=== PATIENT | male | born 1960 | race African-American/Black ===

== ENCOUNTER 2016-06-03 19:24 | Inpatient (IN) | payer MEDICARE, OTHER ==
[2016-06-03 19:53] VITALS: BMI 32.6
--- NOTE | 2016-06-03 20:20 | HP ---
CIWA Score - CIWA Score Nausea/Vomitin Muscle Tremors: 4-Moderate,w/Arms Extend Anxiety: 4-Mod. Anxious/Guarded Agitation: 4-Moderately Restless Paroxysmal Sweats: 1-Minimal Palms Moist Orientation: 0-Oriented Tacttile Disturbances: 0-None Auditory Disturbances: 0-None Visual Disturbances: 0-None Headache: 0-None Present CIWA-Ar Total Score: 16 Admission ROS BHS - HPI Chief Complaint: C/O WITHDRAWAL SX'S. SEEKING DETOX TXMENT Allergies/Adverse Reactions: Allergies Allergy/AdvReac Type Severity Reaction Status Date / Time morphine Allergy Intermediate Hives Verified 06/03/16 20:15 tomato [Tomato] Allergy Intermediate RASH/ITCHIN Verified 06/03/16 20:15 G milk Allergy Mild Hives Verified 06/03/16 20:15 History of Present Illness: 55 Y.O. MALE WITH OPIOID DEPENDENCE ADMITTED TO DETOX FOR ALCOHOLISM. CLIENT IS KNOWN TO [facility]. REPORTS LONGEST CLEAN TIME 2.5 YEARS. Exam Limitations: No Limitations - Ebola screening Have you traveled outside of the country in the last 21 days: No Have you had contact with anyone from an Ebola affected area: No Have you been sick,other than usual withdrawal symptoms: No Do you have a fever: No - Review of Systems Constitutional: Chills, Changes in sleep EENT: reports: Other (GLASSES) Respiratory: reports: No Symptoms reported Cardiac: reports: No Symptoms Reported GI: reports: Nausea, Vomiting : reports: No Symptoms Reported Musculoskeletal: reports: Back Pain, Joint Pain Integumentary: reports: No Symptoms Reported Neuro: reports: Other (HEAD SHAKES R/T MEDS PER PT.) Endocrine: reports: Other (H/O DM) Hematology: reports: No Symptoms Reported Psychiatric: reports: No Sypmtoms Reported Other Systems: Reviewed and Negative Patient History - Patient Medical History Hx Anemia: No Hx Asthma: Yes Hx Chronic Obstructive Pulmonary Disease (COPD): No Hx Cancer: No Hx Cardiac Disorders: No Hx Congestive Heart Failure: No Hx Hypertension: Yes Hx Hypercholesterolemia: Yes Hx Pacemaker: No HX Cerebrovascular Accident: No Hx Seizures: No Hx Dementia: No Hx Diabetes: Yes Hx Gastrointestinal Disorders: No Hx Liver Disease: No Hx Genitourinary Disorders: No Hx Sexually Transmitted Disorders: No Hx Renal Disease (ESRD): No Hx Thyroid Disease: Yes Hx Human Immunodeficiency Virus (HIV): No Hx Hepatitis C: No Hx Depression: No Hx Suicide Attempt: No Hx Bipolar Disorder: No Hx Schizophrenia: Yes Other Medical History: BIPOLAR - Patient Surgical History Past Surgical History: No Hx Neurologic Surgery: No Hx Cataract Extraction: No Hx Cardiac Surgery: No Hx Lung Surgery: No Hx Breast Surgery: No Hx Breast Biopsy: No Hx Abdominal Surgery: No Hx Appendectomy: No Hx Cholecystectomy: No Hx Genitourinary Surgery: No Hx Section: No Hx Orthopedic Surgery: No Anesthesia Reaction: No - PPD History Previous Implant?: Yes Documented Results: Negative w/proof Implanted On Prior [facility] Admission?: Yes Date: 02/13/16 Results: 0 mm PPD to be Administered?: No - Smoking Cessation Smoking history: Current every day smoker Have you smoked in the past 12 months: Yes Aproximately how many cigarettes per day: 10 Cigars Per Day: 0 Hx Chewing Tobacco Use: No Initiated information on smoking cessation: Yes 'Breaking Loose' booklet given: 06/03/16 - Substance & Tx. History Hx Alcohol Use: Yes Hx Substance Use: Yes Substance Use Type: Cocaine (UTOX NEG), Marijuana (UTOX NEG) Hx Substance Use Treatment: Yes ([facility]) - Substances Abused CHERRIE Route: Oral Frequency: Daily Amount used: 0.5 PINT Age of first use: 13 Date of Last Use: 06/03/16 Family Disease History - Family Disease History Family Disease History: Heart Disease: Father (CAD,), Mother (HTN) Admission Physical Exam [facility] - Vital Signs Vital Signs: Vital Signs - 24 hr 06/03/16 19:48 Temperature 96.9 F L Pulse Rate 94 H Respiratory 20 Rate Blood Pressure 122/85 - Physical General Appearance: Yes: Tremorous, Anxious HEENTM: Yes: EOMI, Normocephalic, Normal Voice, ASHLEY, Pharynx Normal, Other ( POOR DENTITION) Respiratory: Yes: Chest Non-Tender, Lungs Clear, Normal Breath Sounds, No Respiratory Distress, No Accessory Muscle Use Neck: Yes: No masses,lesions,Nodules, Supple, Trachea in good position Breast: Yes: Breast Exam Deferred Cardiology: Yes: Regular Rhythm, S1, S2, Tachycardia Abdominal: Yes: Normal Bowel Sounds, Non Tender, Soft Genitourinary: Yes: Within Normal Limits Back: Yes: Normal Inspection Musculoskeletal: Yes: full range of Motion, Gait Steady Extremities: Yes: Normal Capillary Refill, Normal Range of Motion, Non-Tender, Tremors 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 NML intact, Fully Oriented, Alert, Motor Strength 5/5 Integumentary: Yes: Normal Color, Dry, Warm Lymphatic: Yes: Within Normal Limits - Diagnostic (1) Alcohol dependence with uncomplicated withdrawal Current Visit: Yes Status: Chronic (2) Asthma Current Visit: Yes Status: Chronic Qualifiers: Asthma severity: mild persistent Asthma complication type: with status asthmaticus Qualified Code(s): J45.32 - Mild persistent asthma with status asthmaticus (3) Diabetes mellitus type II, non insulin dependent Current Visit: Yes Status: Chronic (4) Hypercholesteremia Current Visit: Yes Status: Chronic (5) Hypertension Current Visit: Yes Status: Chronic Qualifiers: Hypertension type: essential hypertension Qualified Code(s): I10 - Essential (primary) hypertension (6) Nicotine dependence Current Visit: Yes Status: Chronic Cleared for Admission [facility] - Detox or Rehab [facility] Level of Care: Medically Managed Detox Regimen/Protocol: Librium [facility] Breath Alcohol Content Breath Alcohol Content: 0.059 Urine Drug Screen - Results Drug Screen Negative: Yes
[2016-06-03] MEDS ORDERED: NICOTINE POLACRILEX 2 MG GUM BC PRN (20:29)
[2016-06-03] MEDS ORDERED: P-EPHED 60MG/TRIPROLIDI 2.5MG TABLET PO PRN (20:29)
[2016-06-03] MEDS ORDERED: MAG HYDROX/AL HYDROX/SIMETH 30 ML UNIT-DOSE CUP PO PRN (20:29)
[2016-06-03] MEDS ORDERED: hydrOXYzine PAMOATE 50 MG CAPSULE (FP) PO PRN (20:29)
[2016-06-03] MEDS ORDERED: chlordiazePOXIDE HCL 25 MG CAPSULE PO PRN (20:29)
[2016-06-03] MEDS ORDERED: IBUPROFEN 400 MG TABLET (FP) PO PRN (20:29)
[2016-06-03] MEDS ORDERED: ACETAMINOPHEN 325 MG TABLET (FP) PO PRN (20:29)
[2016-06-03] MEDS ORDERED: diphenhydrAMINE HCL 50 MG CAPSULE PO PRN (20:29)
[2016-06-03] MEDS ORDERED: MAGNESIUM CITRATE 300 ML BOTTLE PO PRN (20:29)
[2016-06-03] MEDS ORDERED: MENTHOL/PHENOL 1 EACH UD MM PRN (20:29)
[2016-06-03] MEDS ORDERED: guaiFENesin/D-METHORPHAN HB 10 ML UNIT-DOSE CUPS PO PRN (20:29)
[2016-06-03] MEDS ORDERED: LOPERAMIDE HCL 2 MG CAPSULE PO PRN (20:29)
[2016-06-03] MEDS ORDERED: ALBUTEROL SO4 6.7 GM HFA INHALER IH PRN (20:31)
[2016-06-03] MEDS: NICOTINE 14 MG/24 HOURS TOPICAL PATCH TD SCH (21:42)
[2016-06-03] MEDS: ATORVASTATIN CA 10 MG TABLET (FP) PO SCH (21:42)
[2016-06-03] MEDS: THIAMINE HCL 100 MG TABLET (FP) PO SCH (21:42)
[2016-06-03] MEDS: BUDESONIDE/FORMETEROL FUMARATE 160/4.5 mcg INHALER IH SCH (21:43)
[2016-06-03] MEDS: chlordiazePOXIDE HCL 25 MG CAPSULE PO SCH (22:41)
[2016-06-03] MEDS: CYCLOBENZAPRINE HCL 10 MG TABLET (FP) PO PRN (22:42)
[2016-06-03 23:06] LABS: URINE APPEARANCE CLEAR; URINE BILIRUBIN NEGATIVE (NEGATIVE); URINE BLOOD NEGATIVE (NEGATIVE); URINE COLOR YELLOW; URINE GLUCOSE (UA) NEGATIVE (NEGATIVE); URINE KETONE NEGATIVE (NEGATIVE); URINE LEUK ESTERASE NEGATIVE (NEGATIVE); URINE NITRITE NEGATIVE (NEGATIVE); URINE PROTEIN NEGATIVE (NEGATIVE); URINE UROBILINOGEN NEGATIVE E.U./dl (0.2-1.0)
[2016-06-04] MEDS: chlordiazePOXIDE HCL 25 MG CAPSULE PO SCH ×4 (05:21→22:07)
[2016-06-04] MEDS: metFORMIN HCL 500 MG TABLET (FP) PO SCH ×2 (07:15→17:23)
--- NOTE | 2016-06-04 08:56 | PN ---
S CIWA - CIWA Score Nausea/Vomitin Muscle Tremors: 3 Anxiety: 3 Agitation: 2 Paroxysmal Sweats: 1-Minimal Palms Moist Orientation: 0-Oriented Tacttile Disturbances: 1-Very Mild Itch/Numbness Auditory Disturbances: 1-Very Mild Visual Disturbances: 1-Very Mild Sensitivity Headache: 2-Mild CIWA-Ar Total Score: 17 BHS Progress Note (SOAP) Subjective: ALERT,IRRITABLE,ANXIOUS,INTERRUPTED SLEEP,TREMOR, Objective: 06/04/16 08:54 Vital Signs Temperature 97.5 F L 06/04/16 06:00 Pulse Rate 71 06/04/16 06:00 Respiratory Rate 18 06/04/16 06:00 Blood Pressure 107/65 06/04/16 06:00 O2 Sat by Pulse Oximetry (%) EKG NSR NO CHEST PAIN,NO SOB,NO DIZZINESS Laboratory Last Values POC Glucometer 90 UNITS (()) 06/04/16 04:46 Urine Color Yellow 06/03/16 21:36 Urine Appearance Clear 06/03/16 21:36 Urine pH 6.0 (5.0-8.0) 06/03/16 21:36 Ur Specific [place] 1.018 (1.001-1.035) 06/03/16 21:36 Urine Protein Negative (NEGATIVE) 06/03/16 21:36 Urine Glucose (UA) Negative (NEGATIVE) 06/03/16 21:36 Urine Ketones Negative (NEGATIVE) 06/03/16 21:36 Urine Blood Negative (NEGATIVE) 06/03/16 21:36 Urine Nitrite Negative (NEGATIVE) 06/03/16 21:36 Urine Bilirubin Negative (NEGATIVE) 06/03/16 21:36 Urine Urobilinogen Negative E.U./dl (0.2-1.0) 06/03/16 21:36 Ur Leukocyte Esterase Negative (NEGATIVE) 06/03/16 21:36 LABS PENDING Assessment: 06/04/16 08:55 WITHDRAWAL SYMPTOM Plan: CONTINUE DETOX,BGM MONITORING
[2016-06-04] MEDS: amLODIPine BESYLATE 5 MG TABLET (FP) PO SCH (10:15)
[2016-06-04] MEDS: NICOTINE 14 MG/24 HOURS TOPICAL PATCH TD SCH (10:15)
[2016-06-04] MEDS: CYCLOBENZAPRINE HCL 10 MG TABLET (FP) PO PRN (10:15)
[2016-06-04] MEDS: PRENATAL VITAMINS W/ FOLIC ACID TABLET (FP) PO SCH (10:15)
[2016-06-04] MEDS: BUDESONIDE/FORMETEROL FUMARATE 160/4.5 mcg INHALER IH SCH ×2 (10:16→22:07)
[2016-06-04 10:30] LABS: MCH 28.3 pg (25.7-33.7); MEAN CELL VOLUME 85.5 fl (80-96); MEAN PLT VOLUME 6.8 fl (7.5-11.1); PLATELET COUNT 259 K/MM3 (134-434); RDW 13.3 % (11.9-15.9); WHITE BLOOD COUNT 5.5 K/mm3 (4.0-10.0)
[2016-06-04 10:39] LABS: ALBUMIN 3.7 g/dl (3.4-5.0); ALK PHOS 78 U/L (45-117); ANION GAP 9 (8-16); BILIRUBIN,TOTAL 0.5 mg/dL (0.2-1.0); CALCIUM 8.1 mg/dL (8.5-10.1); CO2 29 mmol/L (21-32); CREATININE 0.7 mg/dL (0.7-1.3); GLUCOSE,RANDOM 86 mg/dL (74-106); SGOT/AST 18 U/L (15-37); SGPT/ALT 21 U/L (12-78); TOT PROT 6.4 g/dl (6.4-8.2)
--- NOTE | 2016-06-04 14:43 | CONSULT ---
[facility] Psychiatric Consult - Data Date of interview: 06/04/16 Admission source: [facility] Identifying data: Another admission to [facility] for this 55 y/o AA male seeking detox treatment on for alcohol,cocaine,benzodiazepine and marijuana dependence.Patient is single without children,domiciled,unemployed and supported on [facility] benefits. Substance Abuse History: - Smoking Cessation. Smoking history: Current every day smoker. Have you smoked in the past 12 months: Yes. Aproximately how many cigarettes per day: 10. Cigars Per Day: 0. Hx Chewing Tobacco Use: No. Initiated information on smoking cessation: Yes. 'Breaking Loose' booklet given : 06/03/16. - Substance & Tx. History. Hx Alcohol Use: Yes. Hx Substance Use : Yes. Substance Use Type: Cocaine (UTOX NEG), Marijuana (UTOX NEG). Hx Substance Use Treatment: Yes ([facility]). - Substances Abused. CHERRIE. Route: Oral. Frequency: Daily. Amount used: 0.5 PINT. Age of first use: 13. Date of Last Use: 06/03/16. Confirmed by patient. Medical History: Bronchial asthma,hypercholesterolemia,hypertension,diabetes mellitus-type II,COPD and a questionable history of hypothyroidism. Psychiatric History: History of two psychiatric hospitalizations at [facility] [place] [facility].Diagnosed with " schizobipolar disorder ".No OPD care.Patient states that he gets scripts from emergency room visits.Prescribed risperdal 1 mg/day + cogentin 1 mg/day + trazodone 50 mg/hs and vistaril 50 mg/hs.Last took these medications prior to this [facility] visit.Doses verified through pharmacy claims (noted filled scripts for these drugs @ the [facility] on 05/25/16).Mr Martinez denies history of suicide attempts. Physical/Sexual Abuse/Trauma History: Patient denies. Additional Comment: Drug Screen Negative: Yes.Noted. Mental Status Exam - Mental Status Exam Alert and Oriented to: Time, Place, Person Cognitive Function: Good Patient Appearance: Well Groomed Mood: Hopeful, Euthymic Affect: Normal Range Patient Behavior: Fatigued, Appropriate, Cooperative Speech Pattern: Clear, Appropriate Voice Loudness: Normal Thought Process: Goal Oriented Thought Disorder: Not Present Hallucinations: Denies Suicidal Ideation: Denies Homicidal Ideation: Denies Insight/Judgement: Fair Sleep: Fair Appetite: Good Muscle strength/Tone: Normal Gait/Station: Normal Psychiatric Findings - Problem List ([place] 1, 2,3) (1) Alcohol dependence with uncomplicated withdrawal Current Visit: Yes Status: Chronic (2) Nicotine dependence Current Visit: Yes Status: Acute (3) Schizoaffective disorder, bipolar type Current Visit: Yes Status: Chronic (4) Asthma Current Visit: Yes Status: Chronic Qualifiers: Asthma severity: mild persistent Asthma complication type: with status asthmaticus Qualified Code(s): J45.32 - Mild persistent asthma with status asthmaticus (5) Diabetes mellitus type II, non insulin dependent Current Visit: Yes Status: Chronic (6) Hypercholesteremia Current Visit: Yes Status: Chronic (7) Hypertension Current Visit: Yes Status: Chronic Qualifiers: Hypertension type: essential hypertension Qualified Code(s): I10 - Essential (primary) hypertension (8) Arthritis Current Visit: Yes Status: Chronic (9) COPD (chronic obstructive pulmonary disease) Current Visit: Yes Status: Chronic Qualifiers: COPD type: emphysema Emphysema type: unspecified Qualified Code( s): J43.9 - Emphysema, unspecified (10) Obesity Current Visit: Yes Status: Chronic - Initial Treatment Plan Initial Treatment Plan: Psychoeducation.Detoxification.Medications resumed (as per Psychiatric History list).Side effects/benefits discussed with patient.Made aware of the particular risk of priapism.Agreement (verbal) secured.Observation.No need for scripts at discharge.
[2016-06-04] MEDS: MAGNESIUM HYDROX 2400MG/30ML ORAL SUSPENSION 30 ML CUP PO PRN (17:25)
[2016-06-04] MEDS: THIAMINE HCL 100 MG TABLET (FP) PO SCH (22:08)
[2016-06-04] MEDS: traZODone HCL 50 MG TABLET (FP) PO SCH (22:08)
[2016-06-04] MEDS: BENZTROPINE MESYLATE 1 MG TABLET (FP) PO SCH (22:08)
[2016-06-04] MEDS: ATORVASTATIN CA 10 MG TABLET (FP) PO SCH (22:08)
[2016-06-04] MEDS: risperiDONE 1 MG TABLET (FP) PO SCH (22:09)
[2016-06-05] MEDS: chlordiazePOXIDE HCL 25 MG CAPSULE PO SCH ×3 (05:27→17:50)
[2016-06-05] MEDS: metFORMIN HCL 500 MG TABLET (FP) PO SCH ×2 (07:57→17:30)
--- NOTE | 2016-06-05 09:42 | PN ---
S CIWA - CIWA Score Nausea/Vomitin Muscle Tremors: 3 Anxiety: 2 Agitation: 2 Paroxysmal Sweats: 1-Minimal Palms Moist Orientation: 0-Oriented Tacttile Disturbances: 1-Very Mild Itch/Numbness Auditory Disturbances: 1-Very Mild Visual Disturbances: 1-Very Mild Sensitivity Headache: 2-Mild CIWA-Ar Total Score: 16 BHS Progress Note (SOAP) Subjective: ALERT,IRRITABLE,ANXIOUS,INTERRUPTED SLEEP,TREMOR,PAIN IN BOTH KNEES Objective: 06/05/16 09:41 Vital Signs Temperature 97.7 F 06/05/16 06:24 Pulse Rate 77 06/05/16 06:24 Respiratory Rate 18 06/05/16 06:24 Blood Pressure 127/74 06/05/16 06:24 O2 Sat by Pulse Oximetry (%) Laboratory Last Values WBC 5.5 K/mm3 (4.0-10.0) 06/04/16 07:30 RBC 4.52 M/mm3 (4.00-5.60) 06/04/16 07:30 Hgb 12.8 GM/dL (11.7-16.9) 06/04/16 07:30 Hct 38.6 % (35.4-49) 06/04/16 07:30 MCV 85.5 fl (80-96) 06/04/16 07:30 MCHC 33.0 g/dl (32.0-35.9) 06/04/16 07:30 RDW 13.3 % (11.9-15.9) 06/04/16 07:30 Plt Count 259 K/MM3 (134-434) 06/04/16 07:30 MPV 6.8 fl (7.5-11.1) L 06/04/16 07:30 Sodium 140 mmol/L (136-145) 06/04/16 07:30 Potassium 4.1 mmol/L (3.5-5.1) 06/04/16 07:30 Chloride 102 mmol/L (98-107) 06/04/16 07:30 Carbon Dioxide 29 mmol/L (21-32) 06/04/16 07:30 Anion Gap 9 (8-16) 06/04/16 07:30 BUN 18 mg/dL (7-18) D 06/04/16 07:30 Creatinine 0.7 mg/dL (0.7-1.3) 06/04/16 07:30 Creat Clearance w eGFR > 60 (>60) 06/04/16 07:30 POC Glucometer 109 UNITS (()) 06/04/16 16:39 Random Glucose 86 mg/dL (74-106) 06/04/16 07:30 Calcium 8.1 mg/dL (8.5-10.1) L 06/04/16 07:30 Total Bilirubin 0.5 mg/dL (0.2-1.0) D 06/04/16 07:30 AST 18 U/L (15-37) D 06/04/16 07:30 ALT 21 U/L (12-78) D 06/04/16 07:30 Alkaline Phosphatase 78 U/L (45-117) D 06/04/16 07:30 Total Protein 6.4 g/dl (6.4-8.2) 06/04/16 07:30 Albumin 3.7 g/dl (3.4-5.0) 06/04/16 07:30 Urine Color Yellow 06/03/16 21:36 Urine Appearance Clear 06/03/16 21:36 Urine pH 6.0 (5.0-8.0) 06/03/16 21:36 Ur Specific [place] 1.018 (1.001-1.035) 06/03/16 21:36 Urine Protein Negative (NEGATIVE) 06/03/16 21:36 Urine Glucose (UA) Negative (NEGATIVE) 06/03/16 21:36 Urine Ketones Negative (NEGATIVE) 06/03/16 21:36 Urine Blood Negative (NEGATIVE) 06/03/16 21:36 Urine Nitrite Negative (NEGATIVE) 06/03/16 21:36 Urine Bilirubin Negative (NEGATIVE) 06/03/16 21:36 Urine Urobilinogen Negative E.U./dl (0.2-1.0) 06/03/16 21:36 Ur Leukocyte Esterase Negative (NEGATIVE) 06/03/16 21:36 RPR Titer Reactive 1:2 (NONREACTIVE) H 06/04/16 07:30 T.pallidum Ab (MHA) Previously reactive (NONREACTIVE) 06/04/16 07:30 06/05/16 09:42 06/05/16 09:52 PREVIOUSLY TREATED FOR SYPHILIS Assessment: 06/05/16 09:53 WITHDRAWAL SYMPTOM Plan: CONTINUE DETOX
[2016-06-05] MEDS: CYCLOBENZAPRINE HCL 10 MG TABLET (FP) PO PRN (10:33)
[2016-06-05] MEDS: amLODIPine BESYLATE 5 MG TABLET (FP) PO SCH (10:33)
[2016-06-05] MEDS: PRENATAL VITAMINS W/ FOLIC ACID TABLET (FP) PO SCH (10:33)
[2016-06-05] MEDS: NICOTINE 14 MG/24 HOURS TOPICAL PATCH TD SCH (10:34)
[2016-06-05] MEDS: BUDESONIDE/FORMETEROL FUMARATE 160/4.5 mcg INHALER IH SCH ×2 (10:34→22:23)
[2016-06-05] MEDS: MAGNESIUM HYDROX 2400MG/30ML ORAL SUSPENSION 30 ML CUP PO PRN (15:16)
[2016-06-05] MEDS: IBUPROFEN 600 MG TABLET (FP) PO PRN (17:40)
[2016-06-05] MEDS: risperiDONE 1 MG TABLET (FP) PO SCH (22:23)
[2016-06-05] MEDS: chlordiazePOXIDE 5 MG CAPSULE PO SCH (22:23)
[2016-06-05] MEDS: THIAMINE HCL 100 MG TABLET (FP) PO SCH (22:23)
[2016-06-05] MEDS: ATORVASTATIN CA 10 MG TABLET (FP) PO SCH (22:23)
[2016-06-05] MEDS: BENZTROPINE MESYLATE 1 MG TABLET (FP) PO SCH (22:23)
[2016-06-05] MEDS: traZODone HCL 50 MG TABLET (FP) PO SCH (22:23)
[2016-06-06] MEDS: chlordiazePOXIDE 5 MG CAPSULE PO SCH ×3 (05:27→17:37)
[2016-06-06] MEDS: metFORMIN HCL 500 MG TABLET (FP) PO SCH ×2 (07:56→17:25)
[2016-06-06] MEDS: amLODIPine BESYLATE 5 MG TABLET (FP) PO SCH (10:15)
[2016-06-06] MEDS: PRENATAL VITAMINS W/ FOLIC ACID TABLET (FP) PO SCH (10:15)
[2016-06-06] MEDS: IBUPROFEN 600 MG TABLET (FP) PO PRN ×2 (10:16→21:23)
[2016-06-06] MEDS: BUDESONIDE/FORMETEROL FUMARATE 160/4.5 mcg INHALER IH SCH ×2 (10:16→22:04)
[2016-06-06] MEDS: CYCLOBENZAPRINE HCL 10 MG TABLET (FP) PO PRN (10:16)
[2016-06-06] MEDS: NICOTINE 14 MG/24 HOURS TOPICAL PATCH TD SCH (10:16)
--- NOTE | 2016-06-06 10:37 | PN ---
S Progress Note (SOAP) Subjective: ALERT,IRRITABLE,ANXIOUS,INTERRUPTED SLEEP Objective: 06/06/16 10:36 Vital Signs Temperature 98.1 F 06/06/16 09:50 Pulse Rate 78 06/06/16 09:50 Respiratory Rate 18 06/06/16 09:50 Blood Pressure 141/78 06/06/16 09:50 O2 Sat by Pulse Oximetry (%) Assessment: 06/06/16 10:36 WITHDRAWAL SYMPTOM Plan: CONTINUE DETOX,DISCHARGE IN AM
[2016-06-06] MEDS: risperiDONE 1 MG TABLET (FP) PO SCH (22:03)
[2016-06-06] MEDS: traZODone HCL 50 MG TABLET (FP) PO SCH (22:03)
[2016-06-06] MEDS: chlordiazePOXIDE HCL 10 MG CAPSULE PO SCH (22:03)
[2016-06-06] MEDS: BENZTROPINE MESYLATE 1 MG TABLET (FP) PO SCH (22:03)
[2016-06-06] MEDS: ATORVASTATIN CA 10 MG TABLET (FP) PO SCH (22:03)
[2016-06-06] MEDS: THIAMINE HCL 100 MG TABLET (FP) PO SCH (22:04)
[2016-06-07] MEDS: chlordiazePOXIDE HCL 10 MG CAPSULE PO SCH ×2 (05:23→10:21)
[2016-06-07] MEDS: metFORMIN HCL 500 MG TABLET (FP) PO SCH (07:29)
--- NOTE | 2016-06-07 08:52 | DS ---
[facility] Detox Discharge Summary Admission Date: 06/03/16 - Physical Exam Results Vital Signs: Vital Signs Temperature 97.3 F L 06/07/16 06:00 Pulse Rate 99 H 06/07/16 06:00 Respiratory Rate 20 06/07/16 06:00 Blood Pressure 131/68 06/07/16 06:00 O2 Sat by Pulse Oximetry (%) - Medication Discharge Medications: Ambulatory Orders Budesonide/Formeterol Fumarate [SYMBICORT 160/4.5mcg -] 1 inh PO BID 01/26/13 Albuterol Sulfate Inhaler - [Ventolin HFA Inhaler -] 2 inh IH Q4H PRN #1 inh Atorvastatin Ca [Lipitor] 10 mg PO HS #30 tablet 02/02/13 Amlodipine Besylate [Norvasc -] 5 mg PO DAILY 02/11/16 Benztropine Mesylate [Cogentin -] 2 mg PO HS 02/11/16 Metformin HCl [Glucophage -] 500 mg PO BID 02/11/16 Risperidone [Risperdal] 1 mg PO HS 02/11/16 Trazodone HCl [Desyrel -] 50 mg PO HS 02/11/16
--- NOTE | 2016-06-07 08:55 | DS ---
[facility] Detox Discharge Summary Admission Date: 06/03/16 Discharge Date: 06/07/16 - History Present History: Alcohol Dependence, Cannabis Dependence, Cocaine Dependence - Physical Exam Results Vital Signs: Vital Signs Temperature 97.3 F L 06/07/16 06:00 Pulse Rate 99 H 06/07/16 06:00 Respiratory Rate 20 06/07/16 06:00 Blood Pressure 131/68 06/07/16 06:00 O2 Sat by Pulse Oximetry (%) - Treatment Hospital Course: Detox Protocol Followed, Detoxed Safely, Responded well, Discharged Condition Good - Medication Discharge Medications: Ambulatory Orders Budesonide/Formeterol Fumarate [SYMBICORT 160/4.5mcg -] 1 inh PO BID 01/26/13 Albuterol Sulfate Inhaler - [Ventolin HFA Inhaler -] 2 inh IH Q4H PRN #1 inh Atorvastatin Ca [Lipitor] 10 mg PO HS #30 tablet 02/02/13 Amlodipine Besylate [Norvasc -] 5 mg PO DAILY 02/11/16 Benztropine Mesylate [Cogentin -] 2 mg PO HS 02/11/16 Metformin HCl [Glucophage -] 500 mg PO BID 02/11/16 Risperidone [Risperdal] 1 mg PO HS 02/11/16 Trazodone HCl [Desyrel -] 50 mg PO HS 02/11/16 - Diagnosis (1) Cocaine dependence Current Visit: Yes Status: Chronic (2) Cannabis dependence Current Visit: Yes Status: Chronic (3) Nicotine dependence Current Visit: Yes Status: Chronic (4) Alcohol dependence with uncomplicated withdrawal Current Visit: Yes Status: Chronic (5) Asthma Current Visit: Yes Status: Chronic Qualifiers: Asthma severity: mild persistent Asthma complication type: with status asthmaticus Qualified Code(s): J45.32 - Mild persistent asthma with status asthmaticus (6) Diabetes mellitus type II, non insulin dependent Current Visit: Yes Status: Chronic (7) Hypertension Current Visit: Yes Status: Chronic Qualifiers: Hypertension type: essential hypertension Qualified Code(s): I10 - Essential (primary) hypertension (8) Obesity Current Visit: Yes Status: Chronic (9) Schizoaffective disorder, bipolar type Current Visit: Yes Status: Chronic - AMA Did Patient Leave Against Medical Advice: No
[2016-06-07 10:08] VITALS: BP 131/71; PULSE 92; TEMP 97.1
[2016-06-07] MEDS: PRENATAL VITAMINS W/ FOLIC ACID TABLET (FP) PO SCH (10:21)
[2016-06-07] MEDS: NICOTINE 14 MG/24 HOURS TOPICAL PATCH TD SCH (10:21)
[2016-06-07] MEDS: amLODIPine BESYLATE 5 MG TABLET (FP) PO SCH (10:21)
[2016-06-07] MEDS: BUDESONIDE/FORMETEROL FUMARATE 160/4.5 mcg INHALER IH SCH (10:21)
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
[2016-06-07] MEDS ORDERED: BENZTROPINE MESYLATE 2 MG TABLET PO SCH (22:00)
[2016-06-07] MEDS ORDERED: traZODone HCL 50 MG TABLET (FP) PO SCH (22:00)
[2016-06-07] MEDS ORDERED: risperiDONE 1 MG TABLET (FP) PO SCH (22:00)
--- NOTE | 2016-06-08 16:59 | EKG ---
Test Reason : Blood Pressure : / mmHG Vent. Rate : 089 BPM Atrial Rate : 089 BPM P-R Int : 166 ms QRS Dur : 088 ms QT Int : 350 ms P-R-T Axes : 077 010 027 degrees QTc Int : 425 ms NORMAL SINUS RHYTHM POSSIBLE INFERIOR INFARCT , AGE UNDETERMINED ABNORMAL ECG NO PREVIOUS ECGS AVAILABLE Confirmed by MURALI CASTILLO MD ([id number]) on 06/08/2016 4:59:30 PM Referred By: Confirmed By:MURALI CASTILLO MD
== END 2016-06-07 11:50 | disposition other institution (70) | DRG 897 ==
LOC: YASAS 19:24 → Y6N 21:15
PROVIDERS: ADMIT Internal Medicine Addiction Medicine; ATTEND Internal Medicine Addiction Medicine
PROC: HZ2ZZZZ Detoxification Services for Substance Abuse Treatment (ICD-10-PCS; principal; 2016-06-07)
DX: F10.230 Alcohol dependence with withdrawal, uncomplicated (principal); F14.20 Cocaine dependence, uncomplicated; J45.32 Mild persistent asthma with status asthmaticus; F12.20 Cannabis dependence, uncomplicated; F17.210 Nicotine dependence, cigarettes, uncomplicated; F25.0 Schizoaffective disorder, bipolar type; I10 Essential (primary) hypertension; E11.9 Type 2 diabetes mellitus without complications; Z79.84 Long term (current) use of oral hypoglycemic drugs; M12.9 Arthropathy, unspecified; E66.09 Other obesity due to excess calories; Z68.32 Body mass index [BMI] 32.0-32.9, adult
CPT/HCPCS: 36415; 80053; 81003; 85027; 86593; 86780; 93005; 93010; J2794

== ENCOUNTER 2016-06-07 13:51 | Inpatient (IN) | payer MEDICARE, OTHER ==
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
--- NOTE | 2016-06-07 16:18 | HP ---
DIANA PERES Rehab Assess/Revision - Admission History Admitted to Rehab from: [facility] [address] [place] Date of Admission to Rehab: 06/07/16 - Findings Detox History & Physical reviewed: Yes Concur with findings: Yes Comments/Additional Findings: transferred from detox to rehab admission as per protocol
[2016-06-07] MEDS ORDERED: diphenhydrAMINE HCL 50 MG CAPSULE PO PRN (16:19)
[2016-06-07] MEDS ORDERED: P-EPHED 60MG/TRIPROLIDI 2.5MG TABLET PO PRN (16:19)
[2016-06-07] MEDS ORDERED: MENTHOL/PHENOL 1 EACH UD MM PRN (16:19)
[2016-06-07] MEDS ORDERED: MAG HYDROX/AL HYDROX/SIMETH 30 ML UNIT-DOSE CUP PO PRN (16:19)
[2016-06-07] MEDS ORDERED: LOPERAMIDE HCL 2 MG CAPSULE PO PRN (16:19)
[2016-06-07] MEDS ORDERED: guaiFENesin/D-METHORPHAN HB 10 ML UNIT-DOSE CUPS PO PRN (16:19)
[2016-06-07] MEDS ORDERED: NICOTINE 14 MG/24 HOURS TOPICAL PATCH TD PRN (16:19)
[2016-06-07] MEDS ORDERED: MAGNESIUM CITRATE 300 ML BOTTLE PO PRN (16:19)
[2016-06-07] MEDS: metFORMIN HCL 500 MG TABLET (FP) PO SCH (17:04)
[2016-06-07] MEDS: risperiDONE 1 MG TABLET (FP) PO SCH (21:22)
[2016-06-07] MEDS: BENZTROPINE MESYLATE 1 MG TABLET (FP) PO SCH (21:22)
[2016-06-07] MEDS: traZODone HCL 50 MG TABLET (FP) PO SCH (21:22)
[2016-06-07] MEDS: hydrOXYzine PAMOATE 50 MG CAPSULE (FP) PO PRN (21:22)
[2016-06-07] MEDS: ATORVASTATIN CA 10 MG TABLET (FP) PO SCH (21:22)
[2016-06-07] MEDS: THIAMINE HCL 100 MG TABLET (FP) PO SCH (21:23)
[2016-06-08] MEDS: metFORMIN HCL 500 MG TABLET (FP) PO SCH ×2 (07:13→17:27)
[2016-06-08] MEDS: hydrOXYzine PAMOATE 50 MG CAPSULE (FP) PO PRN (08:33)
[2016-06-08] MEDS: amLODIPine BESYLATE 5 MG TABLET (FP) PO SCH (10:42)
[2016-06-08] MEDS: PRENATAL VITAMINS W/ FOLIC ACID TABLET (FP) PO SCH (10:42)
[2016-06-08] MEDS: NICOTINE POLACRILEX 2 MG GUM BUC PRN (10:43)
[2016-06-08 13:17] LABS: HIV 1 & 2 AB NEGATIVE; HIV 1 AGp24 NEGATIVE
[2016-06-08] MEDS: traZODone HCL 50 MG TABLET (FP) PO SCH (21:14)
[2016-06-08] MEDS: THIAMINE HCL 100 MG TABLET (FP) PO SCH (21:14)
[2016-06-08] MEDS: risperiDONE 1 MG TABLET (FP) PO SCH (21:14)
[2016-06-08] MEDS: BENZTROPINE MESYLATE 1 MG TABLET (FP) PO SCH (21:15)
[2016-06-08] MEDS: ATORVASTATIN CA 10 MG TABLET (FP) PO SCH (21:15)
[2016-06-09] MEDS: metFORMIN HCL 500 MG TABLET (FP) PO SCH ×2 (07:13→16:47)
[2016-06-09] MEDS: amLODIPine BESYLATE 5 MG TABLET (FP) PO SCH (10:22)
[2016-06-09] MEDS: hydrOXYzine PAMOATE 50 MG CAPSULE (FP) PO PRN ×2 (10:22→21:12)
[2016-06-09] MEDS: PRENATAL VITAMINS W/ FOLIC ACID TABLET (FP) PO SCH (10:22)
[2016-06-09] MEDS ORDERED: PT OWN MED DRAWER 7, Y5N ONE (10:26)
[2016-06-09] MEDS ORDERED: NICOTINE POLACRILEX 4 MG GUM BUC ONE (17:44)
[2016-06-09] MEDS: NICOTINE POLACRILEX 2 MG GUM BUC PRN (17:45)
[2016-06-09] MEDS: traZODone HCL 50 MG TABLET (FP) PO SCH (21:11)
[2016-06-09] MEDS: THIAMINE HCL 100 MG TABLET (FP) PO SCH (21:11)
[2016-06-09] MEDS: ATORVASTATIN CA 10 MG TABLET (FP) PO SCH (21:12)
[2016-06-09] MEDS: BENZTROPINE MESYLATE 1 MG TABLET (FP) PO SCH (21:12)
[2016-06-09] MEDS: risperiDONE 1 MG TABLET (FP) PO SCH (21:12)
[2016-06-09] MEDS: IBUPROFEN 400 MG TABLET (FP) PO PRN (21:13)
[2016-06-10] MEDS: ACETAMINOPHEN 325 MG TABLET (FP) PO PRN (06:11)
[2016-06-10] MEDS: metFORMIN HCL 500 MG TABLET (FP) PO SCH ×2 (07:07→17:11)
[2016-06-10] MEDS: amLODIPine BESYLATE 5 MG TABLET (FP) PO SCH (10:24)
[2016-06-10] MEDS: NICOTINE POLACRILEX 2 MG GUM BUC PRN (10:24)
[2016-06-10] MEDS: hydrOXYzine PAMOATE 50 MG CAPSULE (FP) PO PRN ×2 (10:24→21:11)
[2016-06-10] MEDS: PRENATAL VITAMINS W/ FOLIC ACID TABLET (FP) PO SCH (10:24)
[2016-06-10] MEDS: ALBUTEROL SO4 6.7 GM HFA INHALER IH PRN ×2 (17:12→21:13)
[2016-06-10] MEDS: traZODone HCL 50 MG TABLET (FP) PO SCH (21:11)
[2016-06-10] MEDS: THIAMINE HCL 100 MG TABLET (FP) PO SCH (21:11)
[2016-06-10] MEDS: IBUPROFEN 400 MG TABLET (FP) PO PRN (21:12)
[2016-06-10] MEDS: BENZTROPINE MESYLATE 1 MG TABLET (FP) PO SCH (21:12)
[2016-06-10] MEDS: risperiDONE 1 MG TABLET (FP) PO SCH (21:12)
[2016-06-10] MEDS: ATORVASTATIN CA 10 MG TABLET (FP) PO SCH (21:13)
[2016-06-10] MEDS ORDERED: PT OWN MED DRAWER 7, Y5N ONE (21:14)
[2016-06-11] MEDS: ALBUTEROL SO4 6.7 GM HFA INHALER IH PRN ×3 (06:30→21:22)
[2016-06-11] MEDS ORDERED: PT OWN MED DRAWER 7, Y5N ONE ×2 (06:30→10:38)
[2016-06-11] MEDS: metFORMIN HCL 500 MG TABLET (FP) PO SCH ×2 (06:32→16:53)
[2016-06-11] MEDS: hydrOXYzine PAMOATE 50 MG CAPSULE (FP) PO PRN ×2 (10:37→21:21)
[2016-06-11] MEDS: amLODIPine BESYLATE 5 MG TABLET (FP) PO SCH (10:37)
[2016-06-11] MEDS: PRENATAL VITAMINS W/ FOLIC ACID TABLET (FP) PO SCH (10:37)
[2016-06-11] MEDS: NICOTINE POLACRILEX 2 MG GUM BUC PRN ×3 (10:39→16:54)
[2016-06-11] MEDS: ACETAMINOPHEN 325 MG TABLET (FP) PO PRN (12:36)
[2016-06-11] MEDS: THIAMINE HCL 100 MG TABLET (FP) PO SCH (21:21)
[2016-06-11] MEDS: ATORVASTATIN CA 10 MG TABLET (FP) PO SCH (21:21)
[2016-06-11] MEDS: BENZTROPINE MESYLATE 1 MG TABLET (FP) PO SCH (21:21)
[2016-06-11] MEDS: traZODone HCL 50 MG TABLET (FP) PO SCH (21:21)
[2016-06-11] MEDS: risperiDONE 1 MG TABLET (FP) PO SCH (21:21)
[2016-06-12] MEDS: metFORMIN HCL 500 MG TABLET (FP) PO SCH ×2 (06:20→17:03)
[2016-06-12] MEDS: IBUPROFEN 400 MG TABLET (FP) PO PRN (10:46)
[2016-06-12] MEDS: ALBUTEROL SO4 6.7 GM HFA INHALER IH PRN ×3 (10:46→21:08)
[2016-06-12] MEDS: hydrOXYzine PAMOATE 50 MG CAPSULE (FP) PO PRN ×2 (10:46→21:06)
[2016-06-12] MEDS ORDERED: PT OWN MED DRAWER 7, Y5N ONE ×3 (10:46→21:08)
[2016-06-12] MEDS: amLODIPine BESYLATE 5 MG TABLET (FP) PO SCH (10:47)
[2016-06-12] MEDS: PRENATAL VITAMINS W/ FOLIC ACID TABLET (FP) PO SCH (10:47)
[2016-06-12] MEDS: NICOTINE POLACRILEX 2 MG GUM BUC PRN (12:34)
[2016-06-12] MEDS: traZODone HCL 50 MG TABLET (FP) PO SCH (21:06)
[2016-06-12] MEDS: THIAMINE HCL 100 MG TABLET (FP) PO SCH (21:06)
[2016-06-12] MEDS: BENZTROPINE MESYLATE 1 MG TABLET (FP) PO SCH (21:07)
[2016-06-12] MEDS: ATORVASTATIN CA 10 MG TABLET (FP) PO SCH (21:07)
[2016-06-12] MEDS: risperiDONE 1 MG TABLET (FP) PO SCH (21:07)
[2016-06-13] MEDS: metFORMIN HCL 500 MG TABLET (FP) PO SCH ×2 (06:18→16:51)
[2016-06-13] MEDS: amLODIPine BESYLATE 5 MG TABLET (FP) PO SCH (10:02)
[2016-06-13] MEDS: hydrOXYzine PAMOATE 50 MG CAPSULE (FP) PO PRN ×2 (10:02→21:23)
[2016-06-13] MEDS: PRENATAL VITAMINS W/ FOLIC ACID TABLET (FP) PO SCH (10:03)
[2016-06-13] MEDS: NICOTINE POLACRILEX 2 MG GUM BUC PRN ×2 (10:03→15:30)
[2016-06-13] MEDS ORDERED: PT OWN MED DRAWER 7, Y5N ONE (16:53)
[2016-06-13] MEDS: ALBUTEROL SO4 6.7 GM HFA INHALER IH PRN (16:53)
[2016-06-13] MEDS: MAGNESIUM HYDROX 2400MG/30ML ORAL SUSPENSION 30 ML CUP PO PRN (17:32)
[2016-06-13] MEDS: THIAMINE HCL 100 MG TABLET (FP) PO SCH (21:23)
[2016-06-13] MEDS: traZODone HCL 50 MG TABLET (FP) PO SCH (21:23)
[2016-06-13] MEDS: risperiDONE 1 MG TABLET (FP) PO SCH (21:23)
[2016-06-13] MEDS: BENZTROPINE MESYLATE 1 MG TABLET (FP) PO SCH (21:24)
[2016-06-13] MEDS: ATORVASTATIN CA 10 MG TABLET (FP) PO SCH (21:24)
[2016-06-14] MEDS: metFORMIN HCL 500 MG TABLET (FP) PO SCH ×2 (07:31→16:35)
[2016-06-14] MEDS: amLODIPine BESYLATE 5 MG TABLET (FP) PO SCH (10:29)
[2016-06-14] MEDS: PRENATAL VITAMINS W/ FOLIC ACID TABLET (FP) PO SCH (10:29)
[2016-06-14] MEDS: ALBUTEROL SO4 6.7 GM HFA INHALER IH PRN (10:30)
[2016-06-14] MEDS: NICOTINE POLACRILEX 2 MG GUM BUC PRN ×2 (10:30→18:15)
[2016-06-14] MEDS: hydrOXYzine PAMOATE 50 MG CAPSULE (FP) PO PRN ×2 (10:32→21:17)
[2016-06-14] MEDS: IBUPROFEN 400 MG TABLET (FP) PO PRN (12:38)
[2016-06-14] MEDS: ATORVASTATIN CA 10 MG TABLET (FP) PO SCH (21:16)
[2016-06-14] MEDS: THIAMINE HCL 100 MG TABLET (FP) PO SCH (21:16)
[2016-06-14] MEDS: risperiDONE 1 MG TABLET (FP) PO SCH (21:16)
[2016-06-14] MEDS: BENZTROPINE MESYLATE 1 MG TABLET (FP) PO SCH (21:16)
[2016-06-14] MEDS: traZODone HCL 50 MG TABLET (FP) PO SCH (21:16)
[2016-06-15] MEDS: metFORMIN HCL 500 MG TABLET (FP) PO SCH ×2 (07:12→16:47)
[2016-06-15] MEDS: NICOTINE POLACRILEX 2 MG GUM BUC PRN ×3 (07:46→16:47)
[2016-06-15] MEDS: hydrOXYzine PAMOATE 50 MG CAPSULE (FP) PO PRN ×2 (10:44→21:15)
[2016-06-15] MEDS: amLODIPine BESYLATE 5 MG TABLET (FP) PO SCH (10:44)
[2016-06-15] MEDS: ALBUTEROL SO4 6.7 GM HFA INHALER IH PRN (10:45)
[2016-06-15] MEDS: PRENATAL VITAMINS W/ FOLIC ACID TABLET (FP) PO SCH (10:46)
[2016-06-15] MEDS: MAGNESIUM HYDROX 2400MG/30ML ORAL SUSPENSION 30 ML CUP PO PRN (12:28)
[2016-06-15] MEDS: risperiDONE 1 MG TABLET (FP) PO SCH (21:15)
[2016-06-15] MEDS: BENZTROPINE MESYLATE 1 MG TABLET (FP) PO SCH (21:15)
[2016-06-15] MEDS: traZODone HCL 50 MG TABLET (FP) PO SCH (21:15)
[2016-06-15] MEDS: THIAMINE HCL 100 MG TABLET (FP) PO SCH (21:15)
[2016-06-15] MEDS: ATORVASTATIN CA 10 MG TABLET (FP) PO SCH (21:16)
[2016-06-16] MEDS: metFORMIN HCL 500 MG TABLET (FP) PO SCH ×2 (07:19→16:53)
[2016-06-16] MEDS: ALBUTEROL SO4 6.7 GM HFA INHALER IH PRN (10:21)
[2016-06-16] MEDS: amLODIPine BESYLATE 5 MG TABLET (FP) PO SCH (10:22)
[2016-06-16] MEDS: PRENATAL VITAMINS W/ FOLIC ACID TABLET (FP) PO SCH (10:22)
[2016-06-16] MEDS ORDERED: PT OWN MED DRAWER 7, Y5N ONE (10:22)
[2016-06-16] MEDS: hydrOXYzine PAMOATE 50 MG CAPSULE (FP) PO PRN ×3 (10:22→21:36)
[2016-06-16] MEDS: NICOTINE POLACRILEX 2 MG GUM BUC PRN (10:23)
[2016-06-16] MEDS: CYCLOBENZAPRINE HCL 10 MG TABLET (FP) PO PRN (21:35)
[2016-06-16] MEDS: BENZTROPINE MESYLATE 1 MG TABLET (FP) PO SCH (21:35)
[2016-06-16] MEDS: traZODone HCL 50 MG TABLET (FP) PO SCH (21:35)
[2016-06-16] MEDS: THIAMINE HCL 100 MG TABLET (FP) PO SCH (21:35)
[2016-06-16] MEDS: ATORVASTATIN CA 10 MG TABLET (FP) PO SCH (21:36)
[2016-06-16] MEDS: risperiDONE 1 MG TABLET (FP) PO SCH (21:36)
[2016-06-17] MEDS: metFORMIN HCL 500 MG TABLET (FP) PO SCH ×2 (06:42→16:51)
[2016-06-17] MEDS: amLODIPine BESYLATE 5 MG TABLET (FP) PO SCH (10:30)
[2016-06-17] MEDS: PRENATAL VITAMINS W/ FOLIC ACID TABLET (FP) PO SCH (10:31)
[2016-06-17] MEDS: hydrOXYzine PAMOATE 50 MG CAPSULE (FP) PO PRN ×2 (10:32→21:14)
[2016-06-17] MEDS: ALBUTEROL SO4 6.7 GM HFA INHALER IH PRN (10:32)
[2016-06-17] MEDS: NICOTINE POLACRILEX 2 MG GUM BUC PRN ×3 (10:33→19:30)
[2016-06-17] MEDS ORDERED: PT OWN MED DRAWER 7, Y5N ONE (10:33)
--- NOTE | 2016-06-17 17:04 | PN ---
[facility] Progress Note Note: RECEIVED NURSE INFORMED, PATIENT STATES THAT TAKING ASPIRIN AT HOME X "YEARS" DENIES ADVERSE REACTIONS ASPIRIN 81 MG PO DAILY CONTINUE REHAB
[2016-06-17] MEDS: CYCLOBENZAPRINE HCL 10 MG TABLET (FP) PO PRN (21:14)
[2016-06-17] MEDS: risperiDONE 1 MG TABLET (FP) PO SCH (21:14)
[2016-06-17] MEDS: THIAMINE HCL 100 MG TABLET (FP) PO SCH (21:14)
[2016-06-17] MEDS: traZODone HCL 50 MG TABLET (FP) PO SCH (21:14)
[2016-06-17] MEDS: ATORVASTATIN CA 10 MG TABLET (FP) PO SCH (21:15)
[2016-06-17] MEDS: BENZTROPINE MESYLATE 1 MG TABLET (FP) PO SCH (21:15)
[2016-06-18] MEDS: metFORMIN HCL 500 MG TABLET (FP) PO SCH ×2 (06:35→16:43)
[2016-06-18] MEDS ORDERED: PT OWN MED DRAWER 7, Y5N ONE ×2 (09:02→10:48)
[2016-06-18] MEDS: ASPIRIN 81 MG CHEWABLE TABLETS PO SCH (10:33)
[2016-06-18] MEDS: hydrOXYzine PAMOATE 50 MG CAPSULE (FP) PO PRN (10:33)
[2016-06-18] MEDS: NICOTINE POLACRILEX 2 MG GUM BUC PRN ×3 (10:33→17:40)
[2016-06-18] MEDS: amLODIPine BESYLATE 5 MG TABLET (FP) PO SCH (10:33)
[2016-06-18] MEDS: PRENATAL VITAMINS W/ FOLIC ACID TABLET (FP) PO SCH (10:33)
[2016-06-18] MEDS: ALBUTEROL SO4 6.7 GM HFA INHALER IH PRN (10:34)
[2016-06-18] MEDS: THIAMINE HCL 100 MG TABLET (FP) PO SCH (22:51)
[2016-06-18] MEDS: risperiDONE 1 MG TABLET (FP) PO SCH (22:51)
[2016-06-18] MEDS: traZODone HCL 50 MG TABLET (FP) PO SCH (22:51)
[2016-06-18] MEDS: BENZTROPINE MESYLATE 1 MG TABLET (FP) PO SCH (22:51)
[2016-06-18] MEDS: ATORVASTATIN CA 10 MG TABLET (FP) PO SCH (22:51)
[2016-06-19] MEDS: metFORMIN HCL 500 MG TABLET (FP) PO SCH ×2 (07:07→16:53)
[2016-06-19] MEDS: NICOTINE POLACRILEX 2 MG GUM BUC PRN ×3 (07:10→20:00)
[2016-06-19] MEDS: amLODIPine BESYLATE 5 MG TABLET (FP) PO SCH (10:30)
[2016-06-19] MEDS: ASPIRIN 81 MG CHEWABLE TABLETS PO SCH (10:30)
[2016-06-19] MEDS: hydrOXYzine PAMOATE 50 MG CAPSULE (FP) PO PRN ×2 (10:30→21:31)
[2016-06-19] MEDS: PRENATAL VITAMINS W/ FOLIC ACID TABLET (FP) PO SCH (10:30)
[2016-06-19] MEDS: ALBUTEROL SO4 6.7 GM HFA INHALER IH PRN ×2 (10:32→17:56)
[2016-06-19] MEDS ORDERED: PT OWN MED DRAWER 7, Y5N ONE (17:55)
[2016-06-19] MEDS: THIAMINE HCL 100 MG TABLET (FP) PO SCH (21:31)
[2016-06-19] MEDS: risperiDONE 1 MG TABLET (FP) PO SCH (21:31)
[2016-06-19] MEDS: ATORVASTATIN CA 10 MG TABLET (FP) PO SCH (21:31)
[2016-06-19] MEDS: BENZTROPINE MESYLATE 1 MG TABLET (FP) PO SCH (21:31)
[2016-06-19] MEDS: traZODone HCL 50 MG TABLET (FP) PO SCH (21:31)
[2016-06-19] MEDS: CYCLOBENZAPRINE HCL 10 MG TABLET (FP) PO PRN (21:32)
[2016-06-20] MEDS: metFORMIN HCL 500 MG TABLET (FP) PO SCH ×2 (07:17→16:55)
[2016-06-20] MEDS ORDERED: ASPIRIN 81 MG CHEWABLE TABLETS ONE (09:13)
[2016-06-20] MEDS: ASPIRIN 81 MG CHEWABLE TABLETS PO SCH (10:47)
[2016-06-20] MEDS: amLODIPine BESYLATE 5 MG TABLET (FP) PO SCH (10:47)
[2016-06-20] MEDS: PRENATAL VITAMINS W/ FOLIC ACID TABLET (FP) PO SCH (10:47)
[2016-06-20] MEDS: hydrOXYzine PAMOATE 50 MG CAPSULE (FP) PO PRN ×2 (10:49→21:46)
[2016-06-20] MEDS: risperiDONE 1 MG TABLET (FP) PO SCH (21:46)
[2016-06-20] MEDS: traZODone HCL 50 MG TABLET (FP) PO SCH (21:46)
[2016-06-20] MEDS: ATORVASTATIN CA 10 MG TABLET (FP) PO SCH (21:46)
[2016-06-20] MEDS: THIAMINE HCL 100 MG TABLET (FP) PO SCH (21:46)
[2016-06-20] MEDS: BENZTROPINE MESYLATE 1 MG TABLET (FP) PO SCH (21:46)
[2016-06-21] MEDS: metFORMIN HCL 500 MG TABLET (FP) PO SCH ×2 (06:38→17:19)
[2016-06-21] MEDS: PRENATAL VITAMINS W/ FOLIC ACID TABLET (FP) PO SCH (10:08)
[2016-06-21] MEDS: amLODIPine BESYLATE 5 MG TABLET (FP) PO SCH (10:09)
[2016-06-21] MEDS: ASPIRIN 81 MG CHEWABLE TABLETS PO SCH (10:09)
[2016-06-21] MEDS: hydrOXYzine PAMOATE 50 MG CAPSULE (FP) PO PRN ×2 (10:09→21:14)
[2016-06-21] MEDS: NICOTINE POLACRILEX 2 MG GUM BUC PRN (10:10)
[2016-06-21] MEDS: THIAMINE HCL 100 MG TABLET (FP) PO SCH (21:14)
[2016-06-21] MEDS: CYCLOBENZAPRINE HCL 10 MG TABLET (FP) PO PRN (21:14)
[2016-06-21] MEDS: traZODone HCL 50 MG TABLET (FP) PO SCH (21:14)
[2016-06-21] MEDS: risperiDONE 1 MG TABLET (FP) PO SCH (21:14)
[2016-06-21] MEDS: BENZTROPINE MESYLATE 1 MG TABLET (FP) PO SCH (21:15)
[2016-06-21] MEDS: ATORVASTATIN CA 10 MG TABLET (FP) PO SCH (21:15)
[2016-06-22] MEDS: metFORMIN HCL 500 MG TABLET (FP) PO SCH ×2 (07:30→16:53)
[2016-06-22] MEDS: PRENATAL VITAMINS W/ FOLIC ACID TABLET (FP) PO SCH (10:14)
[2016-06-22] MEDS: amLODIPine BESYLATE 5 MG TABLET (FP) PO SCH (10:14)
[2016-06-22] MEDS: hydrOXYzine PAMOATE 50 MG CAPSULE (FP) PO PRN ×2 (10:14→21:05)
[2016-06-22] MEDS: ASPIRIN 81 MG CHEWABLE TABLETS PO SCH (10:14)
[2016-06-22] MEDS: ALBUTEROL SO4 6.7 GM HFA INHALER IH PRN (10:16)
[2016-06-22] MEDS: NICOTINE POLACRILEX 2 MG GUM BUC PRN ×3 (10:16→16:53)
[2016-06-22] MEDS ORDERED: PT OWN MED DRAWER 7, Y5N ONE (14:42)
[2016-06-22] MEDS: risperiDONE 1 MG TABLET (FP) PO SCH (21:05)
[2016-06-22] MEDS: traZODone HCL 50 MG TABLET (FP) PO SCH (21:05)
[2016-06-22] MEDS: THIAMINE HCL 100 MG TABLET (FP) PO SCH (21:05)
[2016-06-22] MEDS: CYCLOBENZAPRINE HCL 10 MG TABLET (FP) PO PRN (21:05)
[2016-06-22] MEDS: ATORVASTATIN CA 10 MG TABLET (FP) PO SCH (21:06)
[2016-06-22] MEDS: BENZTROPINE MESYLATE 1 MG TABLET (FP) PO SCH (21:06)
[2016-06-23] MEDS: metFORMIN HCL 500 MG TABLET (FP) PO SCH ×2 (07:05→17:05)
[2016-06-23] MEDS: amLODIPine BESYLATE 5 MG TABLET (FP) PO SCH (10:26)
[2016-06-23] MEDS: ASPIRIN 81 MG CHEWABLE TABLETS PO SCH (10:26)
[2016-06-23] MEDS: PRENATAL VITAMINS W/ FOLIC ACID TABLET (FP) PO SCH (10:26)
[2016-06-23] MEDS: hydrOXYzine PAMOATE 50 MG CAPSULE (FP) PO PRN ×2 (10:27→21:26)
--- NOTE | 2016-06-23 10:51 | PN ---
Psychiatric Progress Note Vital Signs: Vital Signs Period Temp Pulse Resp BP Sys/Loredo Pulse Ox Last 24 Hr 98.1 F 74 18-18 116/71 Date of Session: 06/23/16 Chief Complaint:: I want help to stop drinking HPI: Patient addressing Alcohol Dependence comorbid with Nicotine Dependence and Schizoaffective Disorder ROS: Asthma/COPD, Arthritis, HTN, Hyperlipidemia, Obesity Current Medications: Active Medications Generic Name Dose Route Start Last Admin Trade Name Freq PRN Reason Stop Dose Admin Acetaminophen 650 mg 06/07/16 16:19 06/11/16 12:36 Tylenol - PO 650 mg Q4H PRN Administration FEVER OR PAIN Al Hydroxide/Mg Hydroxide 30 ml 06/07/16 16:19 Mylanta Oral Suspension - PO Q6H PRN DYSPEPSIA Albuterol Sulfate 2 puff 06/07/16 16:21 06/22/16 10:16 Ventolin Hfa Inhaler - IH 2 puff Q4H PRN Administration ASTHMA Amlodipine Besylate 5 mg 06/08/16 10:00 06/23/16 10:26 Norvasc - PO 5 mg DAILY RAI Administration Aspirin 81 mg 06/18/16 10:00 06/23/16 10:26 Asa - PO 81 mg DAILY RAI Administration Atorvastatin Calcium 10 mg 06/07/16 22:00 06/22/16 21:06 Lipitor - PO 10 mg HS RAI Administration Benztropine Mesylate 1 mg 06/07/16 22:00 06/22/16 21:06 Cogentin - PO 1 mg HS RAI Administration Cyclobenzaprine HCl 10 mg 06/16/16 14:03 06/22/16 21:05 Flexeril - PO 10 mg TID PRN Administration MUSCLE SPASMS Diphenhydramine HCl 50 mg 06/07/16 16:19 Benadryl - PO HSMR1 PRN FOR ITCHING Eucalyptus/Menthol/Phenol/Sorbitol 1 each 06/07/16 16:19 Cepastat Lozenge - MM Q4H PRN SORE THROAT Guaifenesin 10 ml 06/07/16 16:19 Robitussin Dm - PO Q6H PRN COUGH Hydroxyzine Pamoate 50 mg 06/07/16 16:19 06/23/16 10:27 Vistaril - PO 50 mg Q4H PRN Administration AGITATION Loperamide HCl 4 mg 06/07/16 16:19 Imodium - PO Q6H PRN DIARRHEA Magnesium Hydroxide 30 ml 06/07/16 16:19 06/15/16 12:28 Milk Of Magnesia - PO 30 ml DAILY PRN Administration CONSTIPATION Metformin HCl 500 mg 06/07/16 16:45 06/23/16 07:05 Glucophage - PO 500 mg BIDAC RAI Administration Nicotine 14 mg 06/07/16 16:19 Nicoderm Patch - TD DAILY PRN WITHDRAWAL(CONT SUBST) Nicotine Polacrilex 2 mg 06/07/16 16:19 06/22/16 16:53 Nicorette Gum - BUC 2 mg Q2H PRN Administration NICOTINE REPLACEMENT RX Multivit/Folic Acid/Iron 1 tab 06/08/16 10:00 06/23/16 10:26 Vitamins (Sjr) - PO Not Given DAILY RAI Pseudoephedrine/Triprolidine 1 combo 06/07/16 16:19 Actifed - PO TID PRN NASAL CONGESTION Risperidone 1 mg 06/07/16 22:00 06/22/16 21:05 Risperdal - PO 1 mg HS RAI Administration Thiamine HCl 100 mg 06/07/16 22:00 06/22/16 21:05 Vitamin B1 - PO 100 mg HS RAI Administration Trazodone HCl 50 mg 06/07/16 22:00 06/22/16 21:05 Desyrel - PO 50 mg HS RAI Administration Medication(s) Change(s): Start Campral 666 mg po TID Current Side Effect: No Lab tests ordered: Yes (BUN 18; Creat 0.7) Lab tests reviewed: Yes Provider note:: Patient in his quest for help to stop drinking was presented with the option of 2 medications that help with craving for Alcohol: Acamprosate (Campral) & Naltrexone. Benefits vs Risks of both medications were presented and discussed with patient and he has decided to take Campral after analysis of Risk/Benefit Total face to face time:: 25 Mental Status Exam - Mental Status Exam Alert and Oriented to: Time, Place, Person Cognitive Function: Fair Patient Appearance: Well Groomed Mood: Hopeful, Euthymic Affect: Appropriate Patient Behavior: Cooperative Speech Pattern: Clear Voice Loudness: Normal Thought Process: Intact Thought Disorder: Not Present Hallucinations: Denies Suicidal Ideation: Denies Homicidal Ideation: Denies Insight/Judgement: Fair Sleep: Fair Appetite: Good Muscle strength/Tone: Normal Gait/Station: Normal Psychiatric Treatment Plan - Problem List (1) Alcohol dependence with uncomplicated withdrawal Current Visit: No (2) Nicotine dependence Current Visit: No (3) Schizoaffective disorder, bipolar type Current Visit: No (4) Arthritis Current Visit: No (5) Asthma Current Visit: No Qualifiers: Asthma severity: mild persistent Asthma complication type: with status asthmaticus Qualified Code(s): J45.32 - Mild persistent asthma with status asthmaticus (6) COPD (chronic obstructive pulmonary disease) Current Visit: No Qualifiers: COPD type: emphysema Emphysema type: unspecified Qualified Code( s): J43.9 - Emphysema, unspecified (7) Diabetes mellitus type II, non insulin dependent Current Visit: No (8) Hypercholesteremia Current Visit: No (9) Hypertension Current Visit: No Qualifiers: Hypertension type: essential hypertension Qualified Code(s): I10 - Essential (primary) hypertension (10) Obesity Current Visit: No Initial treatment plan: 1) Start Campral 666 mg po TID. 2) Monitor progress
[2016-06-23] MEDS: ACAMPROSATE CALCIUM 333 MG TABLET.DR PO SCH ×2 (13:17→21:27)
[2016-06-23] MEDS ORDERED: PT OWN MED DRAWER 7, Y5N ONE ×2 (15:38→15:53)
[2016-06-23] MEDS: THIAMINE HCL 100 MG TABLET (FP) PO SCH (21:26)
[2016-06-23] MEDS: ATORVASTATIN CA 10 MG TABLET (FP) PO SCH (21:27)
[2016-06-23] MEDS: traZODone HCL 50 MG TABLET (FP) PO SCH (21:27)
[2016-06-23] MEDS: risperiDONE 1 MG TABLET (FP) PO SCH (21:27)
[2016-06-23] MEDS: BENZTROPINE MESYLATE 1 MG TABLET (FP) PO SCH (21:27)
[2016-06-24] MEDS: ACAMPROSATE CALCIUM 333 MG TABLET.DR PO SCH ×3 (06:27→21:27)
[2016-06-24] MEDS: metFORMIN HCL 500 MG TABLET (FP) PO SCH ×2 (07:08→16:51)
[2016-06-24] MEDS: amLODIPine BESYLATE 5 MG TABLET (FP) PO SCH (10:18)
[2016-06-24] MEDS: ASPIRIN 81 MG CHEWABLE TABLETS PO SCH (10:18)
[2016-06-24] MEDS: PRENATAL VITAMINS W/ FOLIC ACID TABLET (FP) PO SCH (10:18)
[2016-06-24] MEDS: hydrOXYzine PAMOATE 50 MG CAPSULE (FP) PO PRN ×2 (10:18→21:27)
[2016-06-24] MEDS: ALBUTEROL SO4 6.7 GM HFA INHALER IH PRN (10:19)
[2016-06-24] MEDS: NICOTINE POLACRILEX 2 MG GUM BUC PRN (10:19)
[2016-06-24] MEDS ORDERED: PT OWN MED DRAWER 7, Y5N ONE ×2 (15:21→20:28)
[2016-06-24] MEDS: CYCLOBENZAPRINE HCL 10 MG TABLET (FP) PO PRN (21:27)
[2016-06-24] MEDS: THIAMINE HCL 100 MG TABLET (FP) PO SCH (21:27)
[2016-06-24] MEDS: risperiDONE 1 MG TABLET (FP) PO SCH (21:27)
[2016-06-24] MEDS: traZODone HCL 50 MG TABLET (FP) PO SCH (21:27)
[2016-06-24] MEDS: BENZTROPINE MESYLATE 1 MG TABLET (FP) PO SCH (21:27)
[2016-06-24] MEDS: ATORVASTATIN CA 10 MG TABLET (FP) PO SCH (21:29)
[2016-06-25] MEDS: ACAMPROSATE CALCIUM 333 MG TABLET.DR PO SCH ×3 (06:20→21:13)
[2016-06-25] MEDS: metFORMIN HCL 500 MG TABLET (FP) PO SCH ×2 (07:40→17:30)
[2016-06-25] MEDS: NICOTINE POLACRILEX 2 MG GUM BUC PRN ×2 (07:48→10:26)
[2016-06-25] MEDS: ASPIRIN 81 MG CHEWABLE TABLETS PO SCH (10:25)
[2016-06-25] MEDS: PRENATAL VITAMINS W/ FOLIC ACID TABLET (FP) PO SCH (10:25)
[2016-06-25] MEDS: amLODIPine BESYLATE 5 MG TABLET (FP) PO SCH (10:25)
[2016-06-25] MEDS: hydrOXYzine PAMOATE 50 MG CAPSULE (FP) PO PRN ×2 (10:25→21:14)
[2016-06-25] MEDS: ALBUTEROL SO4 6.7 GM HFA INHALER IH PRN ×2 (10:26→21:15)
[2016-06-25] MEDS: risperiDONE 1 MG TABLET (FP) PO SCH (21:13)
[2016-06-25] MEDS: THIAMINE HCL 100 MG TABLET (FP) PO SCH (21:13)
[2016-06-25] MEDS: BENZTROPINE MESYLATE 1 MG TABLET (FP) PO SCH (21:13)
[2016-06-25] MEDS: traZODone HCL 50 MG TABLET (FP) PO SCH (21:13)
[2016-06-25] MEDS: ATORVASTATIN CA 10 MG TABLET (FP) PO SCH (21:13)
[2016-06-25] MEDS: CYCLOBENZAPRINE HCL 10 MG TABLET (FP) PO PRN (21:14)
[2016-06-25] MEDS ORDERED: PT OWN MED DRAWER 7, Y5N ONE (21:15)
[2016-06-26] MEDS: ACAMPROSATE CALCIUM 333 MG TABLET.DR PO SCH ×3 (06:42→21:24)
[2016-06-26] MEDS: metFORMIN HCL 500 MG TABLET (FP) PO SCH ×2 (06:42→16:50)
[2016-06-26] MEDS ORDERED: PT OWN MED DRAWER 7, Y5N ONE (09:18)
[2016-06-26] MEDS: ASPIRIN 81 MG CHEWABLE TABLETS PO SCH (10:33)
[2016-06-26] MEDS: PRENATAL VITAMINS W/ FOLIC ACID TABLET (FP) PO SCH (10:33)
[2016-06-26] MEDS: NICOTINE POLACRILEX 2 MG GUM BUC PRN (10:33)
[2016-06-26] MEDS: amLODIPine BESYLATE 5 MG TABLET (FP) PO SCH (10:33)
[2016-06-26] MEDS: hydrOXYzine PAMOATE 50 MG CAPSULE (FP) PO PRN ×2 (10:34→21:24)
[2016-06-26] MEDS: THIAMINE HCL 100 MG TABLET (FP) PO SCH (21:23)
[2016-06-26] MEDS: ATORVASTATIN CA 10 MG TABLET (FP) PO SCH (21:24)
[2016-06-26] MEDS: BENZTROPINE MESYLATE 1 MG TABLET (FP) PO SCH (21:24)
[2016-06-26] MEDS: risperiDONE 1 MG TABLET (FP) PO SCH (21:24)
[2016-06-26] MEDS: CYCLOBENZAPRINE HCL 10 MG TABLET (FP) PO PRN (21:24)
[2016-06-26] MEDS: traZODone HCL 50 MG TABLET (FP) PO SCH (21:25)
[2016-06-27] MEDS: metFORMIN HCL 500 MG TABLET (FP) PO SCH ×2 (06:17→16:43)
[2016-06-27] MEDS: ACAMPROSATE CALCIUM 333 MG TABLET.DR PO SCH ×3 (06:17→21:13)
[2016-06-27] MEDS: hydrOXYzine PAMOATE 50 MG CAPSULE (FP) PO PRN ×2 (10:30→21:16)
[2016-06-27] MEDS: amLODIPine BESYLATE 5 MG TABLET (FP) PO SCH (10:30)
[2016-06-27] MEDS: ASPIRIN 81 MG CHEWABLE TABLETS PO SCH (10:30)
[2016-06-27] MEDS: PRENATAL VITAMINS W/ FOLIC ACID TABLET (FP) PO SCH (10:31)
[2016-06-27] MEDS: ALBUTEROL SO4 6.7 GM HFA INHALER IH PRN ×2 (11:38→21:15)
[2016-06-27] MEDS ORDERED: PT OWN MED DRAWER 7, Y5N ONE ×2 (11:39→21:16)
[2016-06-27] MEDS: THIAMINE HCL 100 MG TABLET (FP) PO SCH (21:13)
[2016-06-27] MEDS: CYCLOBENZAPRINE HCL 10 MG TABLET (FP) PO PRN (21:14)
[2016-06-27] MEDS: risperiDONE 1 MG TABLET (FP) PO SCH (21:14)
[2016-06-27] MEDS: traZODone HCL 50 MG TABLET (FP) PO SCH (21:14)
[2016-06-27] MEDS: ATORVASTATIN CA 10 MG TABLET (FP) PO SCH (21:15)
[2016-06-27] MEDS: BENZTROPINE MESYLATE 1 MG TABLET (FP) PO SCH (21:15)
[2016-06-28] MEDS: ACAMPROSATE CALCIUM 333 MG TABLET.DR PO SCH (06:11)
[2016-06-28] MEDS: metFORMIN HCL 500 MG TABLET (FP) PO SCH (06:12)
--- NOTE | 2016-06-28 06:41 | PN ---
Psychiatric Progress Note Vital Signs: Vital Signs Period Temp Pulse Resp BP Sys/Loredo Pulse Ox Last 24 Hr 98.2 F 77-84 18-18 137-144/69-72 Date of Session: 06/28/16 Chief Complaint:: Psychiatrist Discharge Note HPI: Patient addressing Alcohol Dependence comorbid with Nicotine Dependence and Schizoaffective Disorder ROS: HTN, Hyperlipidemia, type 2 DM, Arthritis, Asthma/COPD, Obesity were medically managed Current Medications: Active Medications Generic Name Dose Route Start Last Admin Trade Name Freq PRN Reason Stop Dose Admin Acamprosate 666 mg 06/23/16 14:00 06/28/16 06:11 Campral - PO 666 mg TID RAI Administration Acetaminophen 650 mg 06/07/16 16:19 06/11/16 12:36 Tylenol - PO 650 mg Q4H PRN Administration FEVER OR PAIN Al Hydroxide/Mg Hydroxide 30 ml 06/07/16 16:19 Mylanta Oral Suspension - PO Q6H PRN DYSPEPSIA Albuterol Sulfate 2 puff 06/07/16 16:21 06/27/16 21:15 Ventolin Hfa Inhaler - IH 2 puff Q4H PRN Administration ASTHMA Amlodipine Besylate 5 mg 06/08/16 10:00 06/27/16 10:30 Norvasc - PO 5 mg DAILY RAI Administration Aspirin 81 mg 06/18/16 10:00 06/27/16 10:30 Asa - PO 81 mg DAILY RAI Administration Atorvastatin Calcium 10 mg 06/07/16 22:00 06/27/16 21:15 Lipitor - PO 10 mg HS RAI Administration Benztropine Mesylate 1 mg 06/07/16 22:00 06/27/16 21:15 Cogentin - PO 1 mg HS RAI Administration Cyclobenzaprine HCl 10 mg 06/16/16 14:03 06/27/16 21:14 Flexeril - PO 10 mg TID PRN Administration MUSCLE SPASMS Diphenhydramine HCl 50 mg 06/07/16 16:19 Benadryl - PO HSMR1 PRN FOR ITCHING Eucalyptus/Menthol/Phenol/Sorbitol 1 each 06/07/16 16:19 Cepastat Lozenge - MM Q4H PRN SORE THROAT Guaifenesin 10 ml 06/07/16 16:19 Robitussin Dm - PO Q6H PRN COUGH Hydroxyzine Pamoate 50 mg 06/07/16 16:19 06/27/16 21:16 Vistaril - PO 50 mg Q4H PRN Administration AGITATION Loperamide HCl 4 mg 06/07/16 16:19 Imodium - PO Q6H PRN DIARRHEA Magnesium Hydroxide 30 ml 06/07/16 16:19 06/15/16 12:28 Milk Of Magnesia - PO 30 ml DAILY PRN Administration CONSTIPATION Metformin HCl 500 mg 06/07/16 16:45 06/28/16 06:12 Glucophage - PO 500 mg BIDAC RAI Administration Nicotine 14 mg 06/07/16 16:19 Nicoderm Patch - TD DAILY PRN WITHDRAWAL(CONT SUBST) Nicotine Polacrilex 2 mg 06/07/16 16:19 06/26/16 10:33 Nicorette Gum - BUC 2 mg Q2H PRN Administration NICOTINE REPLACEMENT RX Multivit/Folic Acid/Iron 1 tab 06/08/16 10:00 06/27/16 10:31 Vitamins (Sjr) - PO Not Given DAILY RAI Pseudoephedrine/Triprolidine 1 combo 06/07/16 16:19 Actifed - PO TID PRN NASAL CONGESTION Risperidone 1 mg 06/07/16 22:00 06/27/16 21:14 Risperdal - PO 1 mg HS RAI Administration Thiamine HCl 100 mg 06/07/16 22:00 06/27/16 21:13 Vitamin B1 - PO 100 mg HS RAI Administration Trazodone HCl 50 mg 06/07/16 22:00 06/27/16 21:14 Desyrel - PO 50 mg HS RAI Administration Current Side Effect: No Lab tests ordered: Yes Lab tests reviewed: Yes Provider note:: Patient has completed this program today. 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 He responded well to Risperdal 1 mg po HS, Cogentin 1 mg po HS, Trazadone 50 mg po HS and Campral 666 mg po TID. Scripts for 30 days supply of these medications are electronically transmitted to [facility] at [address] [place] [address]. He is stable for discharge today Total face to face time:: 35 Mental Status Exam - Mental Status Exam Alert and Oriented to: Time, Place, Person Cognitive Function: Fair Patient Appearance: Well Groomed Mood: Hopeful, Euthymic Affect: Appropriate Patient Behavior: Cooperative Speech Pattern: Clear Voice Loudness: Normal Thought Process: Intact Thought Disorder: Not Present Hallucinations: Denies Suicidal Ideation: Denies Homicidal Ideation: Denies Insight/Judgement: Fair Sleep: Fair Appetite: Good Muscle strength/Tone: Normal Gait/Station: Normal Psychiatric Treatment Plan - Problem List (1) Alcohol dependence with uncomplicated withdrawal Current Visit: No (2) Nicotine dependence Current Visit: No (3) Schizoaffective disorder, bipolar type Current Visit: No (4) Arthritis Current Visit: No (5) Asthma Current Visit: No Qualifiers: Asthma severity: mild persistent Asthma complication type: with status asthmaticus Qualified Code(s): J45.32 - Mild persistent asthma with status asthmaticus (6) COPD (chronic obstructive pulmonary disease) Current Visit: No Qualifiers: COPD type: emphysema Emphysema type: unspecified Qualified Code( s): J43.9 - Emphysema, unspecified (7) Diabetes mellitus type II, non insulin dependent Current Visit: No (8) Hypercholesteremia Current Visit: No (9) Hypertension Current Visit: No Qualifiers: Hypertension type: essential hypertension Qualified Code(s): I10 - Essential (primary) hypertension (10) Obesity Current Visit: No Initial treatment plan: Patient is discharged today and referred to [facility] for snf residential treatment
[2016-06-28 07:33] VITALS: BP 147/77; PULSE 85; TEMP 97.3
[2016-06-28] MEDS: amLODIPine BESYLATE 5 MG TABLET (FP) PO SCH (09:37)
[2016-06-28] MEDS: ASPIRIN 81 MG CHEWABLE TABLETS PO SCH (09:37)
[2016-06-28] MEDS: hydrOXYzine PAMOATE 50 MG CAPSULE (FP) PO PRN (09:37)
[2016-06-28] MEDS: PRENATAL VITAMINS W/ FOLIC ACID TABLET (FP) PO SCH (09:37)
[2016-06-28] MEDS ORDERED: PT OWN MED DRAWER 7, Y5N ONE (09:38)
== END 2016-06-28 09:55 | disposition home or self-care (01) | DRG 897 ==
LOC: YASAS 13:51 → Y3W 13:52
PROVIDERS: ADMIT Psychiatry & Neurology Psychiatry; ATTEND Psychiatry & Neurology Psychiatry
PROC: HZ2ZZZZ Detoxification Services for Substance Abuse Treatment (ICD-10-PCS; principal; 2016-06-28)
DX: F10.230 Alcohol dependence with withdrawal, uncomplicated (principal); J45.32 Mild persistent asthma with status asthmaticus; F17.210 Nicotine dependence, cigarettes, uncomplicated; F25.0 Schizoaffective disorder, bipolar type; J43.9 Emphysema, unspecified; E11.9 Type 2 diabetes mellitus without complications; Z79.84 Long term (current) use of oral hypoglycemic drugs; E78.00 Pure hypercholesterolemia, unspecified; I10 Essential (primary) hypertension; E66.09 Other obesity due to excess calories; Z68.33 Body mass index [BMI] 33.0-33.9, adult; M12.9 Arthropathy, unspecified
CPT/HCPCS: 36415; 87389; J2794

== ENCOUNTER 2016-10-19 16:35 | Inpatient (IN) | payer MEDICARE, OTHER ==
[2016-10-19 17:44] VITALS: BMI 35.4
--- NOTE | 2016-10-19 18:59 | HP ---
Admission [facility] Chief Complaint: i need help for rehab from alcohol,crack Allergies/Adverse Reactions: Allergies Allergy/AdvReac Type Severity Reaction Status Date / Time morphine Allergy Intermediate Hives Verified 10/19/16 18:02 tomato [Tomato] Allergy Intermediate RASH/ITCHIN Verified 10/19/16 18:02 G milk Allergy Mild Hives Verified 10/19/16 18:02 History of Present Illness: this 56 years old male with alcohol,cocaine dependence,seeking rehab,last treatment [facility] from 10/12/16 to 10/17/16 asthma,copd,dm,obesity,arthritis of right knee,ambulation with cane depression ptsd longest period of sobriety Exam Limitations: No Limitations - Ebola screening Have you traveled outside of the country in the last 21 days: No Have you had contact with anyone from an Ebola affected area: No Have you been sick,other than usual withdrawal symptoms: No Do you have a fever: No - Review of Systems Constitutional: No Symptoms Reported EENT: reports: No Symptoms Reported Respiratory: reports: No Symptoms reported, Other (asthma,copd) Cardiac: reports: No Symptoms Reported GI: reports: No Symptoms Reported : reports: No Symptoms Reported Musculoskeletal: reports: No Symptoms Reported Integumentary: reports: No Symptoms Reported Neuro: reports: No Symptoms reported Endocrine: reports: No Symptoms Reported Hematology: reports: No Symptoms Reported Psychiatric: reports: Judgement Intact, Mood/Affect Appropiate, Orientated x3, Depressed (ptsd) Patient History - Patient Medical History Hx Anemia: No Hx Asthma: Yes (on albuterol inhaler,symbicort) Hx Chronic Obstructive Pulmonary Disease (COPD): Yes Hx Cancer: No Hx Cardiac Disorders: No Hx Congestive Heart Failure: No Hx Hypertension: Yes (on med) Hx Hypercholesterolemia: Yes (on med) Hx Pacemaker: No HX Cerebrovascular Accident: No Hx Seizures: No Hx Dementia: No Hx Diabetes: Yes (on metformin) Hx Gastrointestinal Disorders: No Hx Liver Disease: No Hx Genitourinary Disorders: No Hx Sexually Transmitted Disorders: Yes (completed tx for syphilis last 2013) Hx Renal Disease (ESRD): No Hx Thyroid Disease: Yes (no med) Hx Human Immunodeficiency Virus (HIV): No (last 2016 negative) Hx Hepatitis C: No Hx Depression: Yes (ptsd) Hx Suicide Attempt: Yes (drinking bleach age 20) Hx Bipolar Disorder: No Hx Schizophrenia: No Other Medical History: no sucidal,no homicidal - Patient Surgical History Past Surgical History: No Hx Neurologic Surgery: No Hx Cataract Extraction: No Hx Cardiac Surgery: No Hx Lung Surgery: No Hx Breast Surgery: No Hx Breast Biopsy: No Hx Abdominal Surgery: No Hx Appendectomy: No Hx Cholecystectomy: No Hx Genitourinary Surgery: No Hx Section: No Hx Orthopedic Surgery: No Anesthesia Reaction: No - PPD History Previous Implant?: Yes Documented Results: Negative w/proof Date: 02/13/16 Results: 0 mm PPD to be Administered?: No - Smoking Cessation Smoking history: Current every day smoker Have you smoked in the past 12 months: Yes Aproximately how many cigarettes per day: 10 Cigars Per Day: 0 Hx Chewing Tobacco Use: No Initiated information on smoking cessation: Yes 'Breaking Loose' booklet given: 10/19/16 - Substance & Tx. History Hx Alcohol Use: Yes Hx Substance Use: Yes Substance Use Type: Alcohol, Cocaine Hx Substance Use Treatment: Yes ([facility] 10/12/16 to 10/17/16) - Substances Abused Alcohol Route: Oral Frequency: Daily Amount used: 1pint of liquor Age of first use: 13 Date of Last Use: 11/12/16 Crack Route: Smoking Frequency: Daily Amount used: 50 to 100$ Age of first use: 19 Date of Last Use: 11/12/16 Family Disease History - Family Disease History Family Disease History: Heart Disease: Father (CAD,), Mother (HTN,asthma ,) Admission Physical Exam S - Vital Signs Vital Signs: Vital Signs - 24 hr 10/19/16 17:37 Temperature 95.9 F L Pulse Rate 90 Respiratory 18 Rate Blood Pressure 137/78 - Physical General Appearance: Yes: Within Normal Limits HEENTM: Yes: Within Normal Limits, Normal ENT Inspection, Pharynx Normal Respiratory: Yes: Lungs Clear, Normal Breath Sounds, No Respiratory Distress Neck: Yes: Within Normal Limits Breast: Yes: Within Normal Limits Cardiology: Yes: Within Normal Limits, Regular Rhythm, Regular Rate, S1, S2 Abdominal: Yes: Within Normal Limits, Normal Bowel Sounds, Non Tender, Flat, Soft Genitourinary: Yes: Within Normal Limits Back: Yes: Within Normal Limits Musculoskeletal: Yes: Within Normal Limits, full range of Motion Extremities: Yes: Within Normal Limits, Normal Capillary Refill, Normal Inspection, Normal Range of Motion, Other (arthritis of right knee) Neurological: Yes: 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 II-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 NML intact, Fully Oriented, Alert, Motor Strength 5/5 Integumentary: Yes: Within Normal Limits Lymphatic: Yes: Within Normal Limits - Diagnostic (1) Alcohol dependence Current Visit: Yes Status: Acute (2) Arthritis Current Visit: No Status: Chronic (3) Asthma Current Visit: No Status: Chronic Qualifiers: Asthma severity: mild persistent Asthma complication type: with status asthmaticus Qualified Code(s): J45.32 - Mild persistent asthma with status asthmaticus (4) COPD (chronic obstructive pulmonary disease) Current Visit: No Status: Chronic Qualifiers: COPD type: emphysema Emphysema type: unspecified Qualified Code( s): J43.9 - Emphysema, unspecified (5) Cocaine dependence Current Visit: No Status: Chronic (6) Diabetes mellitus type II, non insulin dependent Current Visit: No Status: Chronic (7) Hypercholesteremia Current Visit: No Status: Chronic (8) Hypertension Current Visit: No Status: Chronic Qualifiers: Hypertension type: essential hypertension Qualified Code(s): I10 - Essential (primary) hypertension (9) Nicotine dependence Current Visit: No Status: Chronic (10) Obesity Current Visit: No Status: Chronic (11) Schizoaffective disorder, bipolar type Current Visit: No Status: Chronic (12) Insomnia Current Visit: No Status: Suspected Cleared for Admission S - Detox or Rehab Claeared for Rehab Admission: Yes [facility] Breath Alcohol Content Breath Alcohol Content: 0.096 Urine Drug Screen - Results Drug Screen Negative: No Urine Drug Screen Results: SANIYA-Cocaine, BZO-Benzodiazepines
[2016-10-19] MEDS ORDERED: diphenhydrAMINE HCL 50 MG CAPSULE PO PRN (19:19)
[2016-10-19] MEDS ORDERED: LOPERAMIDE HCL 2 MG CAPSULE PO PRN (19:19)
[2016-10-19] MEDS ORDERED: MAGNESIUM HYDROX 2400MG/30ML ORAL SUSPENSION 30 ML CUP PO PRN (19:19)
[2016-10-19] MEDS ORDERED: MAG HYDROX/AL HYDROX/SIMETH 30 ML UNIT-DOSE CUP PO PRN (19:19)
[2016-10-19] MEDS ORDERED: guaiFENesin/D-METHORPHAN HB 10 ML UNIT-DOSE CUPS PO PRN (19:19)
[2016-10-19] MEDS ORDERED: IBUPROFEN 400 MG TABLET (FP) PO PRN (19:19)
[2016-10-19] MEDS ORDERED: MENTHOL/PHENOL 1 EACH UD MM PRN (19:19)
[2016-10-19] MEDS ORDERED: P-EPHED 60MG/TRIPROLIDI 2.5MG TABLET PO PRN (19:19)
[2016-10-19] MEDS ORDERED: MAGNESIUM CITRATE 300 ML BOTTLE PO PRN (19:19)
[2016-10-19] MEDS: ATORVASTATIN CA 10 MG TABLET (FP) PO SCH (21:56)
[2016-10-19] MEDS: THIAMINE HCL 100 MG TABLET (FP) PO SCH (21:57)
[2016-10-19] MEDS: ACETAMINOPHEN 325 MG TABLET (FP) PO PRN (21:58)
[2016-10-19] MEDS: hydrOXYzine PAMOATE 50 MG CAPSULE (FP) PO PRN (21:58)
[2016-10-19] MEDS: BUDESONIDE/FORMETEROL FUMARATE 160/4.5 mcg INHALER IH SCH ×2 (21:59→22:00)
[2016-10-19 23:27] LABS: URINE APPEARANCE CLEAR; URINE BILIRUBIN NEGATIVE (NEGATIVE); URINE BLOOD NEGATIVE (NEGATIVE); URINE COLOR COLORLESS; URINE GLUCOSE (UA) NEGATIVE (NEGATIVE); URINE KETONE NEGATIVE (NEGATIVE); URINE LEUK ESTERASE NEGATIVE (NEGATIVE); URINE NITRITE NEGATIVE (NEGATIVE); URINE PROTEIN NEGATIVE (NEGATIVE); URINE UROBILINOGEN NEGATIVE mg/dL (0.2-1.0)
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
[2016-10-20] MEDS: metFORMIN HCL 500 MG TABLET (FP) PO SCH ×2 (07:43→17:05)
[2016-10-20 10:04] LABS: ALBUMIN 3.2 g/dl (3.4-5.0); ANION GAP 6 (8-16); CO2 26 mmol/L (21-32); GLUCOSE,RANDOM 148 mg/dL (74-106)
[2016-10-20 10:08] LABS: ALK PHOS 68 U/L (45-117); BILIRUBIN,TOTAL 0.5 mg/dL (0.2-1.0); CREATININE 0.7 mg/dL (0.7-1.3); SGOT/AST 19 U/L (15-37); SGPT/ALT 22 U/L (12-78); TOT PROT 6.1 g/dl (6.4-8.2)
[2016-10-20 10:10] LABS: MCH 27.5 pg (25.7-33.7); MCHC 32.5 g/dl (32.0-35.9); MEAN CELL VOLUME 84.8 fl (80-96); MEAN PLT VOLUME 6.5 fl (7.5-11.1); PLATELET COUNT 290 K/MM3 (134-434); RDW 13.9 % (11.9-15.9); WHITE BLOOD COUNT 4.8 K/mm3 (4.0-10.0)
[2016-10-20] MEDS: amLODIPine BESYLATE 5 MG TABLET (FP) PO SCH (10:18)
[2016-10-20] MEDS: ASPIRIN 81 MG CHEWABLE TABLETS PO SCH (10:19)
[2016-10-20] MEDS: BACITRACIN 0.9 GM PACKET TP SCH ×2 (10:19→21:08)
[2016-10-20] MEDS: PRENATAL VITAMINS W/ FOLIC ACID TABLET (FP) PO SCH (10:19)
[2016-10-20] MEDS: BUDESONIDE/FORMETEROL FUMARATE 160/4.5 mcg INHALER IH SCH ×2 (10:23→21:07)
[2016-10-20] MEDS: hydrOXYzine PAMOATE 50 MG CAPSULE (FP) PO PRN ×2 (11:22→21:08)
[2016-10-20 12:27] LABS: HIV 1 & 2 AB NEGATIVE; HIV 1 AGp24 NEGATIVE
--- NOTE | 2016-10-20 12:56 | EKG ---
Test Reason : Blood Pressure : / mmHG Vent. Rate : 090 BPM Atrial Rate : 090 BPM P-R Int : 202 ms QRS Dur : 094 ms QT Int : 366 ms P-R-T Axes : 080 023 001 degrees QTc Int : 447 ms NORMAL SINUS RHYTHM SEPTAL INFARCT , AGE UNDETERMINED ABNORMAL ECG WHEN COMPARED WITH ECG OF 03-JUN-2016 21:12, SEPTAL INFARCT IS NOW PRESENT BORDERLINE CRITERIA FOR INFERIOR INFARCT ARE NO LONGER PRESENT T WAVE INVERSION MORE EVIDENT IN INFERIOR LEADS NONSPECIFIC T WAVE ABNORMALITY NOW EVIDENT IN LATERAL LEADS Confirmed by MARLON PERES, DAMARI ([id number]) on 10/20/2016 12:55:57 PM Referred By: Ramesh Mendoza Confirmed By:DAMARI MASON MD
[2016-10-20] MEDS: ALBUTEROL SO4 6.7 GM HFA INHALER IH PRN (17:30)
[2016-10-20] MEDS: risperiDONE 1 MG TABLET (FP) PO SCH (21:08)
[2016-10-20] MEDS: THIAMINE HCL 100 MG TABLET (FP) PO SCH (21:08)
[2016-10-20] MEDS: ATORVASTATIN CA 10 MG TABLET (FP) PO SCH (21:08)
[2016-10-20] MEDS: BENZTROPINE MESYLATE 1 MG TABLET (FP) PO SCH (21:08)
[2016-10-21] MEDS: metFORMIN HCL 500 MG TABLET (FP) PO SCH ×2 (06:42→16:29)
[2016-10-21] MEDS: BACITRACIN 0.9 GM PACKET TP SCH ×2 (10:13→21:50)
[2016-10-21] MEDS: PRENATAL VITAMINS W/ FOLIC ACID TABLET (FP) PO SCH (10:13)
[2016-10-21] MEDS: amLODIPine BESYLATE 5 MG TABLET (FP) PO SCH (10:13)
[2016-10-21] MEDS: ASPIRIN 81 MG CHEWABLE TABLETS PO SCH (10:13)
[2016-10-21] MEDS: BUDESONIDE/FORMETEROL FUMARATE 160/4.5 mcg INHALER IH SCH ×2 (10:13→21:52)
[2016-10-21] MEDS: hydrOXYzine PAMOATE 50 MG CAPSULE (FP) PO PRN ×2 (10:14→21:51)
[2016-10-21] MEDS: ATORVASTATIN CA 10 MG TABLET (FP) PO SCH (21:49)
[2016-10-21] MEDS: risperiDONE 1 MG TABLET (FP) PO SCH (21:49)
[2016-10-21] MEDS: BENZTROPINE MESYLATE 1 MG TABLET (FP) PO SCH (21:49)
[2016-10-21] MEDS: METHYL SALICYLATE/MENTHOL OINT 30 GM TUBE TP SCH (21:50)
[2016-10-21] MEDS: THIAMINE HCL 100 MG TABLET (FP) PO SCH (21:52)
[2016-10-22] MEDS: metFORMIN HCL 500 MG TABLET (FP) PO SCH ×2 (06:37→16:56)
[2016-10-22] MEDS: hydrOXYzine PAMOATE 50 MG CAPSULE (FP) PO PRN ×2 (09:58→21:07)
[2016-10-22] MEDS: PRENATAL VITAMINS W/ FOLIC ACID TABLET (FP) PO SCH (09:58)
[2016-10-22] MEDS: ASPIRIN 81 MG CHEWABLE TABLETS PO SCH (09:59)
[2016-10-22] MEDS: BACITRACIN 0.9 GM PACKET TP SCH ×2 (09:59→21:05)
[2016-10-22] MEDS: BUDESONIDE/FORMETEROL FUMARATE 160/4.5 mcg INHALER IH SCH ×2 (09:59→21:04)
[2016-10-22] MEDS: amLODIPine BESYLATE 5 MG TABLET (FP) PO SCH (09:59)
[2016-10-22] MEDS: METHYL SALICYLATE/MENTHOL OINT 30 GM TUBE TP SCH ×2 (09:59→21:04)
[2016-10-22] MEDS: NICOTINE POLACRILEX 2 MG GUM BUC PRN ×2 (13:18→16:57)
--- NOTE | 2016-10-22 13:19 | PN ---
S Progress Note Note: rpr reactive 1:2,mha previously reactive,adequately treated in 2013 chronic knee pain ,ambulatory with cane,will obtain the cane for ambulatory aid
[2016-10-22] MEDS: ALBUTEROL SO4 6.7 GM HFA INHALER IH PRN (13:20)
[2016-10-22] MEDS: ATORVASTATIN CA 10 MG TABLET (FP) PO SCH (21:05)
[2016-10-22] MEDS: risperiDONE 1 MG TABLET (FP) PO SCH (21:05)
[2016-10-22] MEDS: BENZTROPINE MESYLATE 1 MG TABLET (FP) PO SCH (21:06)
[2016-10-22] MEDS: THIAMINE HCL 100 MG TABLET (FP) PO SCH (21:06)
[2016-10-23] MEDS: metFORMIN HCL 500 MG TABLET (FP) PO SCH ×2 (06:57→16:57)
[2016-10-23] MEDS: BUDESONIDE/FORMETEROL FUMARATE 160/4.5 mcg INHALER IH SCH ×2 (09:44→21:49)
[2016-10-23] MEDS: amLODIPine BESYLATE 5 MG TABLET (FP) PO SCH (09:44)
[2016-10-23] MEDS: ASPIRIN 81 MG CHEWABLE TABLETS PO SCH (09:44)
[2016-10-23] MEDS: BACITRACIN 0.9 GM PACKET TP SCH ×2 (09:44→21:47)
[2016-10-23] MEDS: hydrOXYzine PAMOATE 50 MG CAPSULE (FP) PO PRN (09:45)
[2016-10-23] MEDS: METHYL SALICYLATE/MENTHOL OINT 30 GM TUBE TP SCH ×2 (10:29→21:48)
[2016-10-23] MEDS: PRENATAL VITAMINS W/ FOLIC ACID TABLET (FP) PO SCH (10:29)
[2016-10-23] MEDS: NICOTINE POLACRILEX 2 MG GUM BUC PRN ×2 (12:43→16:59)
[2016-10-23] MEDS: BENZTROPINE MESYLATE 1 MG TABLET (FP) PO SCH (21:48)
[2016-10-23] MEDS: risperiDONE 1 MG TABLET (FP) PO SCH (21:48)
[2016-10-23] MEDS: ATORVASTATIN CA 10 MG TABLET (FP) PO SCH (21:48)
[2016-10-23] MEDS: THIAMINE HCL 100 MG TABLET (FP) PO SCH (21:49)
[2016-10-24] MEDS: NICOTINE POLACRILEX 2 MG GUM BUC PRN (06:29)
[2016-10-24] MEDS: metFORMIN HCL 500 MG TABLET (FP) PO SCH ×2 (07:23→16:57)
[2016-10-24] MEDS: ASPIRIN 81 MG CHEWABLE TABLETS PO SCH (10:05)
[2016-10-24] MEDS: BUDESONIDE/FORMETEROL FUMARATE 160/4.5 mcg INHALER IH SCH ×2 (10:05→21:24)
[2016-10-24] MEDS: PRENATAL VITAMINS W/ FOLIC ACID TABLET (FP) PO SCH (10:05)
[2016-10-24] MEDS: ALBUTEROL SO4 6.7 GM HFA INHALER IH PRN (10:05)
[2016-10-24] MEDS: amLODIPine BESYLATE 5 MG TABLET (FP) PO SCH (10:05)
[2016-10-24] MEDS: BACITRACIN 0.9 GM PACKET TP SCH ×2 (10:05→21:25)
[2016-10-24] MEDS: hydrOXYzine PAMOATE 50 MG CAPSULE (FP) PO PRN ×2 (10:06→21:25)
[2016-10-24] MEDS: METHYL SALICYLATE/MENTHOL OINT 30 GM TUBE TP SCH ×2 (10:06→21:48)
[2016-10-24] MEDS: risperiDONE 1 MG TABLET (FP) PO SCH (21:25)
[2016-10-24] MEDS: ATORVASTATIN CA 10 MG TABLET (FP) PO SCH (21:25)
[2016-10-24] MEDS: THIAMINE HCL 100 MG TABLET (FP) PO SCH (21:25)
[2016-10-24] MEDS: BENZTROPINE MESYLATE 1 MG TABLET (FP) PO SCH (21:25)
[2016-10-25] MEDS: metFORMIN HCL 500 MG TABLET (FP) PO SCH ×2 (06:19→16:53)
[2016-10-25] MEDS: ALBUTEROL SO4 6.7 GM HFA INHALER IH PRN ×2 (10:01→16:54)
[2016-10-25] MEDS: BUDESONIDE/FORMETEROL FUMARATE 160/4.5 mcg INHALER IH SCH ×2 (10:01→21:18)
[2016-10-25] MEDS: hydrOXYzine PAMOATE 50 MG CAPSULE (FP) PO PRN ×2 (10:02→21:19)
[2016-10-25] MEDS: BACITRACIN 0.9 GM PACKET TP SCH ×2 (10:02→21:18)
[2016-10-25] MEDS: ASPIRIN 81 MG CHEWABLE TABLETS PO SCH (10:02)
[2016-10-25] MEDS: amLODIPine BESYLATE 5 MG TABLET (FP) PO SCH (10:02)
[2016-10-25] MEDS: METHYL SALICYLATE/MENTHOL OINT 30 GM TUBE TP SCH ×2 (10:02→21:18)
[2016-10-25] MEDS: PRENATAL VITAMINS W/ FOLIC ACID TABLET (FP) PO SCH (10:03)
[2016-10-25] MEDS: risperiDONE 1 MG TABLET (FP) PO SCH (21:19)
[2016-10-25] MEDS: ATORVASTATIN CA 10 MG TABLET (FP) PO SCH (21:20)
[2016-10-25] MEDS: BENZTROPINE MESYLATE 1 MG TABLET (FP) PO SCH (21:20)
[2016-10-25] MEDS: THIAMINE HCL 100 MG TABLET (FP) PO SCH (21:20)
[2016-10-26] MEDS: metFORMIN HCL 500 MG TABLET (FP) PO SCH ×2 (07:01→17:08)
[2016-10-26] MEDS: hydrOXYzine PAMOATE 50 MG CAPSULE (FP) PO PRN ×2 (10:13→21:44)
[2016-10-26] MEDS: PRENATAL VITAMINS W/ FOLIC ACID TABLET (FP) PO SCH (10:14)
[2016-10-26] MEDS: BACITRACIN 0.9 GM PACKET TP SCH ×2 (10:14→21:44)
[2016-10-26] MEDS: NICOTINE POLACRILEX 2 MG GUM BUC PRN ×2 (10:14→14:17)
[2016-10-26] MEDS: amLODIPine BESYLATE 5 MG TABLET (FP) PO SCH (10:14)
[2016-10-26] MEDS: ASPIRIN 81 MG CHEWABLE TABLETS PO SCH (10:14)
[2016-10-26] MEDS: METHYL SALICYLATE/MENTHOL OINT 30 GM TUBE TP SCH ×2 (10:14→21:45)
[2016-10-26] MEDS: BUDESONIDE/FORMETEROL FUMARATE 160/4.5 mcg INHALER IH SCH ×2 (10:16→22:01)
[2016-10-26] MEDS: ALBUTEROL SO4 6.7 GM HFA INHALER IH PRN (18:05)
[2016-10-26] MEDS: ATORVASTATIN CA 10 MG TABLET (FP) PO SCH (21:43)
[2016-10-26] MEDS: risperiDONE 1 MG TABLET (FP) PO SCH (21:43)
[2016-10-26] MEDS: THIAMINE HCL 100 MG TABLET (FP) PO SCH (21:43)
[2016-10-26] MEDS: BENZTROPINE MESYLATE 1 MG TABLET (FP) PO SCH (21:43)
[2016-10-27] MEDS: metFORMIN HCL 500 MG TABLET (FP) PO SCH ×2 (06:22→16:49)
[2016-10-27] MEDS: BACITRACIN 0.9 GM PACKET TP SCH ×2 (10:16→21:46)
[2016-10-27] MEDS: BUDESONIDE/FORMETEROL FUMARATE 160/4.5 mcg INHALER IH SCH ×2 (10:16→21:47)
[2016-10-27] MEDS: PRENATAL VITAMINS W/ FOLIC ACID TABLET (FP) PO SCH (10:16)
[2016-10-27] MEDS: ASPIRIN 81 MG CHEWABLE TABLETS PO SCH (10:16)
[2016-10-27] MEDS: amLODIPine BESYLATE 5 MG TABLET (FP) PO SCH (10:16)
[2016-10-27] MEDS: hydrOXYzine PAMOATE 50 MG CAPSULE (FP) PO PRN (10:17)
[2016-10-27] MEDS: METHYL SALICYLATE/MENTHOL OINT 30 GM TUBE TP SCH ×2 (10:18→21:46)
[2016-10-27] MEDS: NICOTINE POLACRILEX 2 MG GUM BUC PRN (10:18)
[2016-10-27] MEDS: BENZTROPINE MESYLATE 1 MG TABLET (FP) PO SCH (21:46)
[2016-10-27] MEDS: ATORVASTATIN CA 10 MG TABLET (FP) PO SCH (21:47)
[2016-10-27] MEDS: risperiDONE 1 MG TABLET (FP) PO SCH (21:47)
[2016-10-27] MEDS: THIAMINE HCL 100 MG TABLET (FP) PO SCH (21:47)
[2016-10-28] MEDS: NICOTINE POLACRILEX 2 MG GUM BUC PRN (06:22)
[2016-10-28] MEDS: metFORMIN HCL 500 MG TABLET (FP) PO SCH ×2 (07:13→16:46)
[2016-10-28] MEDS: amLODIPine BESYLATE 5 MG TABLET (FP) PO SCH (10:25)
[2016-10-28] MEDS: PRENATAL VITAMINS W/ FOLIC ACID TABLET (FP) PO SCH (10:25)
[2016-10-28] MEDS: ASPIRIN 81 MG CHEWABLE TABLETS PO SCH (10:26)
[2016-10-28] MEDS: hydrOXYzine PAMOATE 50 MG CAPSULE (FP) PO PRN (10:26)
[2016-10-28] MEDS: BUDESONIDE/FORMETEROL FUMARATE 160/4.5 mcg INHALER IH SCH ×2 (10:27→21:57)
[2016-10-28] MEDS: BACITRACIN 0.9 GM PACKET TP SCH ×2 (10:27→21:57)
[2016-10-28] MEDS: METHYL SALICYLATE/MENTHOL OINT 30 GM TUBE TP SCH ×2 (10:27→21:57)
[2016-10-28] MEDS ORDERED: PT OWN MED DRAWER 7, Y5N ONE (20:24)
[2016-10-28] MEDS: ATORVASTATIN CA 10 MG TABLET (FP) PO SCH (21:57)
[2016-10-28] MEDS: BENZTROPINE MESYLATE 1 MG TABLET (FP) PO SCH (21:57)
[2016-10-28] MEDS: risperiDONE 1 MG TABLET (FP) PO SCH (21:57)
[2016-10-28] MEDS: THIAMINE HCL 100 MG TABLET (FP) PO SCH (22:08)
[2016-10-29] MEDS: NICOTINE POLACRILEX 2 MG GUM BUC PRN ×2 (05:59→10:35)
[2016-10-29] MEDS: metFORMIN HCL 500 MG TABLET (FP) PO SCH ×2 (06:58→16:54)
[2016-10-29] MEDS: PRENATAL VITAMINS W/ FOLIC ACID TABLET (FP) PO SCH (10:15)
[2016-10-29] MEDS: amLODIPine BESYLATE 5 MG TABLET (FP) PO SCH (10:15)
[2016-10-29] MEDS: BACITRACIN 0.9 GM PACKET TP SCH ×2 (10:16→21:34)
[2016-10-29] MEDS: METHYL SALICYLATE/MENTHOL OINT 30 GM TUBE TP SCH ×2 (10:16→21:34)
[2016-10-29] MEDS: ASPIRIN 81 MG CHEWABLE TABLETS PO SCH (10:16)
[2016-10-29] MEDS: hydrOXYzine PAMOATE 50 MG CAPSULE (FP) PO PRN ×2 (10:17→20:14)
[2016-10-29] MEDS: BUDESONIDE/FORMETEROL FUMARATE 160/4.5 mcg INHALER IH SCH ×2 (10:18→21:33)
[2016-10-29] MEDS: ACETAMINOPHEN 325 MG TABLET (FP) PO PRN (16:55)
[2016-10-29] MEDS: BENZTROPINE MESYLATE 1 MG TABLET (FP) PO SCH (20:15)
[2016-10-29] MEDS: risperiDONE 1 MG TABLET (FP) PO SCH (20:15)
[2016-10-29] MEDS: THIAMINE HCL 100 MG TABLET (FP) PO SCH (21:34)
[2016-10-29] MEDS: ATORVASTATIN CA 10 MG TABLET (FP) PO SCH (21:34)
[2016-10-30] MEDS: metFORMIN HCL 500 MG TABLET (FP) PO SCH ×2 (06:19→17:08)
[2016-10-30] MEDS: amLODIPine BESYLATE 5 MG TABLET (FP) PO SCH (09:54)
[2016-10-30] MEDS: BACITRACIN 0.9 GM PACKET TP SCH ×3 (09:54→21:54)
[2016-10-30] MEDS: PRENATAL VITAMINS W/ FOLIC ACID TABLET (FP) PO SCH (09:54)
[2016-10-30] MEDS: BUDESONIDE/FORMETEROL FUMARATE 160/4.5 mcg INHALER IH SCH ×3 (09:54→21:55)
[2016-10-30] MEDS: METHYL SALICYLATE/MENTHOL OINT 30 GM TUBE TP SCH ×2 (09:55→21:54)
[2016-10-30] MEDS: hydrOXYzine PAMOATE 50 MG CAPSULE (FP) PO PRN ×2 (09:56→20:17)
[2016-10-30] MEDS: ASPIRIN 81 MG CHEWABLE TABLETS PO SCH (09:56)
[2016-10-30] MEDS: NICOTINE POLACRILEX 2 MG GUM BUC PRN ×2 (09:57→14:34)
[2016-10-30] MEDS: ATORVASTATIN CA 10 MG TABLET (FP) PO SCH ×2 (20:15→21:55)
[2016-10-30] MEDS: THIAMINE HCL 100 MG TABLET (FP) PO SCH ×2 (20:15→21:55)
[2016-10-30] MEDS: BENZTROPINE MESYLATE 1 MG TABLET (FP) PO SCH (20:15)
[2016-10-30] MEDS: risperiDONE 1 MG TABLET (FP) PO SCH (20:15)
[2016-10-31] MEDS: metFORMIN HCL 500 MG TABLET (FP) PO SCH ×2 (06:22→16:34)
[2016-10-31] MEDS: NICOTINE POLACRILEX 2 MG GUM BUC PRN (06:28)
[2016-10-31] MEDS: PRENATAL VITAMINS W/ FOLIC ACID TABLET (FP) PO SCH (10:11)
[2016-10-31] MEDS: BUDESONIDE/FORMETEROL FUMARATE 160/4.5 mcg INHALER IH SCH ×2 (10:11→23:03)
[2016-10-31] MEDS: ASPIRIN 81 MG CHEWABLE TABLETS PO SCH (10:11)
[2016-10-31] MEDS: amLODIPine BESYLATE 5 MG TABLET (FP) PO SCH (10:11)
[2016-10-31] MEDS: hydrOXYzine PAMOATE 50 MG CAPSULE (FP) PO PRN ×2 (10:11→20:18)
[2016-10-31] MEDS: BACITRACIN 0.9 GM PACKET TP SCH ×2 (10:11→23:03)
[2016-10-31] MEDS: METHYL SALICYLATE/MENTHOL OINT 30 GM TUBE TP SCH ×2 (10:11→23:03)
[2016-10-31] MEDS: BENZTROPINE MESYLATE 1 MG TABLET (FP) PO SCH (20:17)
[2016-10-31] MEDS: risperiDONE 1 MG TABLET (FP) PO SCH (20:17)
[2016-10-31] MEDS: ATORVASTATIN CA 10 MG TABLET (FP) PO SCH (23:03)
[2016-10-31] MEDS: THIAMINE HCL 100 MG TABLET (FP) PO SCH (23:04)
[2016-11-01] MEDS: NICOTINE POLACRILEX 2 MG GUM BUC PRN ×2 (06:16→10:36)
[2016-11-01] MEDS: metFORMIN HCL 500 MG TABLET (FP) PO SCH ×2 (06:52→16:49)
[2016-11-01] MEDS: amLODIPine BESYLATE 5 MG TABLET (FP) PO SCH (10:29)
[2016-11-01] MEDS: PRENATAL VITAMINS W/ FOLIC ACID TABLET (FP) PO SCH (10:29)
[2016-11-01] MEDS: ASPIRIN 81 MG CHEWABLE TABLETS PO SCH (10:29)
[2016-11-01] MEDS: BACITRACIN 0.9 GM PACKET TP SCH ×2 (10:29→21:20)
[2016-11-01] MEDS: BUDESONIDE/FORMETEROL FUMARATE 160/4.5 mcg INHALER IH SCH ×2 (10:30→21:20)
[2016-11-01] MEDS: METHYL SALICYLATE/MENTHOL OINT 30 GM TUBE TP SCH ×2 (10:30→21:20)
[2016-11-01] MEDS: ACETAMINOPHEN 325 MG TABLET (FP) PO PRN ×2 (10:33→16:49)
[2016-11-01] MEDS: hydrOXYzine PAMOATE 50 MG CAPSULE (FP) PO PRN ×2 (10:33→20:08)
[2016-11-01] MEDS: risperiDONE 1 MG TABLET (FP) PO SCH (20:08)
[2016-11-01] MEDS: BENZTROPINE MESYLATE 1 MG TABLET (FP) PO SCH (20:08)
[2016-11-01] MEDS: ATORVASTATIN CA 10 MG TABLET (FP) PO SCH (21:20)
[2016-11-01] MEDS: THIAMINE HCL 100 MG TABLET (FP) PO SCH (21:20)
[2016-11-02] MEDS: NICOTINE POLACRILEX 2 MG GUM BUC PRN ×2 (06:25→10:02)
[2016-11-02] MEDS: metFORMIN HCL 500 MG TABLET (FP) PO SCH ×2 (07:18→16:31)
[2016-11-02] MEDS: BUDESONIDE/FORMETEROL FUMARATE 160/4.5 mcg INHALER IH SCH ×2 (10:01→21:42)
[2016-11-02] MEDS: hydrOXYzine PAMOATE 50 MG CAPSULE (FP) PO PRN (10:01)
[2016-11-02] MEDS: PRENATAL VITAMINS W/ FOLIC ACID TABLET (FP) PO SCH (10:01)
[2016-11-02] MEDS: amLODIPine BESYLATE 5 MG TABLET (FP) PO SCH (10:01)
[2016-11-02] MEDS: ASPIRIN 81 MG CHEWABLE TABLETS PO SCH (10:01)
[2016-11-02] MEDS: BACITRACIN 0.9 GM PACKET TP SCH ×2 (10:01→21:42)
[2016-11-02] MEDS: METHYL SALICYLATE/MENTHOL OINT 30 GM TUBE TP SCH ×2 (10:01→21:42)
[2016-11-02] MEDS: ACETAMINOPHEN 325 MG TABLET (FP) PO PRN ×2 (10:02→16:30)
[2016-11-02] MEDS: risperiDONE 1 MG TABLET (FP) PO SCH (20:06)
[2016-11-02] MEDS: BENZTROPINE MESYLATE 1 MG TABLET (FP) PO SCH (20:06)
[2016-11-02] MEDS: THIAMINE HCL 100 MG TABLET (FP) PO SCH (21:42)
[2016-11-02] MEDS: ATORVASTATIN CA 10 MG TABLET (FP) PO SCH (21:42)
[2016-11-03] MEDS: NICOTINE POLACRILEX 2 MG GUM BUC PRN ×2 (06:05→09:58)
[2016-11-03] MEDS: metFORMIN HCL 500 MG TABLET (FP) PO SCH ×2 (07:12→16:50)
[2016-11-03] MEDS: ASPIRIN 81 MG CHEWABLE TABLETS PO SCH (09:55)
[2016-11-03] MEDS: amLODIPine BESYLATE 5 MG TABLET (FP) PO SCH (09:55)
[2016-11-03] MEDS: PRENATAL VITAMINS W/ FOLIC ACID TABLET (FP) PO SCH (09:55)
[2016-11-03] MEDS: BACITRACIN 0.9 GM PACKET TP SCH ×2 (09:55→21:29)
[2016-11-03] MEDS: METHYL SALICYLATE/MENTHOL OINT 30 GM TUBE TP SCH ×2 (09:56→21:29)
[2016-11-03] MEDS: BUDESONIDE/FORMETEROL FUMARATE 160/4.5 mcg INHALER IH SCH ×2 (09:56→21:28)
[2016-11-03] MEDS: ACETAMINOPHEN 325 MG TABLET (FP) PO PRN ×2 (09:57→17:38)
[2016-11-03] MEDS: hydrOXYzine PAMOATE 50 MG CAPSULE (FP) PO PRN ×2 (09:57→20:03)
[2016-11-03] MEDS: risperiDONE 1 MG TABLET (FP) PO SCH (20:03)
[2016-11-03] MEDS: BENZTROPINE MESYLATE 1 MG TABLET (FP) PO SCH (20:03)
[2016-11-03] MEDS: THIAMINE HCL 100 MG TABLET (FP) PO SCH (21:29)
[2016-11-03] MEDS: ATORVASTATIN CA 10 MG TABLET (FP) PO SCH (21:29)
[2016-11-04] MEDS: NICOTINE POLACRILEX 2 MG GUM BUC PRN ×3 (06:30→13:05)
[2016-11-04] MEDS: metFORMIN HCL 500 MG TABLET (FP) PO SCH ×2 (07:25→16:51)
[2016-11-04] MEDS: BUDESONIDE/FORMETEROL FUMARATE 160/4.5 mcg INHALER IH SCH ×2 (10:09→22:04)
[2016-11-04] MEDS: ASPIRIN 81 MG CHEWABLE TABLETS PO SCH (10:09)
[2016-11-04] MEDS: PRENATAL VITAMINS W/ FOLIC ACID TABLET (FP) PO SCH (10:09)
[2016-11-04] MEDS: BACITRACIN 0.9 GM PACKET TP SCH ×2 (10:09→22:05)
[2016-11-04] MEDS: hydrOXYzine PAMOATE 50 MG CAPSULE (FP) PO PRN ×2 (10:09→20:11)
[2016-11-04] MEDS: ACETAMINOPHEN 325 MG TABLET (FP) PO PRN (10:10)
[2016-11-04] MEDS: amLODIPine BESYLATE 5 MG TABLET (FP) PO SCH (10:10)
[2016-11-04] MEDS: BENZTROPINE MESYLATE 1 MG TABLET (FP) PO SCH (20:09)
[2016-11-04] MEDS: risperiDONE 1 MG TABLET (FP) PO SCH (20:09)
[2016-11-04] MEDS: METHYL SALICYLATE/MENTHOL OINT 30 GM TUBE TP SCH ×2 (20:11→22:05)
[2016-11-04] MEDS: THIAMINE HCL 100 MG TABLET (FP) PO SCH (22:03)
[2016-11-04] MEDS: ATORVASTATIN CA 10 MG TABLET (FP) PO SCH (22:03)
[2016-11-05] MEDS: metFORMIN HCL 500 MG TABLET (FP) PO SCH ×2 (06:16→16:41)
[2016-11-05] MEDS: METHYL SALICYLATE/MENTHOL OINT 30 GM TUBE TP SCH ×2 (10:33→21:40)
[2016-11-05] MEDS: amLODIPine BESYLATE 5 MG TABLET (FP) PO SCH (10:36)
[2016-11-05] MEDS: BUDESONIDE/FORMETEROL FUMARATE 160/4.5 mcg INHALER IH SCH ×2 (10:36→21:40)
[2016-11-05] MEDS: ASPIRIN 81 MG CHEWABLE TABLETS PO SCH (10:36)
[2016-11-05] MEDS: PRENATAL VITAMINS W/ FOLIC ACID TABLET (FP) PO SCH (10:36)
[2016-11-05] MEDS: BACITRACIN 0.9 GM PACKET TP SCH ×2 (10:36→21:40)
[2016-11-05] MEDS: hydrOXYzine PAMOATE 50 MG CAPSULE (FP) PO PRN ×2 (10:37→20:11)
[2016-11-05] MEDS: ALBUTEROL SO4 6.7 GM HFA INHALER IH PRN (16:43)
[2016-11-05] MEDS: risperiDONE 1 MG TABLET (FP) PO SCH (20:10)
[2016-11-05] MEDS: BENZTROPINE MESYLATE 1 MG TABLET (FP) PO SCH (20:10)
[2016-11-05] MEDS: THIAMINE HCL 100 MG TABLET (FP) PO SCH (21:40)
[2016-11-05] MEDS: ATORVASTATIN CA 10 MG TABLET (FP) PO SCH (21:40)
[2016-11-06] MEDS: NICOTINE POLACRILEX 2 MG GUM BUC PRN (06:33)
[2016-11-06] MEDS: metFORMIN HCL 500 MG TABLET (FP) PO SCH ×2 (06:57→16:48)
[2016-11-06] MEDS: BACITRACIN 0.9 GM PACKET TP SCH ×2 (10:36→21:45)
[2016-11-06] MEDS: ASPIRIN 81 MG CHEWABLE TABLETS PO SCH (10:36)
[2016-11-06] MEDS: amLODIPine BESYLATE 5 MG TABLET (FP) PO SCH (10:36)
[2016-11-06] MEDS: PRENATAL VITAMINS W/ FOLIC ACID TABLET (FP) PO SCH (10:36)
[2016-11-06] MEDS: METHYL SALICYLATE/MENTHOL OINT 30 GM TUBE TP SCH ×2 (10:36→21:46)
[2016-11-06] MEDS: hydrOXYzine PAMOATE 50 MG CAPSULE (FP) PO PRN ×2 (10:37→20:10)
[2016-11-06] MEDS: ACETAMINOPHEN 325 MG TABLET (FP) PO PRN ×2 (10:37→20:10)
[2016-11-06] MEDS: BUDESONIDE/FORMETEROL FUMARATE 160/4.5 mcg INHALER IH SCH ×2 (11:05→21:46)
[2016-11-06] MEDS: risperiDONE 1 MG TABLET (FP) PO SCH (20:09)
[2016-11-06] MEDS: BENZTROPINE MESYLATE 1 MG TABLET (FP) PO SCH (20:09)
[2016-11-06] MEDS: ATORVASTATIN CA 10 MG TABLET (FP) PO SCH (21:46)
[2016-11-06] MEDS: THIAMINE HCL 100 MG TABLET (FP) PO SCH (21:46)
[2016-11-07] MEDS: NICOTINE POLACRILEX 2 MG GUM BUC PRN ×2 (06:24→10:03)
[2016-11-07] MEDS: metFORMIN HCL 500 MG TABLET (FP) PO SCH ×2 (07:11→16:43)
[2016-11-07] MEDS ORDERED: PT OWN MED DRAWER 7, Y5N ONE (08:48)
[2016-11-07] MEDS: BUDESONIDE/FORMETEROL FUMARATE 160/4.5 mcg INHALER IH SCH ×2 (10:02→21:34)
[2016-11-07] MEDS: hydrOXYzine PAMOATE 50 MG CAPSULE (FP) PO PRN ×2 (10:02→20:16)
[2016-11-07] MEDS: amLODIPine BESYLATE 5 MG TABLET (FP) PO SCH (10:02)
[2016-11-07] MEDS: PRENATAL VITAMINS W/ FOLIC ACID TABLET (FP) PO SCH (10:02)
[2016-11-07] MEDS: ASPIRIN 81 MG CHEWABLE TABLETS PO SCH (10:02)
[2016-11-07] MEDS: METHYL SALICYLATE/MENTHOL OINT 30 GM TUBE TP SCH ×2 (10:04→21:34)
[2016-11-07] MEDS: BACITRACIN 0.9 GM PACKET TP SCH ×2 (10:04→21:34)
[2016-11-07] MEDS: BENZTROPINE MESYLATE 1 MG TABLET (FP) PO SCH (20:16)
[2016-11-07] MEDS: risperiDONE 1 MG TABLET (FP) PO SCH (20:17)
[2016-11-07] MEDS: ACETAMINOPHEN 325 MG TABLET (FP) PO PRN (20:17)
[2016-11-07] MEDS: ATORVASTATIN CA 10 MG TABLET (FP) PO SCH (21:34)
[2016-11-07] MEDS: THIAMINE HCL 100 MG TABLET (FP) PO SCH (21:35)
[2016-11-08] MEDS: metFORMIN HCL 500 MG TABLET (FP) PO SCH (06:04)
[2016-11-08 07:13] VITALS: BP 146/80; PULSE 72; TEMP 98.6
[2016-11-08] MEDS ORDERED: PT OWN MED DRAWER 7, Y5N ONE (08:55)
--- NOTE | 2016-11-08 09:05 | PN ---
Psychiatric Progress Note Vital Signs: Vital Signs Period Temp Pulse Resp BP Sys/Loredo Pulse Ox Last 24 Hr 98.6 F 72-75 18-20 140-146/77-80 Date of Session: 11/08/16 Chief Complaint:: Discharge visit Current Medications: Active Medications Generic Name Dose Route Start Last Admin Trade Name Freq PRN Reason Stop Dose Admin Acetaminophen 650 mg 10/19/16 19:19 11/07/16 20:17 Tylenol - PO 650 mg Q4H PRN Administration PAIN Al Hydroxide/Mg Hydroxide 30 ml 10/19/16 19:19 Mylanta Oral Suspension - PO Q6H PRN DYSPEPSIA Albuterol Sulfate 2 puff 10/19/16 19:22 11/05/16 16:43 Ventolin Hfa Inhaler - IH 2 puff Q4H PRN Administration ASTHMA Amlodipine Besylate 5 mg 10/20/16 10:00 11/07/16 10:02 Norvasc - PO 5 mg DAILY RAI Administration Aspirin 81 mg 10/20/16 10:00 11/07/16 10:02 Asa - PO 81 mg DAILY ARI Administration Atorvastatin Calcium 10 mg 10/19/16 22:00 11/07/16 21:34 Lipitor - PO 10 mg HS RAI Administration Bacitracin 0.9 gm 10/20/16 10:00 11/07/16 21:34 Bacitracin - TP 0.9 gm BID RAI Administration Benztropine Mesylate 1 mg 10/29/16 20:00 11/07/16 20:16 Cogentin - PO 1 mg HS@2000 RAI Administration Budesonide/Formoterol Fumarate 2 puff 10/19/16 22:00 11/07/16 21:34 Symbicort 160/4.5mcg - IH 2 puff BID RAI Administration Diphenhydramine HCl 50 mg 10/19/16 19:19 Benadryl - PO HSMR1 PRN INSOMNIA Eucalyptus/Menthol/Phenol/Sorbitol 1 each 10/19/16 19:19 Cepastat Lozenge - MM Q4H PRN SORE THROAT Guaifenesin 10 ml 10/19/16 19:19 10/21/16 10:16 Robitussin Dm - PO 10 ml Q6H PRN Administration COUGH Hydroxyzine Pamoate 50 mg 10/19/16 19:19 11/07/16 20:16 Vistaril - PO 50 mg Q4H PRN Administration AGITATION Ibuprofen 400 mg 10/19/16 19:19 Motrin - PO Q6H PRN SEVERE PAIN Loperamide HCl 4 mg 10/19/16 19:19 Imodium - PO Q6H PRN DIARRHEA Magnesium Citrate 300 ml 10/19/16 19:19 Citroma - PO Q48H PRN CONSTIPATION Magnesium Hydroxide 30 ml 10/19/16 19:19 Milk Of Magnesia - PO DAILY PRN CONSTIPATION Metformin HCl 500 mg 10/20/16 07:00 11/08/16 06:04 Glucophage - PO 500 mg BIDAC RAI Administration Methyl Salicylate 1 applic 11/04/16 18:00 11/07/16 21:34 Den-Valderrama - TP 1 applic BID RAI Administration Nicotine Polacrilex 2 mg 10/19/16 19:19 11/07/16 10:03 Nicorette Gum - BUC 2 mg Q2H PRN Administration NICOTINE REPLACEMENT RX Multivit/Folic Acid/Iron 1 tab 10/20/16 10:00 11/07/16 10:02 Vitamins (Sjr) - PO 1 tab DAILY RAI Administration Pseudoephedrine/Triprolidine 1 combo 10/19/16 19:19 Actifed - PO TID PRN NASAL CONGESTION Risperidone 1 mg 10/29/16 20:00 11/07/16 20:17 Risperdal - PO 1 mg HS@2000 RAI Administration Thiamine HCl 100 mg 10/19/16 22:00 11/07/16 21:35 Vitamin B1 - PO 100 mg HS RAI Administration Current Side Effect: No Lab tests ordered: No Lab tests reviewed: Yes Provider note:: [place] [facility] [place] [place] Risperidone 1 mg po hs,Cogentin 1 mg po hs, Campral 333 mg 2 tab po tid. Total face to face time:: 30 Psychiatric Treatment Plan - Problem List (1) Alcohol dependence Current Visit: Yes (2) Arthritis Current Visit: Yes (3) Asthma Current Visit: Yes Qualifiers: Asthma severity: mild persistent Asthma complication type: with status asthmaticus Qualified Code(s): J45.32 - Mild persistent asthma with status asthmaticus (4) COPD (chronic obstructive pulmonary disease) Current Visit: Yes Qualifiers: COPD type: emphysema Emphysema type: unspecified Qualified Code( s): J43.9 - Emphysema, unspecified (5) Cannabis dependence Current Visit: Yes (6) Cocaine dependence Current Visit: Yes (7) Diabetes mellitus type II, non insulin dependent Current Visit: Yes
[2016-11-08] MEDS: ASPIRIN 81 MG CHEWABLE TABLETS PO SCH (09:41)
[2016-11-08] MEDS: hydrOXYzine PAMOATE 50 MG CAPSULE (FP) PO PRN (09:41)
[2016-11-08] MEDS: METHYL SALICYLATE/MENTHOL OINT 30 GM TUBE TP SCH (09:41)
[2016-11-08] MEDS: PRENATAL VITAMINS W/ FOLIC ACID TABLET (FP) PO SCH (09:41)
[2016-11-08] MEDS: BACITRACIN 0.9 GM PACKET TP SCH (09:41)
[2016-11-08] MEDS: BUDESONIDE/FORMETEROL FUMARATE 160/4.5 mcg INHALER IH SCH (09:41)
[2016-11-08] MEDS: ACETAMINOPHEN 325 MG TABLET (FP) PO PRN (09:45)
[2016-11-08] MEDS: amLODIPine BESYLATE 5 MG TABLET (FP) PO SCH (09:47)
== END 2016-11-08 10:05 | disposition home or self-care (01) | DRG 895 ==
LOC: YASAS 16:35 → Y3W 18:12
PROVIDERS: ADMIT Psychiatry & Neurology Psychiatry; ATTEND Psychiatry & Neurology Psychiatry
PROC: HZ42ZZZ Group Counseling for Substance Abuse Treatment, Cognitive-Behavioral (ICD-10-PCS; principal; 2016-10-19)
DX: F10.20 Alcohol dependence, uncomplicated (principal); F14.20 Cocaine dependence, uncomplicated; J45.32 Mild persistent asthma with status asthmaticus; F12.20 Cannabis dependence, uncomplicated; F17.210 Nicotine dependence, cigarettes, uncomplicated; F25.0 Schizoaffective disorder, bipolar type; E11.9 Type 2 diabetes mellitus without complications; J43.9 Emphysema, unspecified; M13.861 Other specified arthritis, right knee; R26.2 Difficulty in walking, not elsewhere classified; Z99.89 Dependence on other enabling machines and devices; E78.5 Hyperlipidemia, unspecified; I10 Essential (primary) hypertension; E66.9 Obesity, unspecified; Z68.35 Body mass index [BMI] 35.0-35.9, adult; Z91.011 Allergy to milk products; Z91.018 Allergy to other foods; G47.00 Insomnia, unspecified; Z79.84 Long term (current) use of oral hypoglycemic drugs; Z87.438 Personal history of other diseases of male genital organs; Z91.5 Personal history of self-harm
CPT/HCPCS: 36415; 80053; 81003; 85027; 86593; 86780; 87389; 93005; 93010; J2794

== ENCOUNTER 2017-01-23 15:45 | Inpatient (IN) | payer OTHER ==
[2017-01-23 18:04] VITALS: BMI 36.9
[2017-01-23] MEDS ORDERED: chlordiazePOXIDE HCL 25 MG CAPSULE PO PRN (18:07)
[2017-01-23] MEDS ORDERED: MAGNESIUM HYDROX 2400MG/30ML ORAL SUSPENSION 30 ML CUP PO PRN (18:07)
[2017-01-23] MEDS ORDERED: MAGNESIUM CITRATE 300 ML BOTTLE PO PRN (18:07)
[2017-01-23] MEDS ORDERED: LOPERAMIDE HCL 2 MG CAPSULE PO PRN (18:07)
[2017-01-23] MEDS ORDERED: MAG HYDROX/AL HYDROX/SIMETH 30 ML UNIT-DOSE CUP PO PRN (18:07)
[2017-01-23] MEDS ORDERED: MENTHOL/PHENOL 1 EACH UD MM PRN (18:07)
[2017-01-23] MEDS ORDERED: hydrOXYzine PAMOATE 50 MG CAPSULE (FP) PO PRN (18:07)
[2017-01-23] MEDS ORDERED: ACETAMINOPHEN 325 MG TABLET (FP) PO PRN (18:07)
[2017-01-23] MEDS ORDERED: P-EPHED 60MG/TRIPROLIDI 2.5MG TABLET PO PRN (18:07)
[2017-01-23] MEDS ORDERED: guaiFENesin/D-METHORPHAN HB 10 ML UNIT-DOSE CUPS PO PRN (18:07)
[2017-01-23] MEDS ORDERED: IBUPROFEN 400 MG TABLET (FP) PO PRN (18:07)
[2017-01-23] MEDS ORDERED: chlordiazePOXIDE HCL 25 MG CAPSULE PO ONE (18:07)
[2017-01-23] MEDS ORDERED: NICOTINE POLACRILEX 2 MG GUM BUC PRN (18:07)
[2017-01-23] MEDS ORDERED: ALBUTEROL SO4 18 GM HFA INHALER IH PRN (18:10)
--- NOTE | 2017-01-23 18:21 | HP ---
CIWA Score - CIWA Score Nausea/Vomitin-Mild Nausea/No Vomiting Muscle Tremors: 4-Moderate,w/Arms Extend Anxiety: 4-Mod. Anxious/Guarded Agitation: 3 Paroxysmal Sweats: 3 Orientation: 0-Oriented Tacttile Disturbances: 1-Very Mild Itch/Numbness Auditory Disturbances: 0-None Visual Disturbances: 0-None Headache: 0-None Present CIWA-Ar Total Score: 16 Admission ROS BHS - HPI Chief Complaint: Withdrawal sx. Allergies/Adverse Reactions: Allergies Allergy/AdvReac Type Severity Reaction Status Date / Time morphine Allergy Intermediate Hives Verified 01/23/17 17:42 tomato [Tomato] Allergy Intermediate RASH/ITCHIN Verified 01/23/17 17:42 G milk Allergy Mild Hives Verified 01/23/17 17:42 History of Present Illness: 56 Y/O man with a long hx. of alcoholism is admitted for detox. Pt. has been in previous detox & rehab with mixed result. Pt. receives his medical & psychiatric care in a multi-specialty clinic in [place] on [address] Exam Limitations: No Limitations - Ebola screening Have you traveled outside of the country in the last 21 days: No Have you had contact with anyone from an Ebola affected area: No Have you been sick,other than usual withdrawal symptoms: No Do you have a fever: No - Review of Systems Constitutional: Diaphoresis EENT: reports: No Symptoms Reported Respiratory: reports: No Symptoms reported Cardiac: reports: No Symptoms Reported GI: reports: Nausea, Abdominal cramping : reports: Frequency Musculoskeletal: reports: Joint Pain Integumentary: reports: Sweating Neuro: reports: Tremors, Other (Frequent blackout) Endocrine: reports: No Symptoms Reported Hematology: reports: No Symptoms Reported Psychiatric: reports: No Sypmtoms Reported Other Systems: Reviewed and Negative Patient History - Patient Medical History Hx Anemia: No Hx Asthma: Yes Hx Chronic Obstructive Pulmonary Disease (COPD): No Hx Cancer: No Hx Cardiac Disorders: No Hx Congestive Heart Failure: No Hx Hypertension: Yes Hx Hypercholesterolemia: Yes (on med) Hx Pacemaker: No HX Cerebrovascular Accident: No Hx Seizures: No Hx Dementia: No Hx Diabetes: Yes (BGM=96) Hx Gastrointestinal Disorders: Yes (acid reflux) Hx Liver Disease: No Hx Genitourinary Disorders: No Hx Sexually Transmitted Disorders: Yes (Syphillis was treated in 2013) Hx Renal Disease (ESRD): No Hx Thyroid Disease: Yes (no med) Hx Human Immunodeficiency Virus (HIV): No (last 2016 negative) Hx Hepatitis C: No Hx Depression: Yes (ptsd) Hx Suicide Attempt: Yes (drinking bleach age 20) Hx Bipolar Disorder: No Hx Schizophrenia: Yes - Patient Surgical History Past Surgical History: No Hx Neurologic Surgery: No Hx Cataract Extraction: No Hx Cardiac Surgery: No Hx Lung Surgery: No Hx Breast Surgery: No Hx Breast Biopsy: No Hx Abdominal Surgery: No Hx Appendectomy: No Hx Cholecystectomy: No Hx Genitourinary Surgery: No Hx Section: No Hx Orthopedic Surgery: No Anesthesia Reaction: No - PPD History Previous Implant?: Yes Documented Results: Negative w/proof Implanted On Prior [facility] Admission?: Yes Date: 02/13/16 Results: 0 PPD to be Administered?: Yes - Smoking Cessation Smoking history: Current every day smoker Have you smoked in the past 12 months: Yes Aproximately how many cigarettes per day: 3 Cigars Per Day: 0 Hx Chewing Tobacco Use: No Initiated information on smoking cessation: Yes 'Breaking Loose' booklet given: 01/23/17 - Substance & Tx. History Hx Alcohol Use: Yes Hx Substance Use: Yes Substance Use Type: Alcohol, Cocaine Hx Substance Use Treatment: Yes (Detox & Rehab at [facility] 2016) - Substances Abused Alcohol Route: Oral Frequency: Daily Amount used: genia 1/2 pint Age of first use: 13 Date of Last Use: 01/23/17 Crack Route: Smoking Frequency: Daily Amount used: $60 Age of first use: 18 Date of Last Use: 01/23/17 Family Disease History - Family Disease History Family Disease History: Heart Disease: Father (CAD,), Mother (HTN,asthma ,) Admission Physical Exam S - Vital Signs Vital Signs: Vital Signs - 24 hr 01/23/17 17:53 Temperature 97.2 F L Pulse Rate 92 H Respiratory 18 Rate Blood Pressure 148/82 - Physical General Appearance: Yes: Alcohol on Breath, Tremorous, Sweating, Anxious HEENTM: Yes: Within Normal Limits Respiratory: Yes: Chest Non-Tender, Lungs Clear, Normal Breath Sounds Neck: Yes: Supple Breast: Yes: Breast Exam Deferred Cardiology: Yes: Regular Rhythm, Regular Rate, S1, S2 Abdominal: Yes: Normal Bowel Sounds, Non Tender, Soft Genitourinary: Yes: Within Normal Limits Back: Yes: Within Normal Limits Musculoskeletal: Yes: Within Normal Limits Extremities: Yes: Tremors Neurological: Yes: Fully Oriented, Alert Integumentary: Yes: Diaphoresis Lymphatic: Yes: Within Normal Limits - Diagnostic (1) Alcohol dependence with uncomplicated withdrawal Current Visit: Yes Status: Chronic (2) Arthritis Current Visit: Yes Status: Chronic (3) Cocaine dependence Current Visit: Yes Status: Chronic (4) Diabetes mellitus type II, non insulin dependent Current Visit: Yes Status: Chronic (5) Hypercholesteremia Current Visit: Yes Status: Chronic (6) Hypertension Current Visit: Yes Status: Chronic Qualifiers: Hypertension type: essential hypertension Qualified Code(s): I10 - Essential (primary) hypertension; I10 - Essential (primary) hypertension; I10 - Essential (primary) hypertension Cleared for Admission [facility] - Detox or Rehab [facility] Level of Care: Medically Managed Detox Regimen/Protocol: Librium [facility] Breath Alcohol Content Breath Alcohol Content: 0.096 Urine Drug Screen - Results Drug Screen Negative: No Urine Drug Screen Results: SANIYA-Cocaine, BZO-Benzodiazepines
[2017-01-23] MEDS: NICOTINE 7 MG/24 HOURS TOPICAL PATCH TD SCH (19:52)
[2017-01-23 23:18] LABS: URINE APPEARANCE CLEAR; URINE BILIRUBIN NEGATIVE (NEGATIVE); URINE BLOOD NEGATIVE (NEGATIVE); URINE COLOR YELLOW; URINE GLUCOSE (UA) NEGATIVE (NEGATIVE); URINE KETONE NEGATIVE (NEGATIVE); URINE NITRITE NEGATIVE (NEGATIVE); URINE UROBILINOGEN NEGATIVE mg/dL (0.2-1.0)
[2017-01-23 23:23] LABS: URINE PROTEIN 1+ (NEGATIVE)
[2017-01-23 23:26] LABS: URINE MUCUS RARE; URINE RBC 2; URINE WBC 2
[2017-01-23] MEDS: chlordiazePOXIDE HCL 25 MG CAPSULE PO SCH (23:37)
[2017-01-23] MEDS: ATORVASTATIN CA 10 MG TABLET (FP) PO SCH (23:38)
[2017-01-23] MEDS: BUDESONIDE/FORMETEROL FUMARATE 160/4.5 mcg INHALER IH SCH (23:39)
[2017-01-23] MEDS: THIAMINE HCL 100 MG TABLET (FP) PO SCH (23:39)
[2017-01-24] MEDS: chlordiazePOXIDE HCL 25 MG CAPSULE PO SCH ×4 (05:10→22:44)
[2017-01-24] MEDS: INSULIN (NOVOLOG) ASPART 100 UNITS/ML 10ML VIAL SQ SCH ×2 (07:12→17:07)
[2017-01-24] MEDS: metFORMIN HCL 500 MG TABLET (FP) PO SCH ×2 (07:12→17:38)
--- NOTE | 2017-01-24 09:36 | CONSULT ---
[facility] Psychiatric Consult - Data Date of interview: 01/24/17 Admission source: [facility] Identifying data: This is 56 years old obese male with history of Schizoaffective disorder, history o fpsychiatric hospitalizations,. intoxicated with: Alcohol, Crack and Nicotine Substance Abuse History: - Smoking Cessation. Smoking history: Current every day smoker. Have you smoked in the past 12 months: Yes. Aproximately how many cigarettes per day: 3. Cigars Per Day: 0. Hx Chewing Tobacco Use: No. Initiated information on smoking cessation: Yes. 'Breaking Loose' booklet given : 01/23/17. - Substance & Tx. History. Hx Alcohol Use: Yes. Hx Substance Use : Yes. Substance Use Type: Alcohol, Cocaine. Hx Substance Use Treatment: Yes ( Detox & Rehab at [facility] 2017). - Substances Abused. Alcohol. Route: Oral. Frequency: Daily. Amount used: genia 1/2 pint. Age of first use: 13. Date of Last Use: 01/23/17. Crack. Route: Smoking. Frequency: Daily. Amount used: $60. Age of first use: 18. Date of Last Use: 01/23/17 Medical History: Obesity, Thyroid disorder, HTN, Hypercholesterolemia, COPD, Arthritis, DM-2, TIA history Psychiatric History: Patient reports to carryb Schizoaffective disorder with most recent psychiatric admission on 1 month ago at [facility], [facility] currently taking: Risper mandy 1mg po qhs. Cogentin 1mg po qhs. [id number] po bid Physical/Sexual Abuse/Trauma History: Denies Additional Comment: Risper mandy 1mg po qhs. Cogentin 1mg po qhs. [id number] po bid Psychiatric Findings - Problem List ([place] 1, 2,3) (1) Alcohol dependence with uncomplicated withdrawal Current Visit: Yes Status: Chronic (2) Cocaine dependence Current Visit: Yes Status: Chronic (3) Alcohol dependence Current Visit: No Status: Acute (4) Schizoaffective disorder Current Visit: No Status: Acute Qualifiers: Schizoaffective disorder type: depressive Qualified Code(s): F25.1 - Schizoaffective disorder, depressive type; F25.1 - Schizoaffective disorder, depressive type; F25.1 - Schizoaffective disorder, depressive type; F25.1 - Schizoaffective disorder, depressive type (5) Cannabis dependence Current Visit: No Status: Chronic (6) Nicotine dependence Current Visit: No Status: Chronic (7) Schizoaffective disorder, bipolar type Current Visit: No Status: Chronic - Initial Treatment Plan Initial Treatment Plan: Risper mandy 1mg po qhs. Cogentin 1mg po qhs. [id number] po bid
[2017-01-24] MEDS: ASPIRIN COATED 81 MG TABLET.EC PO SCH (10:17)
[2017-01-24] MEDS: PRENATAL VITAMINS W/ FOLIC ACID TABLET (FP) PO SCH (10:17)
[2017-01-24] MEDS: hydrOXYzine PAMOATE 50 MG CAPSULE (FP) PO SCH ×2 (10:17→22:44)
[2017-01-24] MEDS: amLODIPine BESYLATE 5 MG TABLET (FP) PO SCH (10:17)
[2017-01-24] MEDS: NICOTINE 7 MG/24 HOURS TOPICAL PATCH TD SCH (10:18)
[2017-01-24] MEDS: BUDESONIDE/FORMETEROL FUMARATE 160/4.5 mcg INHALER IH SCH ×2 (10:18→22:43)
[2017-01-24 10:30] LABS: MEAN CELL VOLUME 84.5 fl (80-96); MEAN PLT VOLUME 6.5 fl (7.5-11.1); PLATELET COUNT 271 K/MM3 (134-434); WHITE BLOOD COUNT 3.7 K/mm3 (4.0-10.0)
[2017-01-24 10:35] LABS: ALBUMIN 3.3 g/dl (3.4-5.0); ANION GAP 6 (8-16); CALCIUM 7.8 mg/dL (8.5-10.1); CO2 29 mmol/L (21-32); GLUCOSE,RANDOM 104 mg/dL (74-106)
[2017-01-24 10:39] LABS: ALK PHOS 93 U/L (45-117); BILIRUBIN,TOTAL 0.6 mg/dL (0.2-1.0); CREATININE 0.7 mg/dL (0.7-1.3); SGOT/AST 15 U/L (15-37); SGPT/ALT 20 U/L (12-78); TOT PROT 6.1 g/dl (6.4-8.2)
--- NOTE | 2017-01-24 11:19 | PN ---
[facility] CIWA - CIWA Score Nausea/Vomitin-No Nausea/No Vomiting Muscle Tremors: 4-Moderate,w/Arms Extend Anxiety: 3 Agitation: 4-Moderately Restless Paroxysmal Sweats: 3 Orientation: 0-Oriented Tacttile Disturbances: 0-None Auditory Disturbances: 0-None Visual Disturbances: 0-None Headache: 0-None Present CIWA-Ar Total Score: 14 S Progress Note (SOAP) Subjective: left knee pain sweats shakes interrupted sleep irritable diarrhea Objective: 01/24/17 11:14 Vital Signs Temperature 97.5 F L 01/24/17 10:33 Pulse Rate 78 01/24/17 10:33 Respiratory Rate 18 01/24/17 10:33 Blood Pressure 136/83 01/24/17 10:33 O2 Sat by Pulse Oximetry (%) Laboratory Tests 01/23/17 01/23/17 01/24/17 17:39 19:11 05:10 WBC RBC Hgb Hct MCV MCH MCHC RDW Plt Count MPV Sodium Potassium Chloride Carbon Dioxide Anion Gap BUN Creatinine Creat Clearance w eGFR POC Glucometer 96 99 Random Glucose Calcium Total Bilirubin AST ALT Alkaline Phosphatase Total Protein Albumin Urine Color Yellow Urine Appearance Clear Urine pH 5.0 Ur Specific [place] 1.021 Urine Protein 1+ H Urine Glucose (UA) Negative Urine Ketones Negative Urine Blood Negative Urine Nitrite Negative Urine Bilirubin Negative Urine Urobilinogen Negative Urine RBC 2 Urine WBC 2 Ur Epithelial Cells Rare Urine Mucus Rare 01/24/17 01/24/17 07:00 07:00 WBC 3.7 L RBC 4.84 Hgb 13.1 Hct 40.9 MCV 84.5 MCH 27.0 MCHC 32.0 RDW 14.0 Plt Count 271 MPV 6.5 L Sodium 143 Potassium 3.8 Chloride 108 H Carbon Dioxide 29 Anion Gap 6 L BUN 14 D Creatinine 0.7 Creat Clearance w eGFR > 60 POC Glucometer Random Glucose 104 D Calcium 7.8 L Total Bilirubin 0.6 AST 15 D ALT 20 Alkaline Phosphatase 93 D Total Protein 6.1 L Albumin 3.3 L Urine Color Urine Appearance Urine pH Ur Specific [place] Urine Protein Urine Glucose (UA) Urine Ketones Urine Blood Urine Nitrite Urine Bilirubin Urine Urobilinogen Urine RBC Urine WBC Ur Epithelial Cells Urine Mucus aaox3 ambulating no acute distress left knee bruising, swelling, abrasion noted. encouraged to keep leg elevated naproxen bid ordered ice pack ordered x-ray ordered Assessment: 01/24/17 11:19 withdrawal sx Plan: continue detox increase fluids x-ray naproxen bid
[2017-01-24 11:27] LABS: URINE LEUK ESTERASE Negative (NEGATIVE)
[2017-01-24] MEDS ORDERED: FLU VACCINE QUAD 60 MCG/0.5 ML (MDV 17-18) IM ONE (12:00)
[2017-01-24] MEDS: NAPROXEN 500 MG TABLET (FP) PO SCH ×2 (13:10→22:44)
[2017-01-24] MEDS ORDERED: BACITRACIN 0.9 GM PACKET TP ONE (15:03)
[2017-01-24] MEDS ORDERED: BACITRACIN 0.9 GM PACKET ONE (17:52)
[2017-01-24] MEDS: risperiDONE 1 MG TABLET (FP) PO SCH (22:43)
[2017-01-24] MEDS: BACITRACIN 0.9 GM PACKET TP SCH (22:43)
[2017-01-24] MEDS: BENZTROPINE MESYLATE 1 MG TABLET (FP) PO SCH (22:44)
[2017-01-24] MEDS: ATORVASTATIN CA 10 MG TABLET (FP) PO SCH (22:44)
[2017-01-24] MEDS: THIAMINE HCL 100 MG TABLET (FP) PO SCH (22:44)
[2017-01-24] MEDS: METHYL SALICYLATE/MENTHOL OINT 30 GM TUBE TP SCH (22:46)
[2017-01-25] MEDS: chlordiazePOXIDE HCL 25 MG CAPSULE PO SCH ×3 (05:28→17:13)
[2017-01-25] MEDS: INSULIN (NOVOLOG) ASPART 100 UNITS/ML 10ML VIAL SQ SCH ×2 (06:12→17:14)
[2017-01-25] MEDS: metFORMIN HCL 500 MG TABLET (FP) PO SCH ×2 (06:12→17:13)
--- NOTE | 2017-01-25 07:43 | EKG ---
Test Reason : Blood Pressure : / mmHG Vent. Rate : 088 BPM Atrial Rate : 088 BPM P-R Int : 182 ms QRS Dur : 096 ms QT Int : 374 ms P-R-T Axes : 079 024 031 degrees QTc Int : 452 ms NORMAL SINUS RHYTHM NORMAL ECG WHEN COMPARED WITH ECG OF 19-OCT-2016 21:06, NO SIGNIFICANT CHANGE WAS FOUND Confirmed by MURALI CASTILLO MD ([id number]) on 01/25/2017 7:42:50 AM Referred By: Confirmed By:MURALI CASTILLO MD
[2017-01-25] MEDS: PRENATAL VITAMINS W/ FOLIC ACID TABLET (FP) PO SCH (10:23)
[2017-01-25] MEDS: ASPIRIN COATED 81 MG TABLET.EC PO SCH (10:23)
[2017-01-25] MEDS: METHYL SALICYLATE/MENTHOL OINT 30 GM TUBE TP SCH ×2 (10:23→22:37)
[2017-01-25] MEDS: BACITRACIN 0.9 GM PACKET TP SCH ×2 (10:23→22:37)
[2017-01-25] MEDS: amLODIPine BESYLATE 5 MG TABLET (FP) PO SCH (10:23)
[2017-01-25] MEDS: NAPROXEN 500 MG TABLET (FP) PO SCH ×2 (10:23→22:38)
[2017-01-25] MEDS: NICOTINE 7 MG/24 HOURS TOPICAL PATCH TD SCH (10:24)
[2017-01-25] MEDS: BUDESONIDE/FORMETEROL FUMARATE 160/4.5 mcg INHALER IH SCH ×2 (10:24→22:38)
[2017-01-25] MEDS: hydrOXYzine PAMOATE 50 MG CAPSULE (FP) PO SCH ×2 (10:26→23:18)
--- NOTE | 2017-01-25 10:30 | PN ---
S CIWA - CIWA Score Nausea/Vomitin-No Nausea/No Vomiting Muscle Tremors: 4-Moderate,w/Arms Extend Anxiety: 2 Agitation: 4-Moderately Restless Paroxysmal Sweats: 3 Orientation: 0-Oriented Tacttile Disturbances: 0-None Auditory Disturbances: 0-None Visual Disturbances: 0-None Headache: 0-None Present CIWA-Ar Total Score: 13 BHS Progress Note (SOAP) Subjective: sweats shakes my knee is feeling so much better interrupted sleep Objective: 01/25/17 10:29 Vital Signs Temperature 96.8 F L 01/25/17 09:23 Pulse Rate 82 01/25/17 09:23 Respiratory Rate 20 01/25/17 09:23 Blood Pressure 132/71 01/25/17 09:23 O2 Sat by Pulse Oximetry (%) Laboratory Tests 01/23/17 01/23/17 01/24/17 17:39 19:11 05:10 WBC RBC Hgb Hct MCV MCH MCHC RDW Plt Count MPV Sodium Potassium Chloride Carbon Dioxide Anion Gap BUN Creatinine Creat Clearance w eGFR POC Glucometer 96 99 Random Glucose Calcium Total Bilirubin AST ALT Alkaline Phosphatase Total Protein Albumin Urine Color Yellow Urine Appearance Clear Urine pH 5.0 Ur Specific [place] 1.021 Urine Protein 1+ H Urine Glucose (UA) Negative Urine Ketones Negative Urine Blood Negative Urine Nitrite Negative Urine Bilirubin Negative Urine Urobilinogen Negative Ur Leukocyte Esterase Negative Urine RBC 2 Urine WBC 2 Ur Epithelial Cells Rare Urine Mucus Rare RPR Titer T.pallidum Ab ([facility]) 01/24/17 01/24/17 01/24/17 07:00 07:00 07:00 WBC 3.7 L RBC 4.84 Hgb 13.1 Hct 40.9 MCV 84.5 MCH 27.0 MCHC 32.0 RDW 14.0 Plt Count 271 MPV 6.5 L Sodium 143 Potassium 3.8 Chloride 108 H Carbon Dioxide 29 Anion Gap 6 L BUN 14 D Creatinine 0.7 Creat Clearance w eGFR > 60 POC Glucometer Random Glucose 104 D Calcium 7.8 L Total Bilirubin 0.6 AST 15 D ALT 20 Alkaline Phosphatase 93 D Total Protein 6.1 L Albumin 3.3 L Urine Color Urine Appearance Urine pH Ur Specific [place] Urine Protein Urine Glucose (UA) Urine Ketones Urine Blood Urine Nitrite Urine Bilirubin Urine Urobilinogen Ur Leukocyte Esterase Urine RBC Urine WBC Ur Epithelial Cells Urine Mucus RPR Titer Reactive 1:2 H T.pallidum Ab (A) Previously reactive 01/24/17 01/25/17 16:45 05:27 WBC RBC Hgb Hct MCV MCH MCHC RDW Plt Count MPV Sodium Potassium Chloride Carbon Dioxide Anion Gap BUN Creatinine Creat Clearance w eGFR POC Glucometer 118 106 Random Glucose Calcium Total Bilirubin AST ALT Alkaline Phosphatase Total Protein Albumin Urine Color Urine Appearance Urine pH Ur Specific [place] Urine Protein Urine Glucose (UA) Urine Ketones Urine Blood Urine Nitrite Urine Bilirubin Urine Urobilinogen Ur Leukocyte Esterase Urine RBC Urine WBC Ur Epithelial Cells Urine Mucus RPR Titer T.pallidum Ab ([facility]) [id number] ambulating no acute distress Assessment: 01/25/17 10:29 withdrawal sx Plan: continue detox increase fluids
[2017-01-25] MEDS: chlordiazePOXIDE 5 MG CAPSULE PO SCH (22:37)
[2017-01-25] MEDS: THIAMINE HCL 100 MG TABLET (FP) PO SCH (22:37)
[2017-01-25] MEDS: BENZTROPINE MESYLATE 1 MG TABLET (FP) PO SCH (22:38)
[2017-01-25] MEDS: ATORVASTATIN CA 10 MG TABLET (FP) PO SCH (22:38)
[2017-01-25] MEDS: risperiDONE 1 MG TABLET (FP) PO SCH (22:38)
[2017-01-26] MEDS: metFORMIN HCL 500 MG TABLET (FP) PO SCH ×2 (07:43→17:37)
[2017-01-26] MEDS: chlordiazePOXIDE 5 MG CAPSULE PO SCH ×3 (07:44→17:37)
[2017-01-26] MEDS: INSULIN (NOVOLOG) ASPART 100 UNITS/ML 10ML VIAL SQ SCH ×2 (07:44→17:18)
--- NOTE | 2017-01-26 09:20 | PN ---
[facility] Progress Note (SOAP) Subjective: feeling better my knee is not swollen as much anymore little sweats Objective: 01/26/17 09:19 Vital Signs Temperature 97.3 F L 01/26/17 07:52 Pulse Rate 86 01/26/17 07:52 Respiratory Rate 18 01/26/17 07:52 Blood Pressure 130/57 01/26/17 07:52 O2 Sat by Pulse Oximetry (%) aaox3 ambulating safely cane ordered no acute distress Assessment: 01/26/17 09:19 mild withdrawal sx Plan: continue detox d/c in am
[2017-01-26] MEDS: PRENATAL VITAMINS W/ FOLIC ACID TABLET (FP) PO SCH (10:30)
[2017-01-26] MEDS: NAPROXEN 500 MG TABLET (FP) PO SCH ×2 (10:31→22:24)
[2017-01-26] MEDS: amLODIPine BESYLATE 5 MG TABLET (FP) PO SCH (10:31)
[2017-01-26] MEDS: ASPIRIN COATED 81 MG TABLET.EC PO SCH (10:31)
[2017-01-26] MEDS: BACITRACIN 0.9 GM PACKET TP SCH ×2 (10:31→22:24)
[2017-01-26] MEDS: hydrOXYzine PAMOATE 50 MG CAPSULE (FP) PO SCH ×2 (10:31→22:24)
[2017-01-26] MEDS: METHYL SALICYLATE/MENTHOL OINT 30 GM TUBE TP SCH ×2 (10:32→22:25)
[2017-01-26] MEDS: BUDESONIDE/FORMETEROL FUMARATE 160/4.5 mcg INHALER IH SCH ×2 (10:32→22:23)
[2017-01-26] MEDS: NICOTINE 7 MG/24 HOURS TOPICAL PATCH TD SCH (10:33)
[2017-01-26] MEDS: chlordiazePOXIDE HCL 10 MG CAPSULE PO SCH (22:24)
[2017-01-26] MEDS: risperiDONE 1 MG TABLET (FP) PO SCH (22:24)
[2017-01-26] MEDS: BENZTROPINE MESYLATE 1 MG TABLET (FP) PO SCH (22:24)
[2017-01-26] MEDS: ATORVASTATIN CA 10 MG TABLET (FP) PO SCH (22:24)
[2017-01-26] MEDS: THIAMINE HCL 100 MG TABLET (FP) PO SCH (22:25)
[2017-01-27] MEDS: chlordiazePOXIDE HCL 10 MG CAPSULE PO SCH ×2 (05:20→13:55)
[2017-01-27] MEDS: metFORMIN HCL 500 MG TABLET (FP) PO SCH (06:13)
[2017-01-27] MEDS: INSULIN (NOVOLOG) ASPART 100 UNITS/ML 10ML VIAL SQ SCH (06:14)
--- NOTE | 2017-01-27 08:33 | DS ---
[facility] Detox Discharge Summary Admission Date: 01/23/17 Discharge Date: 01/27/17 - History Present History: Alcohol Dependence, Cocaine Dependence - Physical Exam Results Vital Signs: Vital Signs Temperature 97.3 F L 01/27/17 06:00 Pulse Rate 67 01/27/17 06:00 Respiratory Rate 18 01/27/17 06:00 Blood Pressure 115/64 01/27/17 06:00 O2 Sat by Pulse Oximetry (%) - Treatment Hospital Course: Detox Protocol Followed, Detoxed Safely, Responded well, Discharged Condition Good, Rehab Referral Accepted - Medication Discharge Medications: Ambulatory Orders Risperidone [Risperdal -] 1 mg PO HS #30 tablet 06/28/16 Albuterol Sulfate Inhaler - [Ventolin HFA Inhaler -] 2 inh IH Q4H PRN #1 inh Amlodipine Besylate [Norvasc -] 5 mg PO DAILY #30 tab 11/08/16 Aspirin [ASA -] 81 mg PO DAILY #30 tab.chew 11/08/16 Atorvastatin Ca [Lipitor] 10 mg PO HS #30 tablet 11/08/16 Budesonide/Formeterol Fumarate [SYMBICORT 160/4.5mcg -] 1 inh PO BID #1 inh Metformin HCl [Glucophage -] 500 mg PO BIDAC #60 tablet 11/08/16 Benztropine Mesylate [Cogentin -] 2 mg PO HS@2000 01/23/17 Hydroxyzine Pamoate [Vistaril -] 50 mg PO BID 01/23/17 Benztropine Mesylate [Cogentin -] 1 mg PO HS #30 tablet 01/24/17 Hydroxyzine Pamoate [Vistaril -] 50 mg PO BID #60 cap 01/24/17 Risperidone [Risperdal -] 1 mg PO HS #30 tablet 01/24/17 - Diagnosis (1) Cocaine dependence Current Visit: Yes Status: Chronic (2) Alcohol dependence with uncomplicated withdrawal Current Visit: Yes Status: Chronic (3) Arthritis Current Visit: Yes Status: Chronic (4) Hypercholesteremia Current Visit: Yes Status: Chronic (5) Diabetes mellitus type II, non insulin dependent Current Visit: Yes Status: Chronic (6) Hypertension Current Visit: Yes Status: Chronic Qualifiers: Hypertension type: essential hypertension Qualified Code(s): I10 - Essential (primary) hypertension (7) Right knee injury Current Visit: Yes Status: Acute Qualifiers: Encounter type: initial encounter Qualified Code(s): S89.91XA - Unspecified injury of right lower leg, initial encounter - AMA Did Patient Leave Against Medical Advice: No
[2017-01-27] MEDS: NAPROXEN 500 MG TABLET (FP) PO SCH (09:21)
[2017-01-27] MEDS: METHYL SALICYLATE/MENTHOL OINT 30 GM TUBE TP SCH (09:21)
[2017-01-27] MEDS: PRENATAL VITAMINS W/ FOLIC ACID TABLET (FP) PO SCH (09:21)
[2017-01-27] MEDS: BACITRACIN 0.9 GM PACKET TP SCH (09:21)
[2017-01-27] MEDS: ASPIRIN COATED 81 MG TABLET.EC PO SCH (09:21)
[2017-01-27] MEDS: BUDESONIDE/FORMETEROL FUMARATE 160/4.5 mcg INHALER IH SCH (09:22)
[2017-01-27] MEDS: hydrOXYzine PAMOATE 50 MG CAPSULE (FP) PO SCH (09:22)
[2017-01-27] MEDS: amLODIPine BESYLATE 5 MG TABLET (FP) PO SCH (09:22)
[2017-01-27] MEDS: NICOTINE 7 MG/24 HOURS TOPICAL PATCH TD SCH (09:22)
[2017-01-27 10:39] VITALS: BP 124/73; PULSE 89; TEMP 97.7
== END 2017-01-27 14:17 | disposition home or self-care (01) | DRG 897 ==
LOC: YASAS 15:45 → Y6N 18:23
PROVIDERS: ADMIT Internal Medicine; ATTEND Internal Medicine
PROC: HZ2ZZZZ Detoxification Services for Substance Abuse Treatment (ICD-10-PCS; principal; 2017-01-23)
DX: F19.230 Other psychoactive substance dependence with withdrawal, uncomplicated (principal); F14.20 Cocaine dependence, uncomplicated; F10.230 Alcohol dependence with withdrawal, uncomplicated; F17.210 Nicotine dependence, cigarettes, uncomplicated; F25.1 Schizoaffective disorder, depressive type; K21.9 Gastro-esophageal reflux disease without esophagitis; E11.9 Type 2 diabetes mellitus without complications; I10 Essential (primary) hypertension; E78.00 Pure hypercholesterolemia, unspecified; M19.90 Unspecified osteoarthritis, unspecified site; J45.909 Unspecified asthma, uncomplicated; S89.91XA Unspecified injury of right lower leg, initial encounter; Z91.011 Allergy to milk products; Z91.018 Allergy to other foods; Z88.6 Allergy status to analgesic agent; Z87.438 Personal history of other diseases of male genital organs; Z79.84 Long term (current) use of oral hypoglycemic drugs; X58.XXXA Exposure to other specified factors, initial encounter; Y93.9 Activity, unspecified; Y92.9 Unspecified place or not applicable
CPT/HCPCS: 36415; 73564-TC-LT; 80053; 81003; 81015; 85027; 86593; 86780; 90688; 93005; 93010; G0008; J2794

== ENCOUNTER 2017-01-27 14:20 | Inpatient (IN) | payer OTHER ==
[2017-01-27 14:48] VITALS: BMI 38.7
[2017-01-27] MEDS ORDERED: P-EPHED 60MG/TRIPROLIDI 2.5MG TABLET PO PRN (15:10)
[2017-01-27] MEDS ORDERED: MAG HYDROX/AL HYDROX/SIMETH 30 ML UNIT-DOSE CUP PO PRN (15:10)
[2017-01-27] MEDS ORDERED: MAGNESIUM CITRATE 300 ML BOTTLE PO PRN (15:10)
[2017-01-27] MEDS ORDERED: LOPERAMIDE HCL 2 MG CAPSULE PO PRN (15:10)
[2017-01-27] MEDS ORDERED: MENTHOL/PHENOL 1 EACH UD MM PRN (15:10)
[2017-01-27] MEDS ORDERED: MAGNESIUM HYDROX 2400MG/30ML ORAL SUSPENSION 30 ML CUP PO PRN (15:10)
[2017-01-27] MEDS ORDERED: guaiFENesin/D-METHORPHAN HB 10 ML UNIT-DOSE CUPS PO PRN (15:10)
[2017-01-27] MEDS ORDERED: IBUPROFEN 400 MG TABLET (FP) PO PRN (15:10)
--- NOTE | 2017-01-27 15:13 | HP ---
[facility] Rehab Assess/Revision - Admission History Admitted to Rehab from: [facility] Date of Admission to Rehab: 01/27/17 - Vital signs Vital Signs: Vital Signs Period Temp Pulse Resp BP Sys/Loredo Pulse Ox Last 24 Hr 97.5 F 97 20 137/84 - Findings Detox History & Physical reviewed: Yes Concur with findings: Yes Inpatient Rehab Admission - Initial Determination Are CD services needed?: Yes Free of communicable disease: Yes Not in need of hospitalization: Yes - Rehab Admission Criteria Comorbidities: Yes Patient is meeting Inpatient Rehab admission criteria:: Yes
[2017-01-27] MEDS: NICOTINE 14 MG/24 HOURS TOPICAL PATCH TD SCH (17:00)
[2017-01-27] MEDS: metFORMIN HCL 500 MG TABLET (FP) PO SCH (17:02)
[2017-01-27] MEDS: ATORVASTATIN CA 10 MG TABLET (FP) PO SCH (22:29)
[2017-01-27] MEDS: BENZTROPINE MESYLATE 1 MG TABLET (FP) PO SCH (22:29)
[2017-01-27] MEDS: THIAMINE HCL 100 MG TABLET (FP) PO SCH (22:29)
[2017-01-27] MEDS: risperiDONE 1 MG TABLET (FP) PO SCH (22:29)
[2017-01-27] MEDS: BUDESONIDE/FORMETEROL FUMARATE 160/4.5 mcg INHALER IH SCH (22:29)
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
[2017-01-28] MEDS: NICOTINE POLACRILEX 2 MG GUM BUC PRN ×2 (06:31→10:22)
[2017-01-28] MEDS: metFORMIN HCL 500 MG TABLET (FP) PO SCH ×2 (07:16→17:03)
[2017-01-28] MEDS ORDERED: hydrOXYzine PAMOATE 50 MG CAPSULE (FP) PO PRN (09:32)
[2017-01-28] MEDS: PRENATAL VITAMINS W/ FOLIC ACID TABLET (FP) PO SCH (10:21)
[2017-01-28] MEDS: amLODIPine BESYLATE 5 MG TABLET (FP) PO SCH (10:21)
[2017-01-28] MEDS: ASPIRIN 81 MG CHEWABLE TABLETS PO SCH (10:21)
[2017-01-28] MEDS: NICOTINE 14 MG/24 HOURS TOPICAL PATCH TD SCH (10:22)
[2017-01-28] MEDS: BUDESONIDE/FORMETEROL FUMARATE 160/4.5 mcg INHALER IH SCH ×2 (10:22→22:14)
[2017-01-28] MEDS: hydrOXYzine PAMOATE 50 MG CAPSULE (FP) PO PRN ×2 (10:23→21:55)
[2017-01-28] MEDS: risperiDONE 1 MG TABLET (FP) PO SCH (21:52)
[2017-01-28] MEDS: THIAMINE HCL 100 MG TABLET (FP) PO SCH (21:52)
[2017-01-28] MEDS: ATORVASTATIN CA 10 MG TABLET (FP) PO SCH (21:52)
[2017-01-28] MEDS: BENZTROPINE MESYLATE 1 MG TABLET (FP) PO SCH (21:53)
[2017-01-29] MEDS: NICOTINE POLACRILEX 2 MG GUM BUC PRN ×2 (06:23→12:27)
[2017-01-29] MEDS: metFORMIN HCL 500 MG TABLET (FP) PO SCH ×2 (07:08→16:49)
[2017-01-29] MEDS: PRENATAL VITAMINS W/ FOLIC ACID TABLET (FP) PO SCH (10:21)
[2017-01-29] MEDS: amLODIPine BESYLATE 5 MG TABLET (FP) PO SCH (10:21)
[2017-01-29] MEDS: NICOTINE 14 MG/24 HOURS TOPICAL PATCH TD SCH (10:21)
[2017-01-29] MEDS: ASPIRIN 81 MG CHEWABLE TABLETS PO SCH (10:21)
[2017-01-29] MEDS: BUDESONIDE/FORMETEROL FUMARATE 160/4.5 mcg INHALER IH SCH ×2 (10:22→21:52)
[2017-01-29] MEDS: hydrOXYzine PAMOATE 50 MG CAPSULE (FP) PO PRN (10:23)
[2017-01-29] MEDS: ACETAMINOPHEN 325 MG TABLET (FP) PO PRN (16:50)
[2017-01-29] MEDS: THIAMINE HCL 100 MG TABLET (FP) PO SCH (21:52)
[2017-01-29] MEDS: BENZTROPINE MESYLATE 1 MG TABLET (FP) PO SCH (21:53)
[2017-01-29] MEDS: risperiDONE 1 MG TABLET (FP) PO SCH (21:53)
[2017-01-29] MEDS: ATORVASTATIN CA 10 MG TABLET (FP) PO SCH (21:53)
[2017-01-29] MEDS: NAPROXEN 500 MG TABLET (FP) PO SCH (21:54)
[2017-01-30] MEDS: NICOTINE POLACRILEX 2 MG GUM BUC PRN ×3 (06:38→15:50)
[2017-01-30] MEDS: metFORMIN HCL 500 MG TABLET (FP) PO SCH ×2 (06:46→16:59)
[2017-01-30] MEDS: NAPROXEN 500 MG TABLET (FP) PO SCH ×2 (10:00→21:59)
[2017-01-30] MEDS: PRENATAL VITAMINS W/ FOLIC ACID TABLET (FP) PO SCH (10:00)
[2017-01-30] MEDS: amLODIPine BESYLATE 5 MG TABLET (FP) PO SCH (10:00)
[2017-01-30] MEDS: BUDESONIDE/FORMETEROL FUMARATE 160/4.5 mcg INHALER IH SCH ×2 (10:00→21:59)
[2017-01-30] MEDS: ASPIRIN 81 MG CHEWABLE TABLETS PO SCH (10:00)
[2017-01-30] MEDS: NICOTINE 14 MG/24 HOURS TOPICAL PATCH TD SCH (10:00)
[2017-01-30] MEDS: hydrOXYzine PAMOATE 50 MG CAPSULE (FP) PO PRN (10:01)
[2017-01-30] MEDS: ACETAMINOPHEN 325 MG TABLET (FP) PO PRN (16:59)
[2017-01-30] MEDS: BENZTROPINE MESYLATE 1 MG TABLET (FP) PO SCH (21:59)
[2017-01-30] MEDS: risperiDONE 1 MG TABLET (FP) PO SCH (21:59)
[2017-01-30] MEDS: ATORVASTATIN CA 10 MG TABLET (FP) PO SCH (21:59)
[2017-01-30] MEDS: THIAMINE HCL 100 MG TABLET (FP) PO SCH (22:00)
[2017-01-31] MEDS: NICOTINE POLACRILEX 2 MG GUM BUC PRN ×3 (06:22→15:41)
[2017-01-31] MEDS: metFORMIN HCL 500 MG TABLET (FP) PO SCH ×2 (06:58→16:50)
[2017-01-31] MEDS: amLODIPine BESYLATE 5 MG TABLET (FP) PO SCH (10:02)
[2017-01-31] MEDS: PRENATAL VITAMINS W/ FOLIC ACID TABLET (FP) PO SCH (10:02)
[2017-01-31] MEDS: BUDESONIDE/FORMETEROL FUMARATE 160/4.5 mcg INHALER IH SCH ×2 (10:02→21:58)
[2017-01-31] MEDS: NICOTINE 14 MG/24 HOURS TOPICAL PATCH TD SCH (10:02)
[2017-01-31] MEDS: NAPROXEN 500 MG TABLET (FP) PO SCH ×2 (10:02→21:58)
[2017-01-31] MEDS: ASPIRIN 81 MG CHEWABLE TABLETS PO SCH (10:02)
[2017-01-31] MEDS: hydrOXYzine PAMOATE 50 MG CAPSULE (FP) PO PRN ×2 (10:03→22:00)
[2017-01-31] MEDS ORDERED: METHYL SALICYLATE/MENTHOL OINT 30 GM TUBE TP SCH (12:47)
[2017-01-31] MEDS: ACETAMINOPHEN 325 MG TABLET (FP) PO PRN (16:50)
[2017-01-31] MEDS: THIAMINE HCL 100 MG TABLET (FP) PO SCH (21:58)
[2017-01-31] MEDS: risperiDONE 1 MG TABLET (FP) PO SCH (21:58)
[2017-01-31] MEDS: BENZTROPINE MESYLATE 1 MG TABLET (FP) PO SCH (21:58)
[2017-01-31] MEDS: ATORVASTATIN CA 10 MG TABLET (FP) PO SCH (21:58)
[2017-01-31] MEDS: METHYL SALICYLATE/MENTHOL OINT 30 GM TUBE TP PRN (22:25)
[2017-02-01] MEDS: metFORMIN HCL 500 MG TABLET (FP) PO SCH ×2 (06:36→17:13)
[2017-02-01] MEDS: ACETAMINOPHEN 325 MG TABLET (FP) PO PRN (06:36)
[2017-02-01] MEDS: NICOTINE POLACRILEX 2 MG GUM BUC PRN ×2 (06:37→10:13)
[2017-02-01] MEDS: ASPIRIN 81 MG CHEWABLE TABLETS PO SCH (10:10)
[2017-02-01] MEDS: NAPROXEN 500 MG TABLET (FP) PO SCH ×2 (10:10→22:15)
[2017-02-01] MEDS: amLODIPine BESYLATE 5 MG TABLET (FP) PO SCH (10:10)
[2017-02-01] MEDS: NICOTINE 14 MG/24 HOURS TOPICAL PATCH TD SCH (10:10)
[2017-02-01] MEDS: PRENATAL VITAMINS W/ FOLIC ACID TABLET (FP) PO SCH (10:12)
[2017-02-01] MEDS: hydrOXYzine PAMOATE 50 MG CAPSULE (FP) PO PRN ×2 (10:12→22:17)
[2017-02-01] MEDS: BUDESONIDE/FORMETEROL FUMARATE 160/4.5 mcg INHALER IH SCH ×2 (10:13→22:14)
[2017-02-01] MEDS: ALBUTEROL SO4 18 GM HFA INHALER IH PRN (17:58)
[2017-02-01] MEDS: ATORVASTATIN CA 10 MG TABLET (FP) PO SCH (22:14)
[2017-02-01] MEDS: risperiDONE 1 MG TABLET (FP) PO SCH (22:15)
[2017-02-01] MEDS: BENZTROPINE MESYLATE 1 MG TABLET (FP) PO SCH (22:15)
[2017-02-01] MEDS: THIAMINE HCL 100 MG TABLET (FP) PO SCH (22:16)
[2017-02-02] MEDS: NICOTINE POLACRILEX 2 MG GUM BUC PRN ×3 (06:28→16:03)
[2017-02-02] MEDS: metFORMIN HCL 500 MG TABLET (FP) PO SCH ×2 (07:08→16:50)
[2017-02-02] MEDS: NALTREXONE HCL 50 MG TABLET PO SCH ×3 (07:11→10:16)
[2017-02-02] MEDS: NAPROXEN 500 MG TABLET (FP) PO SCH ×2 (10:03→21:37)
[2017-02-02] MEDS: BUDESONIDE/FORMETEROL FUMARATE 160/4.5 mcg INHALER IH SCH ×2 (10:03→21:40)
[2017-02-02] MEDS: PRENATAL VITAMINS W/ FOLIC ACID TABLET (FP) PO SCH (10:03)
[2017-02-02] MEDS: NICOTINE 14 MG/24 HOURS TOPICAL PATCH TD SCH (10:03)
[2017-02-02] MEDS: ASPIRIN 81 MG CHEWABLE TABLETS PO SCH (10:03)
[2017-02-02] MEDS: amLODIPine BESYLATE 5 MG TABLET (FP) PO SCH (10:04)
--- NOTE | 2017-02-02 11:03 | PN ---
Psychiatric Progress Note Vital Signs: Vital Signs Period Temp Pulse Resp BP Sys/Loredo Pulse Ox Last 24 Hr 97 F-97 F 72-90 16-20 136-152/81-86 Date of Session: 02/02/17 Chief Complaint:: "I want to get the shot for craving for alcohol" HPI: Patient addressing Alcohol, Cocaine Dependence comorbid with Nicotine Dependence, Schizoaffective Disorder and Substance-induced Sleep Disorder ROS: Start Naltrexone 50 mg po daily Current Medications: Active Medications Generic Name Dose Route Start Last Admin Trade Name Freq PRN Reason Stop Dose Admin Acetaminophen 650 mg 01/27/17 15:10 02/01/17 06:36 Tylenol - PO 650 mg Q4H PRN Administration FEVER OR PAIN Al Hydroxide/Mg Hydroxide 30 ml 01/27/17 15:10 01/28/17 15:24 Mylanta Oral Suspension - PO 30 ml Q6H PRN Administration DYSPEPSIA Albuterol Sulfate 2 puff 01/27/17 15:11 02/01/17 17:58 Ventolin Hfa Inhaler - IH 2 puff Q4H PRN Administration ASTHMA Amlodipine Besylate 5 mg 01/28/17 10:00 02/02/17 10:04 Norvasc - PO 5 mg DAILY RAI Administration Aspirin 81 mg 01/28/17 10:00 02/02/17 10:03 Asa - PO 81 mg DAILY RAI Administration Atorvastatin Calcium 10 mg 01/27/17 22:00 02/01/17 22:14 Lipitor - PO 10 mg HS RAI Administration Benztropine Mesylate 1 mg 01/27/17 22:00 02/01/17 22:15 Cogentin - PO 1 mg HS RAI Administration Budesonide/Formoterol Fumarate 1 puff 01/27/17 22:00 02/02/17 10:03 Symbicort 160/4.5mcg - IH 1 puff BID RAI Administration Eucalyptus/Menthol/Phenol/Sorbitol 1 each 01/27/17 15:10 Cepastat Lozenge - MM Q4H PRN SORE THROAT Guaifenesin 10 ml 01/27/17 15:10 Robitussin Dm - PO Q6H PRN COUGH Hydroxyzine Pamoate 50 mg 01/27/17 15:10 02/01/17 22:17 Vistaril - PO 50 mg Q4H PRN Administration AGITATION Loperamide HCl 4 mg 01/27/17 15:10 Imodium - PO Q6H PRN DIARRHEA Magnesium Citrate 300 ml 01/27/17 15:10 Citroma - PO Q48H PRN CONSTIPATION Magnesium Hydroxide 30 ml 01/27/17 15:10 Milk Of Magnesia - PO DAILY PRN CONSTIPATION Metformin HCl 500 mg 01/27/17 16:30 02/02/17 07:08 Glucophage - PO 500 mg BIDAC RAI Administration Methyl Salicylate 1 applic 01/31/17 22:19 01/31/17 22:25 Den-Valderrama - TP 1 applic BID PRN Administration PAIN Naltrexone HCl 50 mg 02/02/17 06:45 02/02/17 10:03 Revia - PO 50 mg DAILY RAI Administration Naproxen 500 mg 01/29/17 22:00 02/02/17 10:03 Naprosyn - PO 500 mg BID RAI Administration Nicotine 14 mg 01/27/17 17:15 02/02/17 10:03 Nicoderm Patch - TD 14 mg DAILY RAI Administration Nicotine Polacrilex 2 mg 01/27/17 15:10 02/02/17 06:28 Nicorette Gum - BUC 2 mg Q2H PRN Administration NICOTINE REPLACEMENT RX Multivit/Folic Acid/Iron 1 tab 01/28/17 10:00 02/02/17 10:03 Vitamins (Sjr) - PO 1 tab DAILY RAI Administration Pseudoephedrine/Triprolidine 1 combo 01/27/17 15:10 Actifed - PO TID PRN NASAL CONGESTION Risperidone 1 mg 01/27/17 22:00 02/01/17 22:15 Risperdal - PO 1 mg HS RAI Administration Thiamine HCl 100 mg 01/27/17 22:00 02/01/17 22:16 Vitamin B1 - PO 100 mg HS RAI Administration Medication(s) Change(s): Asthma/COPD, Arthritis, HTN. Hyperlipidemia, type 2 DM and Obesity Current Side Effect: No Lab tests ordered: Yes Lab tests reviewed: Yes Provider note:: Patient requests to get Vivitrol injection for alcohol craving. He was previously on Acamprosate but stopped taking it because it was too cumbersome. He will be going for outpatient treatment to [facility] where this medication can be administered. He will be started on Naltrexone 50 mg po daily for 2 days to see how he respond before ordering Vivitrol shot. Benefits vs Riks of medication discussed with patient. LFT's are normal Total face to face time:: 25 Mental Status Exam - Mental Status Exam Alert and Oriented to: Time, Place, Person Cognitive Function: Fair Mood: Hopeful, Euthymic Affect: Appropriate Patient Behavior: Cooperative Speech Pattern: Clear Voice Loudness: Normal Thought Process: Intact, Goal Oriented Thought Disorder: Not Present Hallucinations: Denies Suicidal Ideation: Denies Insight/Judgement: Fair Sleep: Fair Appetite: Good Muscle strength/Tone: Normal Gait/Station: Normal Psychiatric Treatment Plan - Problem List (1) Alcohol dependence Current Visit: No (2) Cocaine dependence Current Visit: No (3) Nicotine dependence Current Visit: No (4) Schizoaffective disorder Current Visit: No Qualifiers: Schizoaffective disorder type: depressive Qualified Code(s): F25.1 - Schizoaffective disorder, depressive type (5) Substance-induced sleep disorder Current Visit: Yes (6) Arthritis Current Visit: No (7) Asthma Current Visit: No Qualifiers: Asthma severity: mild persistent Asthma complication type: with status asthmaticus (8) COPD (chronic obstructive pulmonary disease) Current Visit: No Qualifiers: COPD type: emphysema Emphysema type: unspecified Qualified Code(s): J43.9 - Emphysema, unspecified (9) Diabetes mellitus type II, non insulin dependent Current Visit: No (10) Hypercholesteremia Current Visit: No (11) Hypertension Current Visit: No Qualifiers: Hypertension type: essential hypertension Qualified Code(s): I10 - Essential (primary) hypertension (12) Obesity Current Visit: No Initial treatment plan: 1) Start Naltrexone 50 mg po daily for 2 days. 2) Start Vivitrol 380 mg IM on 02/04/17. 3) Monitor progress
[2017-02-02] MEDS: THIAMINE HCL 100 MG TABLET (FP) PO SCH (21:36)
[2017-02-02] MEDS: BENZTROPINE MESYLATE 1 MG TABLET (FP) PO SCH (21:37)
[2017-02-02] MEDS: risperiDONE 1 MG TABLET (FP) PO SCH (21:37)
[2017-02-02] MEDS: ATORVASTATIN CA 10 MG TABLET (FP) PO SCH (21:37)
[2017-02-02] MEDS: hydrOXYzine PAMOATE 50 MG CAPSULE (FP) PO PRN (21:39)
[2017-02-03] MEDS: metFORMIN HCL 500 MG TABLET (FP) PO SCH ×2 (08:50→16:51)
[2017-02-03] MEDS ORDERED: NALTREXONE HCL 50 MG TABLET PO SCH (10:00)
[2017-02-03] MEDS: NAPROXEN 500 MG TABLET (FP) PO SCH ×2 (10:15→23:05)
[2017-02-03] MEDS: amLODIPine BESYLATE 5 MG TABLET (FP) PO SCH (10:15)
[2017-02-03] MEDS: NICOTINE 14 MG/24 HOURS TOPICAL PATCH TD SCH (10:15)
[2017-02-03] MEDS: PRENATAL VITAMINS W/ FOLIC ACID TABLET (FP) PO SCH (10:16)
[2017-02-03] MEDS: ASPIRIN 81 MG CHEWABLE TABLETS PO SCH (10:18)
[2017-02-03] MEDS: NICOTINE POLACRILEX 2 MG GUM BUC PRN ×2 (10:18→14:41)
[2017-02-03] MEDS: BUDESONIDE/FORMETEROL FUMARATE 160/4.5 mcg INHALER IH SCH ×2 (10:18→23:05)
[2017-02-03] MEDS: ALBUTEROL SO4 18 GM HFA INHALER IH PRN (14:42)
[2017-02-03] MEDS: BENZTROPINE MESYLATE 1 MG TABLET (FP) PO SCH (23:05)
[2017-02-03] MEDS: risperiDONE 1 MG TABLET (FP) PO SCH (23:05)
[2017-02-03] MEDS: ATORVASTATIN CA 10 MG TABLET (FP) PO SCH (23:05)
[2017-02-03] MEDS: THIAMINE HCL 100 MG TABLET (FP) PO SCH (23:06)
[2017-02-04] MEDS: metFORMIN HCL 500 MG TABLET (FP) PO SCH ×2 (07:27→16:38)
[2017-02-04] MEDS: METHYL SALICYLATE/MENTHOL OINT 30 GM TUBE TP PRN (09:52)
[2017-02-04] MEDS: NICOTINE 14 MG/24 HOURS TOPICAL PATCH TD SCH (09:52)
[2017-02-04] MEDS: BUDESONIDE/FORMETEROL FUMARATE 160/4.5 mcg INHALER IH SCH ×2 (09:52→21:44)
[2017-02-04] MEDS: PRENATAL VITAMINS W/ FOLIC ACID TABLET (FP) PO SCH (09:53)
[2017-02-04] MEDS: amLODIPine BESYLATE 5 MG TABLET (FP) PO SCH (09:53)
[2017-02-04] MEDS: NICOTINE POLACRILEX 2 MG GUM BUC PRN ×2 (09:53→12:51)
[2017-02-04] MEDS: ASPIRIN 81 MG CHEWABLE TABLETS PO SCH (09:53)
[2017-02-04] MEDS: NAPROXEN 500 MG TABLET (FP) PO SCH ×2 (09:53→21:45)
[2017-02-04] MEDS ORDERED: NALTREXONE MICROSPHERES (VIVITROL) 380 MG DISP.SYRIN IM ONE (10:00)
--- NOTE | 2017-02-04 10:45 | PN ---
Psychiatric Progress Note Vital Signs: Vital Signs Period Temp Pulse Resp BP Sys/Loredo Pulse Ox Last 24 Hr 97.6 F 74 18-20 124/78 Date of Session: 02/04/17 Chief Complaint:: Follow up medication management HPI: Patient addressing Alcohol, Cocaine Dependence comorbid with Nicotine Dependence, Schizoaffective Disorder and Substance-induced Sleep Disorder ROS: Arthritis, Asthma/COPD, type 2 DM, HTN, HLD, Obesity Current Medications: Active Medications Generic Name Dose Route Start Last Admin Trade Name Freq PRN Reason Stop Dose Admin Acetaminophen 650 mg 01/27/17 15:10 02/01/17 06:36 Tylenol - PO 650 mg Q4H PRN Administration FEVER OR PAIN Al Hydroxide/Mg Hydroxide 30 ml 01/27/17 15:10 01/28/17 15:24 Mylanta Oral Suspension - PO 30 ml Q6H PRN Administration DYSPEPSIA Albuterol Sulfate 2 puff 01/27/17 15:11 02/03/17 14:42 Ventolin Hfa Inhaler - IH 2 puff Q4H PRN Administration ASTHMA Amlodipine Besylate 5 mg 01/28/17 10:00 02/04/17 09:53 Norvasc - PO 5 mg DAILY RAI Administration Aspirin 81 mg 01/28/17 10:00 02/04/17 09:53 Asa - PO 81 mg DAILY RAI Administration Atorvastatin Calcium 10 mg 01/27/17 22:00 02/03/17 23:05 Lipitor - PO Not Given HS RAI Benztropine Mesylate 1 mg 01/27/17 22:00 02/03/17 23:05 Cogentin - PO Not Given HS RAI Budesonide/Formoterol Fumarate 1 puff 01/27/17 22:00 02/04/17 09:52 Symbicort 160/4.5mcg - IH 1 puff BID RAI Administration Eucalyptus/Menthol/Phenol/Sorbitol 1 each 01/27/17 15:10 Cepastat Lozenge - MM Q4H PRN SORE THROAT Guaifenesin 10 ml 01/27/17 15:10 Robitussin Dm - PO Q6H PRN COUGH Hydroxyzine Pamoate 50 mg 01/27/17 15:10 02/02/17 21:39 Vistaril - PO 50 mg Q4H PRN Administration AGITATION Loperamide HCl 4 mg 01/27/17 15:10 Imodium - PO Q6H PRN DIARRHEA Magnesium Citrate 300 ml 01/27/17 15:10 Citroma - PO Q48H PRN CONSTIPATION Magnesium Hydroxide 30 ml 01/27/17 15:10 Milk Of Magnesia - PO DAILY PRN CONSTIPATION Metformin HCl 500 mg 01/27/17 16:30 02/04/17 07:27 Glucophage - PO 500 mg BIDAC RAI Administration Methyl Salicylate 1 applic 01/31/17 22:19 02/04/17 09:52 Den-Valderrama - TP 1 applic BID PRN Administration PAIN Naproxen 500 mg 01/29/17 22:00 02/04/17 09:53 Naprosyn - PO 500 mg BID RAI Administration Nicotine 14 mg 01/27/17 17:15 02/04/17 09:52 Nicoderm Patch - TD Not Given DAILY RAI Nicotine Polacrilex 2 mg 01/27/17 15:10 02/04/17 09:53 Nicorette Gum - BUC 2 mg Q2H PRN Administration NICOTINE REPLACEMENT RX Multivit/Folic Acid/Iron 1 tab 01/28/17 10:00 02/04/17 09:53 Vitamins (Sjr) - PO 1 tab DAILY RAI Administration Pseudoephedrine/Triprolidine 1 combo 01/27/17 15:10 Actifed - PO TID PRN NASAL CONGESTION Risperidone 1 mg 01/27/17 22:00 02/03/17 23:05 Risperdal - PO Not Given HS RAI Thiamine HCl 100 mg 01/27/17 22:00 02/03/17 23:06 Vitamin B1 - PO Not Given HS RAI Medication(s) Change(s): Start Vivitrol 380 mg IM today Current Side Effect: No Lab tests ordered: Yes Lab tests reviewed: Yes Provider note:: Patient requested injection of Vivitrol as medication management for alcohol. He was started on Naltrexone on 02/02/17 and administered 50 mg po daily x 2 days. He tolerated medication very well without adverse-effects and today he will received his first injection of Vivitrol 380 mg IM. He will be referred on 02/11/17 for outpatient treatment to [facility] where he will continue to receive his monthly Vivitrol injection. Total face to face time:: 25 Mental Status Exam - Mental Status Exam Alert and Oriented to: Time, Place, Person Cognitive Function: Fair Patient Appearance: Well Groomed Mood: Hopeful, Euthymic Affect: Appropriate Patient Behavior: Inappropriate, Cooperative Speech Pattern: Clear Voice Loudness: Normal Thought Process: Intact, Goal Oriented Thought Disorder: Not Present Hallucinations: Denies Suicidal Ideation: Denies Homicidal Ideation: Denies Insight/Judgement: Fair Sleep: Fair Appetite: Good Muscle strength/Tone: Normal Gait/Station: Normal Psychiatric Treatment Plan - Problem List (1) Alcohol dependence Current Visit: No (2) Cocaine dependence Current Visit: No (3) Nicotine dependence Current Visit: No (4) Schizoaffective disorder Current Visit: No Qualifiers: Schizoaffective disorder type: depressive Qualified Code(s): F25.1 - Schizoaffective disorder, depressive type (5) Substance-induced sleep disorder Current Visit: Yes (6) Arthritis Current Visit: No (7) Asthma Current Visit: No Qualifiers: Asthma severity: mild persistent Asthma complication type: with status asthmaticus (8) COPD (chronic obstructive pulmonary disease) Current Visit: No Qualifiers: COPD type: emphysema Emphysema type: unspecified Qualified Code(s): J43.9 - Emphysema, unspecified (9) Diabetes mellitus type II, non insulin dependent Current Visit: No (10) Hypercholesteremia Current Visit: No (11) Hypertension Current Visit: No Qualifiers: Hypertension type: essential hypertension Qualified Code(s): I10 - Essential (primary) hypertension (12) Obesity Current Visit: No Initial treatment plan: 1) Start Vivitrol 380 mg IM today. 2) Monitor progress
[2017-02-04] MEDS: ACETAMINOPHEN 325 MG TABLET (FP) PO PRN (12:23)
[2017-02-04] MEDS: THIAMINE HCL 100 MG TABLET (FP) PO SCH (21:44)
[2017-02-04] MEDS: BENZTROPINE MESYLATE 1 MG TABLET (FP) PO SCH (21:45)
[2017-02-04] MEDS: risperiDONE 1 MG TABLET (FP) PO SCH (21:45)
[2017-02-04] MEDS: ATORVASTATIN CA 10 MG TABLET (FP) PO SCH (21:45)
[2017-02-04] MEDS: hydrOXYzine PAMOATE 50 MG CAPSULE (FP) PO PRN (21:46)
[2017-02-05] MEDS: metFORMIN HCL 500 MG TABLET (FP) PO SCH ×2 (07:10→17:04)
[2017-02-05] MEDS: NAPROXEN 500 MG TABLET (FP) PO SCH ×2 (09:49→21:25)
[2017-02-05] MEDS: amLODIPine BESYLATE 5 MG TABLET (FP) PO SCH (09:49)
[2017-02-05] MEDS: PRENATAL VITAMINS W/ FOLIC ACID TABLET (FP) PO SCH (09:49)
[2017-02-05] MEDS: BUDESONIDE/FORMETEROL FUMARATE 160/4.5 mcg INHALER IH SCH ×2 (09:49→21:26)
[2017-02-05] MEDS: NICOTINE 14 MG/24 HOURS TOPICAL PATCH TD SCH (09:49)
[2017-02-05] MEDS: ASPIRIN 81 MG CHEWABLE TABLETS PO SCH (09:49)
[2017-02-05] MEDS: hydrOXYzine PAMOATE 50 MG CAPSULE (FP) PO PRN ×2 (09:50→21:26)
[2017-02-05] MEDS: NICOTINE POLACRILEX 2 MG GUM BUC PRN (09:50)
[2017-02-05] MEDS: risperiDONE 1 MG TABLET (FP) PO SCH (21:25)
[2017-02-05] MEDS: THIAMINE HCL 100 MG TABLET (FP) PO SCH (21:25)
[2017-02-05] MEDS: ATORVASTATIN CA 10 MG TABLET (FP) PO SCH (21:25)
[2017-02-05] MEDS: BENZTROPINE MESYLATE 1 MG TABLET (FP) PO SCH (21:26)
[2017-02-06] MEDS: metFORMIN HCL 500 MG TABLET (FP) PO SCH ×2 (06:17→17:04)
[2017-02-06] MEDS: NICOTINE 14 MG/24 HOURS TOPICAL PATCH TD SCH (09:54)
[2017-02-06] MEDS: PRENATAL VITAMINS W/ FOLIC ACID TABLET (FP) PO SCH (09:54)
[2017-02-06] MEDS: amLODIPine BESYLATE 5 MG TABLET (FP) PO SCH (09:54)
[2017-02-06] MEDS: hydrOXYzine PAMOATE 50 MG CAPSULE (FP) PO PRN ×2 (09:54→21:04)
[2017-02-06] MEDS: ASPIRIN 81 MG CHEWABLE TABLETS PO SCH (09:54)
[2017-02-06] MEDS: NAPROXEN 500 MG TABLET (FP) PO SCH ×2 (09:54→21:05)
[2017-02-06] MEDS: BUDESONIDE/FORMETEROL FUMARATE 160/4.5 mcg INHALER IH SCH ×2 (09:54→21:05)
[2017-02-06] MEDS: NICOTINE POLACRILEX 2 MG GUM BUC PRN ×2 (09:55→15:28)
[2017-02-06] MEDS: THIAMINE HCL 100 MG TABLET (FP) PO SCH (21:05)
[2017-02-06] MEDS: BENZTROPINE MESYLATE 1 MG TABLET (FP) PO SCH (21:05)
[2017-02-06] MEDS: ATORVASTATIN CA 10 MG TABLET (FP) PO SCH (21:05)
[2017-02-06] MEDS: risperiDONE 1 MG TABLET (FP) PO SCH (21:05)
[2017-02-07] MEDS: NICOTINE POLACRILEX 2 MG GUM BUC PRN (06:45)
[2017-02-07] MEDS: metFORMIN HCL 500 MG TABLET (FP) PO SCH (07:16)
[2017-02-07 07:49] VITALS: BP 141/79; PULSE 69; TEMP 97.5
--- NOTE | 2017-02-07 09:25 | PN ---
Psychiatric Progress Note Vital Signs: Vital Signs Period Temp Pulse Resp BP Sys/Loredo Pulse Ox Last 24 Hr 97.5 F 69-79 18-20 136-141/79-79 Date of Session: 02/07/17 Chief Complaint:: Discharge Note HPI: Patient addressing Alcohol and Cocaine Dependence comorbid with Nicotine Dependence, Schizoaffective Disorder and Substance-induced Sleep Disorder ROS: Arthritis, Asthma/COPD, type 2 DM, HTN, HLD and Obesity were medically managed Current Medications: Active Medications Generic Name Dose Route Start Last Admin Trade Name Freq PRN Reason Stop Dose Admin Acetaminophen 650 mg 01/27/17 15:10 02/04/17 12:23 Tylenol - PO 650 mg Q4H PRN Administration FEVER OR PAIN Al Hydroxide/Mg Hydroxide 30 ml 01/27/17 15:10 01/28/17 15:24 Mylanta Oral Suspension - PO 30 ml Q6H PRN Administration DYSPEPSIA Albuterol Sulfate 2 puff 01/27/17 15:11 02/03/17 14:42 Ventolin Hfa Inhaler - IH 2 puff Q4H PRN Administration ASTHMA Amlodipine Besylate 5 mg 01/28/17 10:00 02/06/17 09:54 Norvasc - PO 5 mg DAILY RAI Administration Aspirin 81 mg 01/28/17 10:00 02/06/17 09:54 Asa - PO 81 mg DAILY RAI Administration Atorvastatin Calcium 10 mg 01/27/17 22:00 02/06/17 21:05 Lipitor - PO 10 mg HS RAI Administration Benztropine Mesylate 1 mg 01/27/17 22:00 02/06/17 21:05 Cogentin - PO 1 mg HS RAI Administration Budesonide/Formoterol Fumarate 1 puff 01/27/17 22:00 02/06/17 21:05 Symbicort 160/4.5mcg - IH 1 puff BID RAI Administration Eucalyptus/Menthol/Phenol/Sorbitol 1 each 01/27/17 15:10 Cepastat Lozenge - MM Q4H PRN SORE THROAT Guaifenesin 10 ml 01/27/17 15:10 Robitussin Dm - PO Q6H PRN COUGH Hydroxyzine Pamoate 50 mg 01/27/17 15:10 02/06/17 21:04 Vistaril - PO 50 mg Q4H PRN Administration AGITATION Loperamide HCl 4 mg 01/27/17 15:10 Imodium - PO Q6H PRN DIARRHEA Magnesium Citrate 300 ml 01/27/17 15:10 Citroma - PO Q48H PRN CONSTIPATION Magnesium Hydroxide 30 ml 01/27/17 15:10 Milk Of Magnesia - PO DAILY PRN CONSTIPATION Metformin HCl 500 mg 01/27/17 16:30 02/07/17 07:16 Glucophage - PO 500 mg BIDAC RAI Administration Methyl Salicylate 1 applic 01/31/17 22:19 02/04/17 09:52 Den-Valderrama - TP 1 applic BID PRN Administration PAIN Naproxen 500 mg 01/29/17 22:00 02/06/17 21:05 Naprosyn - PO 500 mg BID RAI Administration Nicotine 14 mg 01/27/17 17:15 02/06/17 09:54 Nicoderm Patch - TD Not Given DAILY RAI Nicotine Polacrilex 2 mg 01/27/17 15:10 02/07/17 06:45 Nicorette Gum - BUC 2 mg Q2H PRN Administration NICOTINE REPLACEMENT RX Multivit/Folic Acid/Iron 1 tab 01/28/17 10:00 02/06/17 09:54 Vitamins (Sjr) - PO 1 tab DAILY RAI Administration Pseudoephedrine/Triprolidine 1 combo 01/27/17 15:10 Actifed - PO TID PRN NASAL CONGESTION Risperidone 1 mg 01/27/17 22:00 02/06/17 21:05 Risperdal - PO 1 mg HS RAI Administration Thiamine HCl 100 mg 01/27/17 22:00 02/06/17 21:05 Vitamin B1 - PO 100 mg HS RAI Administration Current Side Effect: No Lab tests ordered: Yes Lab tests reviewed: Yes Provider note:: Patient has completed this program today. He has met his treatment goals and will continue to address his issues in outpatient treatment at [facility]. Told senior medical writer that from his participation in this program, he has learned the importance of compliance to outpatient program and of attendance to AA/NA. He responded well to Risperdal 1 mg po HS, Cogentin 1 mg po HS and Vivitrol 380 mg IM administered on 02/04/17( next injection due on 03/04/17). Scripts for 30 days supply Risperdal and Cogentin are electronically transmitted to [facility] at [address] [place] [address]. He is stable for discharge today Total face to face time:: 35 Mental Status Exam - Mental Status Exam Alert and Oriented to: Time, Place, Person Cognitive Function: Fair Patient Appearance: Well Groomed Mood: Hopeful, Euthymic Affect: Appropriate Patient Behavior: Cooperative Speech Pattern: Clear Voice Loudness: Normal Thought Process: Intact, Goal Oriented Thought Disorder: Not Present Hallucinations: Denies Suicidal Ideation: Denies Homicidal Ideation: Denies Insight/Judgement: Fair Sleep: Fair Appetite: Good Muscle strength/Tone: Normal Gait/Station: Spastic Psychiatric Treatment Plan - Problem List (1) Alcohol dependence Current Visit: No (2) Cocaine dependence Current Visit: No (3) Nicotine dependence Current Visit: No (4) Schizoaffective disorder Current Visit: No Qualifiers: Schizoaffective disorder type: depressive Qualified Code(s): F25.1 - Schizoaffective disorder, depressive type (5) Substance-induced sleep disorder Current Visit: Yes (6) Arthritis Current Visit: No (7) Asthma Current Visit: No Qualifiers: Asthma severity: mild persistent Asthma complication type: with status asthmaticus (8) COPD (chronic obstructive pulmonary disease) Current Visit: No Qualifiers: COPD type: emphysema Emphysema type: unspecified Qualified Code(s): J43.9 - Emphysema, unspecified (9) Diabetes mellitus type II, non insulin dependent Current Visit: No (10) Hypercholesteremia Current Visit: No (11) Hypertension Current Visit: No Qualifiers: Hypertension type: essential hypertension Qualified Code(s): I10 - Essential (primary) hypertension (12) Obesity Current Visit: No Initial treatment plan: Patient is discharged today and refered to [facility] for outpatient treatment
[2017-02-07] MEDS: ASPIRIN 81 MG CHEWABLE TABLETS PO SCH (09:35)
[2017-02-07] MEDS: PRENATAL VITAMINS W/ FOLIC ACID TABLET (FP) PO SCH (09:35)
[2017-02-07] MEDS: amLODIPine BESYLATE 5 MG TABLET (FP) PO SCH (09:35)
[2017-02-07] MEDS: BUDESONIDE/FORMETEROL FUMARATE 160/4.5 mcg INHALER IH SCH (09:36)
[2017-02-07] MEDS: NAPROXEN 500 MG TABLET (FP) PO SCH (09:36)
[2017-02-07] MEDS: NICOTINE 14 MG/24 HOURS TOPICAL PATCH TD SCH (09:37)
== END 2017-02-07 10:00 | disposition home or self-care (01) | DRG 895 ==
LOC: YASAS 14:20 → Y3W 14:26
PROVIDERS: ADMIT Psychiatry & Neurology Psychiatry; ATTEND Psychiatry & Neurology Psychiatry
PROC: HZ42ZZZ Group Counseling for Substance Abuse Treatment, Cognitive-Behavioral (ICD-10-PCS; principal; 2017-01-27)
DX: F10.20 Alcohol dependence, uncomplicated (principal); F14.20 Cocaine dependence, uncomplicated; F19.282 Other psychoactive substance dependence with psychoactive substance-induced sleep disorder; F12.20 Cannabis dependence, uncomplicated; F25.1 Schizoaffective disorder, depressive type; I10 Essential (primary) hypertension; E11.9 Type 2 diabetes mellitus without complications; Z79.84 Long term (current) use of oral hypoglycemic drugs; J43.9 Emphysema, unspecified; E78.00 Pure hypercholesterolemia, unspecified; M12.9 Arthropathy, unspecified; E66.9 Obesity, unspecified; Z68.38 Body mass index [BMI] 38.0-38.9, adult
CPT/HCPCS: J2315; J2794

== ENCOUNTER 2020-04-11 16:48 | Inpatient (IN) | payer OTHER ==
[2020-04-11 18:02] VITALS: BMI 39.2
[2020-04-11] MEDS ORDERED: ALBUTEROL SO4 HFA INHALER IH PRN (19:36)
[2020-04-11] MEDS ORDERED: MAGNESIUM CITRATE 300 ML BOTTLE PO PRN (19:50)
[2020-04-11] MEDS ORDERED: IBUPROFEN 400 MG TABLET (FP) PO PRN (19:50)
[2020-04-11] MEDS ORDERED: METHOCARBAMOL 500 MG TABLET PO PRN (19:50)
[2020-04-11] MEDS ORDERED: ONDANSETRON *ODT* 4 MG TABLET SL PRN (19:50)
[2020-04-11] MEDS ORDERED: BISMUTH SUBSALICYLATE 524 MG/30 ML UD PO PRN (19:50)
[2020-04-11] MEDS ORDERED: MAG HYDROX/AL HYDROX/SIMETH 30 ML UNIT-DOSE CUP PO PRN (19:50)
[2020-04-11] MEDS ORDERED: MAGNESIUM HYDROX 2400MG/30ML ORAL SUSPENSION 30 ML CUP PO PRN (19:50)
[2020-04-11] MEDS ORDERED: chlordiazePOXIDE HCL 25 MG CAPSULE PO PRN (19:50)
[2020-04-11] MEDS ORDERED: MENTHOL/PHENOL 1 EACH UD MM PRN (19:50)
[2020-04-11] MEDS ORDERED: ACETAMINOPHEN 325 MG TABLET (FP) PO PRN ×2 (19:50)
[2020-04-11] MEDS ORDERED: BACITRACIN 15 GM TUBE TOPICAL OINTMENT TP SCH (22:00)
[2020-04-11] MEDS: THIAMINE HCL 100 MG TABLET (FP) PO SCH (22:18)
[2020-04-11] MEDS: MELATONIN 5 MG TABLETS PO SCH (22:18)
[2020-04-11] MEDS: chlordiazePOXIDE HCL 25 MG CAPSULE PO SCH (22:19)
[2020-04-11] MEDS: BACITRACIN 0.9 GM PACKET TP SCH (22:19)
[2020-04-11] MEDS: ATORVASTATIN CA 10 MG TABLET (FP) PO SCH (22:19)
[2020-04-11] MEDS: BUDESONIDE/FORMETEROL FUMARATE 160/4.5 mcg INHALER IH SCH (22:21)
[2020-04-12] MEDS: chlordiazePOXIDE HCL 25 MG CAPSULE PO SCH ×5 (05:20→22:18)
[2020-04-12] MEDS: metFORMIN HCL 500 MG TABLET (FP) PO SCH ×2 (06:33→17:18)
[2020-04-12] MEDS: BACITRACIN 0.9 GM PACKET TP SCH ×2 (11:42→22:18)
[2020-04-12] MEDS: amLODIPine BESYLATE 5 MG TABLET (FP) PO SCH ×2 (11:42→13:07)
[2020-04-12] MEDS: NICOTINE 14 MG/24 HOURS TOPICAL PATCH TD SCH (11:42)
[2020-04-12] MEDS: PRENATAL VITAMINS W/ FOLIC ACID TABLET (FP) PO SCH (11:43)
[2020-04-12] MEDS: BUDESONIDE/FORMETEROL FUMARATE 160/4.5 mcg INHALER IH SCH ×3 (11:43→22:16)
[2020-04-12 13:30] LABS: HEMATOCRIT 39.3 % (35.4-49); HEMOGLOBIN 13.2 GM/dL (11.7-16.9); MCH 29.9 pg (25.7-33.7); MCHC 33.6 g/dl (32.0-35.9); PLATELET COUNT 218 K/MM3 (134-434); RBC 4.42 M/mm3 (4.00-5.60); RDW 16.9 % (11.9-15.9); WHITE BLOOD COUNT 3.4 K/mm3 (4.0-10.0)
[2020-04-12 13:31] LABS: POTASSIUM 3.3 mmol/L (3.5-5.1)
[2020-04-12 13:36] LABS: CALCIUM 8.8 mg/dL (8.5-10.1)
[2020-04-12 13:37] LABS: ALBUMIN 3.8 g/dl (3.4-5.0); BLOOD UREA NITROGEN 20.5 mg/dL (7-18)
[2020-04-12 13:40] LABS: CREATININE 0.8 mg/dL (0.55-1.3)
[2020-04-12 13:41] LABS: BILIRUBIN,TOTAL 0.9 mg/dL (0.2-1); TOT PROT 6.7 g/dl (6.4-8.2)
[2020-04-12] MEDS ORDERED: MASKS NR ONE (17:18)
[2020-04-12] MEDS: THIAMINE HCL 100 MG TABLET (FP) PO SCH (22:17)
[2020-04-12] MEDS: risperiDONE 1 MG TABLET PO SCH (22:17)
[2020-04-12] MEDS: POTASSIUM CHLORIDE ORAL LIQUID 20 MEQ/15 ML PO SCH (22:17)
[2020-04-12] MEDS: BENZTROPINE MESYLATE 1 MG TABLET PO SCH (22:18)
[2020-04-12] MEDS: MELATONIN 5 MG TABLETS PO SCH (22:18)
[2020-04-12] MEDS: ATORVASTATIN CA 10 MG TABLET (FP) PO SCH (22:18)
[2020-04-13] MEDS: metFORMIN HCL 500 MG TABLET (FP) PO SCH ×2 (06:39→17:08)
[2020-04-13] MEDS: chlordiazePOXIDE HCL 25 MG CAPSULE PO SCH ×4 (06:42→22:28)
[2020-04-13] MEDS: POTASSIUM CHLORIDE ORAL LIQUID 20 MEQ/15 ML PO SCH ×2 (11:38→22:53)
[2020-04-13] MEDS: NICOTINE 14 MG/24 HOURS TOPICAL PATCH TD SCH (11:38)
[2020-04-13] MEDS: BACITRACIN 0.9 GM PACKET TP SCH ×2 (11:38→22:27)
[2020-04-13] MEDS: NICOTINE POLACRILEX 2 MG GUM BUC PRN (11:39)
[2020-04-13] MEDS: BUDESONIDE/FORMETEROL FUMARATE 160/4.5 mcg INHALER IH SCH ×2 (11:59→22:34)
[2020-04-13] MEDS: PRENATAL VITAMINS W/ FOLIC ACID TABLET (FP) PO SCH (11:59)
[2020-04-13] MEDS: amLODIPine BESYLATE 5 MG TABLET (FP) PO SCH (11:59)
[2020-04-13] MEDS ORDERED: FLU VACCINE (FLULAVAL) PF 60 MCG/0.5 ML SYRINGE 2020-2021 IM ONE (12:00)
[2020-04-13] MEDS ORDERED: PNEUMOC 13-VAL CONJ-DIP CRM/PF 0.5 ML DISP.SYRIN IM ONE (12:00)
[2020-04-13] MEDS ORDERED: PENICILLIN G BENZATHINE 2,400,000 UNIT/4 ML PFS IM ONE (13:55)
[2020-04-13] MEDS: ATORVASTATIN CA 10 MG TABLET (FP) PO SCH (22:28)
[2020-04-13] MEDS: BENZTROPINE MESYLATE 1 MG TABLET PO SCH (22:28)
[2020-04-13] MEDS: risperiDONE 1 MG TABLET PO SCH (22:28)
[2020-04-13] MEDS: THIAMINE HCL 100 MG TABLET (FP) PO SCH (22:34)
[2020-04-13] MEDS: MELATONIN 5 MG TABLETS PO SCH (22:54)
[2020-04-14] MEDS ORDERED: chlordiazePOXIDE HCL 10 MG CAPSULE PO PRN
[2020-04-14] MEDS: chlordiazePOXIDE HCL 10 MG CAPSULE PO SCH ×5 (06:50→22:37)
[2020-04-14] MEDS: metFORMIN HCL 500 MG TABLET (FP) PO SCH ×2 (06:50→18:01)
[2020-04-14] MEDS: BACITRACIN 0.9 GM PACKET TP SCH ×2 (10:14→22:32)
[2020-04-14] MEDS: amLODIPine BESYLATE 5 MG TABLET (FP) PO SCH (10:14)
[2020-04-14] MEDS: BUDESONIDE/FORMETEROL FUMARATE 160/4.5 mcg INHALER IH SCH ×2 (10:15→22:34)
[2020-04-14] MEDS: PRENATAL VITAMINS W/ FOLIC ACID TABLET (FP) PO SCH (10:15)
[2020-04-14] MEDS: NICOTINE 14 MG/24 HOURS TOPICAL PATCH TD SCH (10:15)
[2020-04-14] MEDS ORDERED: POTASSIUM CHLORIDE TABS 20 MEQ TABLET.ER (FP) PO ONE (15:09)
[2020-04-14] MEDS ORDERED: POTASSIUM CHLORIDE ORAL LIQUID 20 MEQ/15 ML PO ONE (15:13)
[2020-04-14] MEDS: BENZTROPINE MESYLATE 1 MG TABLET PO SCH (22:32)
[2020-04-14] MEDS: ATORVASTATIN CA 10 MG TABLET (FP) PO SCH (22:33)
[2020-04-14] MEDS: MELATONIN 5 MG TABLETS PO SCH (22:34)
[2020-04-14] MEDS: risperiDONE 1 MG TABLET PO SCH (22:34)
[2020-04-14] MEDS: THIAMINE HCL 100 MG TABLET (FP) PO SCH (22:34)
[2020-04-14] MEDS: POTASSIUM CHLORIDE ORAL LIQUID 20 MEQ/15 ML PO SCH (22:34)
[2020-04-15] MEDS: chlordiazePOXIDE HCL 10 MG CAPSULE PO SCH ×2 (05:27→17:27)
[2020-04-15] MEDS: metFORMIN HCL 500 MG TABLET (FP) PO SCH ×2 (06:14→17:27)
[2020-04-15] MEDS: NICOTINE 14 MG/24 HOURS TOPICAL PATCH TD SCH (10:14)
[2020-04-15] MEDS: BACITRACIN 0.9 GM PACKET TP SCH ×2 (10:14→22:45)
[2020-04-15] MEDS: PRENATAL VITAMINS W/ FOLIC ACID TABLET (FP) PO SCH (10:14)
[2020-04-15] MEDS: BUDESONIDE/FORMETEROL FUMARATE 160/4.5 mcg INHALER IH SCH ×2 (10:14→22:47)
[2020-04-15] MEDS: amLODIPine BESYLATE 5 MG TABLET (FP) PO SCH (10:14)
[2020-04-15] MEDS: POTASSIUM CHLORIDE ORAL LIQUID 20 MEQ/15 ML PO SCH ×2 (10:15→22:46)
[2020-04-15] MEDS: NICOTINE POLACRILEX 2 MG GUM BUC PRN (10:15)
[2020-04-15] MEDS ORDERED: POTASSIUM CHLORIDE ORAL LIQUID 20 MEQ/15 ML PO ONE (14:30)
[2020-04-15] MEDS: ATORVASTATIN CA 10 MG TABLET (FP) PO SCH (22:46)
[2020-04-15] MEDS: BENZTROPINE MESYLATE 1 MG TABLET PO SCH (22:46)
[2020-04-15] MEDS: MELATONIN 5 MG TABLETS PO SCH (22:46)
[2020-04-15] MEDS: THIAMINE HCL 100 MG TABLET (FP) PO SCH (22:46)
[2020-04-15] MEDS: risperiDONE 1 MG TABLET PO SCH (22:46)
[2020-04-16] MEDS ORDERED: chlordiazePOXIDE HCL 10 MG CAPSULE PO ONE (05:00)
[2020-04-16] MEDS: metFORMIN HCL 500 MG TABLET (FP) PO SCH (07:12)
[2020-04-16 09:12] VITALS: BP 113/74; PULSE 112; TEMP 97.5
[2020-04-16] MEDS: amLODIPine BESYLATE 5 MG TABLET (FP) PO SCH (10:24)
[2020-04-16] MEDS: BACITRACIN 0.9 GM PACKET TP SCH (10:24)
[2020-04-16] MEDS: POTASSIUM CHLORIDE ORAL LIQUID 20 MEQ/15 ML PO SCH (10:24)
[2020-04-16] MEDS: BUDESONIDE/FORMETEROL FUMARATE 160/4.5 mcg INHALER IH SCH (10:24)
[2020-04-16] MEDS: NICOTINE 14 MG/24 HOURS TOPICAL PATCH TD SCH (10:24)
[2020-04-16] MEDS: PRENATAL VITAMINS W/ FOLIC ACID TABLET (FP) PO SCH (10:24)
== END 2020-04-16 10:01 | disposition home or self-care (01) | DRG 897 ==
LOC: YASAS 16:48 → Y6N 18:49
PROVIDERS: ADMIT Allergy & Immunology; ATTEND Allergy & Immunology
PROC: HZ2ZZZZ Detoxification Services for Substance Abuse Treatment (ICD-10-PCS; principal; 2020-04-11)
DX: F10.230 Alcohol dependence with withdrawal, uncomplicated (principal); F17.210 Nicotine dependence, cigarettes, uncomplicated; F25.1 Schizoaffective disorder, depressive type; F31.9 Bipolar disorder, unspecified; F41.9 Anxiety disorder, unspecified; A53.0 Latent syphilis, unspecified as early or late; D72.819 Decreased white blood cell count, unspecified; E87.6 Hypokalemia; E78.5 Hyperlipidemia, unspecified; E11.9 Type 2 diabetes mellitus without complications; I10 Essential (primary) hypertension; I25.2 Old myocardial infarction; J43.0 Unilateral pulmonary emphysema [MacLeod's syndrome]; J45.20 Mild intermittent asthma, uncomplicated; K21.9 Gastro-esophageal reflux disease without esophagitis; M17.11 Unilateral primary osteoarthritis, right knee; R00.0 Tachycardia, unspecified; R79.89 Other specified abnormal findings of blood chemistry; E66.9 Obesity, unspecified; Z68.39 Body mass index [BMI] 39.0-39.9, adult; Z86.19 Personal history of other infectious and parasitic diseases; Z88.5 Allergy status to narcotic agent; Z91.011 Allergy to milk products; Z91.018 Allergy to other foods
CPT/HCPCS: 36415; 80053; 82962; 84132; 85027; 86593; 86780; 93005; 93010; C9803; J2794; U0003

== ENCOUNTER 2020-05-22 11:16 | Inpatient (IN) | payer BC, OTHER ==
[2020-05-22 12:31] VITALS: BMI 35.4
[2020-05-22] MEDS ORDERED: ONDANSETRON *ODT* 4 MG TABLET SL PRN (12:34)
[2020-05-22] MEDS ORDERED: MAG HYDROX/AL HYDROX/SIMETH 30 ML UNIT-DOSE CUP PO PRN (12:34)
[2020-05-22] MEDS ORDERED: BISMUTH SUBSALICYLATE 524 MG/30 ML UD PO PRN (12:34)
[2020-05-22] MEDS ORDERED: MAGNESIUM CITRATE 300 ML BOTTLE PO PRN (12:34)
[2020-05-22] MEDS ORDERED: ACETAMINOPHEN 325 MG TABLET (FP) PO PRN ×2 (12:34)
[2020-05-22] MEDS ORDERED: MENTHOL/PHENOL 1 EACH UD MM PRN (12:34)
[2020-05-22] MEDS ORDERED: MAGNESIUM HYDROX 2400MG/30ML ORAL SUSPENSION 30 ML CUP PO PRN (12:34)
[2020-05-22] MEDS ORDERED: NICOTINE POLACRILEX 2 MG GUM BUC PRN (12:34)
[2020-05-22] MEDS ORDERED: chlordiazePOXIDE HCL 25 MG CAPSULE PO PRN (12:34)
[2020-05-22] MEDS ORDERED: IBUPROFEN 400 MG TABLET (FP) PO PRN (12:34)
[2020-05-22] MEDS ORDERED: METHOCARBAMOL 500 MG TABLET PO PRN (12:34)
[2020-05-22] MEDS: PRENATAL VITAMINS W/ FOLIC ACID TABLET (FP) PO SCH (15:16)
[2020-05-22] MEDS: chlordiazePOXIDE HCL 25 MG CAPSULE PO SCH ×3 (15:17→23:32)
[2020-05-22] MEDS: hydrOXYzine PAMOATE 25 MG CAPSULE (FP) PO SCH ×3 (15:17→23:31)
[2020-05-22] MEDS ORDERED: ALBUTEROL SO4 HFA INHALER IH PRN (15:25)
[2020-05-22 16:15] LABS: POTASSIUM 3.7 mmol/L (3.5-5.1)
[2020-05-22 16:17] LABS: ALBUMIN 4.2 g/dl (3.4-5.0); BLOOD UREA NITROGEN 26.4 mg/dL (7-18); CALCIUM 8.9 mg/dL (8.5-10.1)
[2020-05-22 16:18] LABS: HEMOGLOBIN 13.4 GM/dL (11.7-16.9); MCH 30.1 pg (25.7-33.7); MCHC 33.4 g/dl (32.0-35.9); MEAN PLT VOLUME 7.8 fl (7.5-11.1); PLATELET COUNT 317 K/MM3 (134-434); RBC 4.44 M/mm3 (4.00-5.60); RDW 16.4 % (11.9-15.9); WHITE BLOOD COUNT 4.6 K/mm3 (4.0-10.0)
[2020-05-22 16:20] LABS: CREATININE 1.5 mg/dL (0.55-1.3)
[2020-05-22 16:22] LABS: BILIRUBIN,TOTAL 0.6 mg/dL (0.2-1); TOT PROT 7.5 g/dl (6.4-8.2)
[2020-05-22] MEDS: FLUTICASONE PROP 0.05% 16 GM NASAL SPRAY NS SCH (19:25)
[2020-05-22] MEDS: metFORMIN HCL 500 MG TABLET (FP) PO SCH (19:26)
[2020-05-22] MEDS: ATORVASTATIN CA 10 MG TABLET (FP) PO SCH (23:31)
[2020-05-22] MEDS: THIAMINE HCL 100 MG TABLET (FP) PO SCH (23:32)
[2020-05-22] MEDS: BUDESONIDE/FORMETEROL FUMARATE 160/4.5 mcg INHALER IH SCH (23:33)
[2020-05-22] MEDS: MELATONIN 5 MG TABLETS PO SCH (23:34)
[2020-05-23] MEDS: hydrOXYzine PAMOATE 25 MG CAPSULE (FP) PO SCH ×5 (06:38→23:28)
[2020-05-23] MEDS: metFORMIN HCL 500 MG TABLET (FP) PO SCH ×2 (06:38→18:17)
[2020-05-23] MEDS: chlordiazePOXIDE HCL 25 MG CAPSULE PO SCH ×4 (06:38→23:28)
[2020-05-23] MEDS: amLODIPine BESYLATE 5 MG TABLET (FP) PO SCH (10:15)
[2020-05-23] MEDS: PRENATAL VITAMINS W/ FOLIC ACID TABLET (FP) PO SCH (10:15)
[2020-05-23] MEDS: ASPIRIN 81 MG CHEWABLE TABLETS PO SCH (10:15)
[2020-05-23] MEDS: metoPROLOL SUCCINATE 25 MG TAB.SR.24H (FP) PO SCH (10:15)
[2020-05-23] MEDS: BUDESONIDE/FORMETEROL FUMARATE 160/4.5 mcg INHALER IH SCH ×2 (10:17→23:26)
[2020-05-23] MEDS: FLUTICASONE PROP 0.05% 16 GM NASAL SPRAY NS SCH (10:17)
[2020-05-23] MEDS ORDERED: PENICILLIN G BENZATHINE 2,400,000 UNIT/4 ML PFS IM ONE (12:38)
[2020-05-23] MEDS: risperiDONE 2 MG TABLET PO SCH (23:26)
[2020-05-23] MEDS: BENZTROPINE MESYLATE 1 MG TABLET PO SCH (23:26)
[2020-05-23] MEDS: ATORVASTATIN CA 10 MG TABLET (FP) PO SCH (23:26)
[2020-05-23] MEDS: MELATONIN 5 MG TABLETS PO SCH (23:26)
[2020-05-23] MEDS: THIAMINE HCL 100 MG TABLET (FP) PO SCH (23:28)
[2020-05-24] MEDS: metFORMIN HCL 500 MG TABLET (FP) PO SCH ×2 (08:13→16:36)
[2020-05-24] MEDS: hydrOXYzine PAMOATE 25 MG CAPSULE (FP) PO SCH ×5 (08:13→23:13)
[2020-05-24] MEDS: chlordiazePOXIDE HCL 25 MG CAPSULE PO SCH ×4 (08:13→23:14)
[2020-05-24] MEDS: BUDESONIDE/FORMETEROL FUMARATE 160/4.5 mcg INHALER IH SCH ×2 (11:13→23:13)
[2020-05-24] MEDS: PRENATAL VITAMINS W/ FOLIC ACID TABLET (FP) PO SCH (11:13)
[2020-05-24] MEDS: ASPIRIN 81 MG CHEWABLE TABLETS PO SCH (11:13)
[2020-05-24] MEDS: FLUTICASONE PROP 0.05% 16 GM NASAL SPRAY NS SCH (11:13)
[2020-05-24] MEDS: metoPROLOL SUCCINATE 25 MG TAB.SR.24H (FP) PO SCH (11:13)
[2020-05-24] MEDS: amLODIPine BESYLATE 5 MG TABLET (FP) PO SCH (11:13)
[2020-05-24] MEDS ORDERED: PENICILLIN G BENZATHINE 2,400,000 UNIT/4 ML PFS IM ONE (16:00)
[2020-05-24] MEDS: BENZTROPINE MESYLATE 1 MG TABLET PO SCH (23:13)
[2020-05-24] MEDS: THIAMINE HCL 100 MG TABLET (FP) PO SCH (23:13)
[2020-05-24] MEDS: risperiDONE 2 MG TABLET PO SCH (23:13)
[2020-05-24] MEDS: ATORVASTATIN CA 10 MG TABLET (FP) PO SCH (23:13)
[2020-05-24] MEDS: MELATONIN 5 MG TABLETS PO SCH (23:13)
[2020-05-25] MEDS ORDERED: chlordiazePOXIDE HCL 10 MG CAPSULE PO PRN
[2020-05-25] MEDS: hydrOXYzine PAMOATE 25 MG CAPSULE (FP) PO SCH ×5 (06:02→22:44)
[2020-05-25] MEDS: chlordiazePOXIDE HCL 10 MG CAPSULE PO SCH ×4 (06:02→22:44)
[2020-05-25] MEDS: metFORMIN HCL 500 MG TABLET (FP) PO SCH ×2 (06:02→17:58)
[2020-05-25] MEDS: PRENATAL VITAMINS W/ FOLIC ACID TABLET (FP) PO SCH (10:57)
[2020-05-25] MEDS: FLUTICASONE PROP 0.05% 16 GM NASAL SPRAY NS SCH (10:57)
[2020-05-25] MEDS: BUDESONIDE/FORMETEROL FUMARATE 160/4.5 mcg INHALER IH SCH ×2 (10:57→22:52)
[2020-05-25] MEDS: amLODIPine BESYLATE 5 MG TABLET (FP) PO SCH (10:58)
[2020-05-25] MEDS: ASPIRIN 81 MG CHEWABLE TABLETS PO SCH (10:58)
[2020-05-25] MEDS: metoPROLOL SUCCINATE 25 MG TAB.SR.24H (FP) PO SCH (10:58)
[2020-05-25] MEDS: BENZTROPINE MESYLATE 1 MG TABLET PO SCH (22:43)
[2020-05-25] MEDS: MELATONIN 5 MG TABLETS PO SCH (22:44)
[2020-05-25] MEDS: THIAMINE HCL 100 MG TABLET (FP) PO SCH (22:44)
[2020-05-25] MEDS: ATORVASTATIN CA 10 MG TABLET (FP) PO SCH (22:44)
[2020-05-25] MEDS: risperiDONE 2 MG TABLET PO SCH (22:44)
[2020-05-26] MEDS: hydrOXYzine PAMOATE 25 MG CAPSULE (FP) PO SCH ×5 (06:44→22:35)
[2020-05-26] MEDS: metFORMIN HCL 500 MG TABLET (FP) PO SCH ×2 (06:44→17:42)
[2020-05-26] MEDS: chlordiazePOXIDE HCL 10 MG CAPSULE PO SCH ×2 (06:44→17:43)
[2020-05-26] MEDS: ASPIRIN 81 MG CHEWABLE TABLETS PO SCH (10:26)
[2020-05-26] MEDS: amLODIPine BESYLATE 5 MG TABLET (FP) PO SCH (10:26)
[2020-05-26] MEDS: PRENATAL VITAMINS W/ FOLIC ACID TABLET (FP) PO SCH (10:26)
[2020-05-26] MEDS: BUDESONIDE/FORMETEROL FUMARATE 160/4.5 mcg INHALER IH SCH ×2 (10:26→22:34)
[2020-05-26] MEDS: FLUTICASONE PROP 0.05% 16 GM NASAL SPRAY NS SCH (10:27)
[2020-05-26] MEDS: metoPROLOL SUCCINATE 25 MG TAB.SR.24H (FP) PO SCH (12:04)
[2020-05-26] MEDS: risperiDONE 2 MG TABLET PO SCH (22:35)
[2020-05-26] MEDS: BENZTROPINE MESYLATE 1 MG TABLET PO SCH (22:35)
[2020-05-26] MEDS: THIAMINE HCL 100 MG TABLET (FP) PO SCH (22:35)
[2020-05-26] MEDS: MELATONIN 5 MG TABLETS PO SCH (22:35)
[2020-05-26] MEDS: ATORVASTATIN CA 10 MG TABLET (FP) PO SCH (22:35)
[2020-05-27] MEDS ORDERED: chlordiazePOXIDE HCL 10 MG CAPSULE PO ONE (05:00)
[2020-05-27] MEDS: hydrOXYzine PAMOATE 25 MG CAPSULE (FP) PO SCH ×2 (06:21→09:12)
[2020-05-27] MEDS: metFORMIN HCL 500 MG TABLET (FP) PO SCH (06:46)
[2020-05-27 09:01] VITALS: TEMP 97.3
[2020-05-27] MEDS: BUDESONIDE/FORMETEROL FUMARATE 160/4.5 mcg INHALER IH SCH (09:11)
[2020-05-27] MEDS: metoPROLOL SUCCINATE 25 MG TAB.SR.24H (FP) PO SCH (09:11)
[2020-05-27] MEDS: FLUTICASONE PROP 0.05% 16 GM NASAL SPRAY NS SCH (09:11)
[2020-05-27] MEDS: ASPIRIN 81 MG CHEWABLE TABLETS PO SCH (09:11)
[2020-05-27] MEDS: PRENATAL VITAMINS W/ FOLIC ACID TABLET (FP) PO SCH (09:11)
[2020-05-27] MEDS: amLODIPine BESYLATE 5 MG TABLET (FP) PO SCH (09:11)
[2020-05-27 13:14] VITALS: BP 140/95; PULSE 104
== END 2020-05-27 13:52 | disposition other institution (70) | DRG 897 ==
LOC: YASAS 11:16 → Y3N 13:52
PROVIDERS: ADMIT Allergy & Immunology; ATTEND Allergy & Immunology
PROC: HZ2ZZZZ Detoxification Services for Substance Abuse Treatment (ICD-10-PCS; principal; 2020-05-19)
DX: F10.230 Alcohol dependence with withdrawal, uncomplicated (principal); F14.20 Cocaine dependence, uncomplicated; N17.9 Acute kidney failure, unspecified; F17.210 Nicotine dependence, cigarettes, uncomplicated; F25.1 Schizoaffective disorder, depressive type; F31.9 Bipolar disorder, unspecified; I10 Essential (primary) hypertension; E11.65 Type 2 diabetes mellitus with hyperglycemia; Z79.84 Long term (current) use of oral hypoglycemic drugs; J45.20 Mild intermittent asthma, uncomplicated; J43.9 Emphysema, unspecified; A53.0 Latent syphilis, unspecified as early or late; M17.11 Unilateral primary osteoarthritis, right knee; E66.9 Obesity, unspecified; Z68.35 Body mass index [BMI] 35.0-35.9, adult; Z91.011 Allergy to milk products; Z88.5 Allergy status to narcotic agent
CPT/HCPCS: 36415; 80053; 82962; 85027; 86593; 86780; C9803; U0003

== ENCOUNTER 2020-08-27 18:44 | Inpatient (IN) | payer BC, OTHER ==
[2020-08-27 19:43] VITALS: BMI 31.3
[2020-08-27] MEDS ORDERED: LORazepam 1 MG TABLET PO PRN (20:44)
[2020-08-27] MEDS ORDERED: ACETAMINOPHEN 325 MG TABLET (FP) PO PRN ×2 (20:44)
[2020-08-27] MEDS ORDERED: MAG HYDROX/AL HYDROX/SIMETH 30 ML UNIT-DOSE CUP PO PRN (20:44)
[2020-08-27] MEDS ORDERED: BISMUTH SUBSALICYLATE 524 MG/30 ML PO PRN (20:44)
[2020-08-27] MEDS ORDERED: MENTHOL/PHENOL 1 EACH UD MM PRN (20:44)
[2020-08-27] MEDS ORDERED: NICOTINE POLACRILEX 2 MG GUM BUC PRN (20:44)
[2020-08-27] MEDS ORDERED: IBUPROFEN 400 MG TABLET (FP) PO PRN (20:44)
[2020-08-27] MEDS ORDERED: MAGNESIUM HYDROX 2400MG/30ML ORAL SUSPENSION 30 ML CUP PO PRN (20:44)
[2020-08-27] MEDS ORDERED: METHOCARBAMOL 500 MG TABLET PO PRN (20:44)
[2020-08-27] MEDS ORDERED: ONDANSETRON *ODT* 4 MG TABLET SL PRN (20:44)
[2020-08-27] MEDS ORDERED: MAGNESIUM CITRATE 300 ML BOTTLE PO PRN (20:44)
[2020-08-27] MEDS: THIAMINE HCL 100 MG TABLET (FP) PO SCH (23:00)
[2020-08-27] MEDS: hydrOXYzine PAMOATE 25 MG CAPSULE (FP) PO SCH (23:00)
[2020-08-27] MEDS: ALBUTEROL SO4 HFA INHALER IH PRN (23:00)
[2020-08-27] MEDS: LORazepam 2 MG TABLET PO SCH (23:01)
[2020-08-27] MEDS: MELATONIN 5 MG TABLETS PO SCH (23:02)
[2020-08-28] MEDS: LORazepam 2 MG TABLET PO SCH ×4 (07:47→22:04)
[2020-08-28] MEDS: hydrOXYzine PAMOATE 25 MG CAPSULE (FP) PO SCH ×2 (07:48→10:15)
[2020-08-28] MEDS: metFORMIN HCL 500 MG TABLET (FP) PO SCH ×2 (07:48→17:09)
[2020-08-28 09:53] LABS: CHLORIDE 105 mmol/L (98-107); SODIUM 141 mmol/L (136-145)
[2020-08-28 09:57] LABS: HEMOGLOBIN 10.5 GM/dL (11.7-16.9); MCH 30.5 pg (25.7-33.7); MCHC 33.8 g/dl (32.0-35.9); MEAN CELL VOLUME 90.1 fl (80-96); MEAN PLT VOLUME 7.6 fl (7.5-11.1); PLATELET COUNT 198 K/MM3 (134-434); RBC 3.45 M/mm3 (4.00-5.60); RDW 16.4 % (11.9-15.9); WHITE BLOOD COUNT 3.2 K/mm3 (4.0-10.0)
[2020-08-28 09:59] LABS: ALBUMIN 2.9 g/dl (3.4-5.0); BLOOD UREA NITROGEN 4.9 mg/dL (7-18); CO2 27 mmol/L (21-32); GLUCOSE,RANDOM 85 mg/dL (74-106)
[2020-08-28 10:01] LABS: CREATININE 0.5 mg/dL (0.55-1.3)
[2020-08-28 10:02] LABS: SGOT/AST 15 U/L (15-37)
[2020-08-28 10:03] LABS: BILIRUBIN,TOTAL 0.8 mg/dL (0.2-1); TOT PROT 5.5 g/dl (6.4-8.2)
[2020-08-28 10:05] LABS: ALK PHOS 81 U/L (45-117); SGPT/ALT 21 U/L (13-61)
[2020-08-28 10:06] LABS: ANION GAP 8 MMOL/L (8-16); CALCIUM 6.7 mg/dL (8.5-10.1)
[2020-08-28] MEDS: ASPIRIN 81 MG CHEWABLE TABLETS PO SCH (10:14)
[2020-08-28] MEDS: metoPROLOL SUCCINATE 25 MG TAB.SR.24H (FP) PO SCH (10:14)
[2020-08-28] MEDS: LISINOPRIL 10 MG TABLET PO SCH (10:14)
[2020-08-28] MEDS: PRENATAL VITAMINS W/ FOLIC ACID TABLET (FP) PO SCH (10:14)
[2020-08-28] MEDS ORDERED: hydrOXYzine PAMOATE 25 MG CAPSULE (FP) PO PRN (11:07)
[2020-08-28] MEDS: POTASSIUM CHLORIDE ORAL LIQUID 20 MEQ/15 ML PO SCH ×3 (14:00→20:21)
[2020-08-28] MEDS: CALCIUM CARBONATE 650 MG TABLET PO SCH ×2 (14:00→22:04)
[2020-08-28] MEDS: THIAMINE HCL 100 MG TABLET (FP) PO SCH (22:04)
[2020-08-28] MEDS: ATORVASTATIN CA 10 MG TABLET (FP) PO SCH (22:04)
[2020-08-28] MEDS: MELATONIN 5 MG TABLETS PO SCH (22:04)
[2020-08-29] MEDS: LORazepam 1 MG TABLET PO SCH ×4 (06:41→23:05)
[2020-08-29] MEDS: metFORMIN HCL 500 MG TABLET (FP) PO SCH ×2 (06:41→17:15)
[2020-08-29 10:25] LABS: HEMATOCRIT 35.2 % (35.4-49); HEMOGLOBIN 11.7 GM/dL (11.7-16.9); MCH 30.2 pg (25.7-33.7); MCHC 33.2 g/dl (32.0-35.9); MEAN CELL VOLUME 91.1 fl (80-96); PLATELET COUNT 212 K/MM3 (134-434); RBC 3.87 M/mm3 (4.00-5.60); RDW 16.1 % (11.9-15.9); WHITE BLOOD COUNT 3.7 K/mm3 (4.0-10.0)
[2020-08-29] MEDS: metoPROLOL SUCCINATE 25 MG TAB.SR.24H (FP) PO SCH (10:28)
[2020-08-29] MEDS: CALCIUM CARBONATE 650 MG TABLET PO SCH ×2 (10:28→23:07)
[2020-08-29] MEDS: ASPIRIN 81 MG CHEWABLE TABLETS PO SCH (10:28)
[2020-08-29] MEDS: LISINOPRIL 10 MG TABLET PO SCH (10:28)
[2020-08-29] MEDS: PRENATAL VITAMINS W/ FOLIC ACID TABLET (FP) PO SCH (10:28)
[2020-08-29 10:38] LABS: BLOOD UREA NITROGEN 3.6 mg/dL (7-18)
[2020-08-29 10:40] LABS: CREATININE 0.7 mg/dL (0.55-1.3)
[2020-08-29 10:41] LABS: BILIRUBIN,TOTAL 0.5 mg/dL (0.2-1)
[2020-08-29 10:42] LABS: TOT PROT 5.8 g/dl (6.4-8.2)
[2020-08-29 10:49] LABS: CALCIUM 7.8 mg/dL (8.5-10.1)
[2020-08-29] MEDS: ALBUTEROL SO4 HFA INHALER IH PRN (10:54)
[2020-08-29] MEDS ORDERED: PENICILLIN G BENZATHINE 2,400,000 UNIT/4 ML PFS IM ONE (12:28)
[2020-08-29] MEDS: MELATONIN 5 MG TABLETS PO SCH (23:04)
[2020-08-29] MEDS: THIAMINE HCL 100 MG TABLET (FP) PO SCH (23:04)
[2020-08-29] MEDS: ATORVASTATIN CA 10 MG TABLET (FP) PO SCH (23:04)
[2020-08-30] MEDS ORDERED: LORazepam 0.5 MG TABLET PO PRN
[2020-08-30] MEDS: LORazepam 0.5 MG TABLET PO SCH ×4 (07:19→22:30)
[2020-08-30] MEDS: metFORMIN HCL 500 MG TABLET (FP) PO SCH ×2 (07:43→17:11)
[2020-08-30] MEDS: PRENATAL VITAMINS W/ FOLIC ACID TABLET (FP) PO SCH (10:59)
[2020-08-30] MEDS: ASPIRIN 81 MG CHEWABLE TABLETS PO SCH (10:59)
[2020-08-30] MEDS: metoPROLOL SUCCINATE 25 MG TAB.SR.24H (FP) PO SCH (11:00)
[2020-08-30] MEDS: LISINOPRIL 10 MG TABLET PO SCH (11:00)
[2020-08-30] MEDS: CALCIUM CARBONATE 650 MG TABLET PO SCH ×2 (11:01→22:32)
[2020-08-30] MEDS: ALBUTEROL SO4 HFA INHALER IH PRN (15:15)
[2020-08-30] MEDS: ATORVASTATIN CA 10 MG TABLET (FP) PO SCH (22:30)
[2020-08-30] MEDS: MELATONIN 5 MG TABLETS PO SCH (22:31)
[2020-08-30] MEDS: THIAMINE HCL 100 MG TABLET (FP) PO SCH (22:31)
[2020-08-31] MEDS ORDERED: LORazepam 0.5 MG TABLET PO ONE (05:00)
[2020-08-31] MEDS: metFORMIN HCL 500 MG TABLET (FP) PO SCH (07:12)
[2020-08-31 09:36] VITALS: BP 121/82; PULSE 112; TEMP 98.1
[2020-08-31] MEDS: metoPROLOL SUCCINATE 25 MG TAB.SR.24H (FP) PO SCH (10:30)
[2020-08-31] MEDS: PRENATAL VITAMINS W/ FOLIC ACID TABLET (FP) PO SCH (10:30)
[2020-08-31] MEDS: LISINOPRIL 10 MG TABLET PO SCH (10:30)
[2020-08-31] MEDS: ASPIRIN 81 MG CHEWABLE TABLETS PO SCH (10:30)
[2020-08-31] MEDS: CALCIUM CARBONATE 650 MG TABLET PO SCH (10:30)
== END 2020-08-31 10:38 | disposition home or self-care (01) | DRG 897 ==
LOC: YASAS 18:44 → UNDOADMIN 21:35 → Y3N 21:35
PROVIDERS: ADMIT Allergy & Immunology; ATTEND Allergy & Immunology
PROC: HZ2ZZZZ Detoxification Services for Substance Abuse Treatment (ICD-10-PCS; principal; 2020-08-27)
DX: F10.230 Alcohol dependence with withdrawal, uncomplicated (principal); F14.20 Cocaine dependence, uncomplicated; F17.210 Nicotine dependence, cigarettes, uncomplicated; F25.1 Schizoaffective disorder, depressive type; F31.9 Bipolar disorder, unspecified; F41.9 Anxiety disorder, unspecified; A53.0 Latent syphilis, unspecified as early or late; E11.9 Type 2 diabetes mellitus without complications; E78.5 Hyperlipidemia, unspecified; I25.10 Atherosclerotic heart disease of native coronary artery without angina pectoris; I10 Essential (primary) hypertension; J44.9 Chronic obstructive pulmonary disease, unspecified; K21.9 Gastro-esophageal reflux disease without esophagitis; Z79.84 Long term (current) use of oral hypoglycemic drugs; Z88.5 Allergy status to narcotic agent; Z91.011 Allergy to milk products
CPT/HCPCS: 36415; 80053; 82962; 85027; 86593; 86780; C9803; U0003; U0005

== ENCOUNTER 2023-08-22 19:40 | Inpatient (IN) | payer OTHER ==
[2023-08-22 20:29] VITALS: BMI 31.4
[2023-08-22] MEDS ORDERED: IBUPROFEN 400 MG TABLET (FP) PO PRN (21:06)
[2023-08-22] MEDS ORDERED: ACETAMINOPHEN 325 MG TABLET (FP) PO PRN (21:06)
[2023-08-22] MEDS ORDERED: METHOCARBAMOL 500 MG TABLET PO PRN (21:06)
[2023-08-22] MEDS ORDERED: POLYETHYLENE GLYCOL (HEALTHYLAX) 3350 17 GM PACKET PO PRN (21:06)
[2023-08-22] MEDS ORDERED: DICYCLOMINE HCL 10 MG CAPSULE PO PRN (21:06)
[2023-08-22] MEDS ORDERED: LOPERAMIDE HCL 2 MG CAPSULE PO PRN (21:06)
[2023-08-22] MEDS ORDERED: ONDANSETRON *ODT* 4 MG TABLET SL PRN (21:06)
[2023-08-22] MEDS ORDERED: guaiFENesin 600 MG TABLET.ER (FP) PO PRN (21:06)
[2023-08-22] MEDS ORDERED: MAGNESIUM HYDROX 2400MG/30ML ORAL SUSPENSION 30 ML CUP PO PRN (21:06)
[2023-08-22] MEDS ORDERED: hydrOXYzine PAMOATE 25 MG CAPSULE (FP) PO PRN (21:06)
[2023-08-22] MEDS ORDERED: BENZONATATE 200 MG CAPSULE PO PRN (21:06)
[2023-08-22] MEDS ORDERED: IBUPROFEN 600 MG TABLET (FP) PO PRN (21:06)
[2023-08-22] MEDS ORDERED: BISMUTH SUBSALICYLATE 524 MG/30 ML PO PRN (21:06)
[2023-08-22] MEDS ORDERED: MAG HYDROX/AL HYDROX/SIMETH 30 ML UNIT-DOSE CUP PO PRN (21:06)
[2023-08-22] MEDS: MELATONIN 5 MG TABLETS PO SCH (22:07)
[2023-08-22] MEDS: THIAMINE 100 MG TABLET PO SCH (22:08)
[2023-08-23] MEDS: PRENATAL VITAMINS W/ FOLIC ACID TABLET (FP) PO SCH (09:07)
[2023-08-23] MEDS ORDERED: diazePAM 5 MG TABLET PO PRN (09:14)
[2023-08-23] MEDS: BUDESONIDE/FORMETEROL FUMARATE 80/4.5 mcg INHALER IH SCH (10:32)
[2023-08-23] MEDS: diazePAM 5 MG TABLET PO SCH (11:31)
[2023-08-23] MEDS: PNEUMOC 20-VAL CONJ-DIP CRM/PF 0.5 ML SYRINGE IM ONE (11:32)
[2023-08-23 11:36] LABS: HEMOGLOBIN 11.3 GM/dL (11.7-16.9); MCH 28.1 pg (25.7-33.7); MCHC 32.3 g/dl (32.0-35.9); MEAN CELL VOLUME 86.9 fl (80-96); MEAN PLT VOLUME 7.1 fl (7.5-11.1); PLATELET COUNT 223 10^3/uL (134-434); RBC 4.02 M/mm3 (4.00-5.60); RDW 13.9 % (11.9-15.9); WHITE BLOOD COUNT 4.2 K/mm3 (4.0-10.0)
[2023-08-23 11:38] LABS: POTASSIUM 4.2 mmol/L (3.5-5.1)
[2023-08-23 11:42] LABS: BLOOD UREA NITROGEN 17.5 mg/dL (7-18)
[2023-08-23 11:45] LABS: CREATININE 0.9 mg/dL (0.55-1.3)
[2023-08-23 11:46] LABS: BILIRUBIN,TOTAL 0.5 mg/dL (0.2-1); TOT PROT 5.3 g/dl (6.4-8.2)
[2023-08-23 12:33] LABS: HIV INTERPRETATION NEGATIVE (NEGATIVE)
[2023-08-23] MEDS: GABAPENTIN 300 MG CAPSULE PO PRN (14:46)
[2023-08-23] MEDS: QUEtiapine FUMARATE 50 MG TABLET PO SCH (22:26)
[2023-08-24] MEDS: NICOTINE POLACRILEX 2 MG GUM BUC PRN (10:58)
[2023-08-24] MEDS: metFORMIN HCL 500 MG TABLET (FP) PO SCH (16:25)
[2023-08-24] MEDS: NAPROXEN 500 MG TABLET PO PRN (22:55)
[2023-08-25] MEDS: diazePAM 5 MG TABLET PO SCH (06:29)
[2023-08-25] MEDS: ALBUTEROL SO4 HFA INHALER IH PRN (06:37)
[2023-08-25] MEDS: LISINOPRIL 10 MG TABLET PO SCH (10:37)
[2023-08-25] MEDS: METHOCARBAMOL 750 MG TABLET PO PRN (12:57)
[2023-08-25] MEDS ORDERED: LIDOCAINE 4% PATCH TP SCH (13:30)
[2023-08-25] MEDS: LIDOCAINE 5% TOPICAL PATCH TP SCH (13:56)
[2023-08-25] MEDS ORDERED: LIDOCAINE PATCH REMOVAL MC SCH (22:00)
[2023-08-25] MEDS: LIDOCAINE PATCH REMOVAL MC SCH (22:57)
[2023-08-26] MEDS: diazePAM 5 MG TABLET PO SCH (07:13)
[2023-08-26] MEDS ORDERED: LIDOCAINE 4% PATCH TP SCH (10:00)
[2023-08-26 12:49] VITALS: RESP 18
[2023-08-26] MEDS: BENZOCAINE/MENTHOL (CHLORASEPTIC ) LOZENGE MM PRN (13:14)
[2023-08-27] MEDS: diazePAM 5 MG TABLET PO ONE (06:07)
[2023-08-27 06:51] VITALS: BP 122/75; PULSE 90; TEMP 97.6
== END 2023-08-27 08:58 | disposition home or self-care (01) | DRG 897 ==
LOC: YASAS 19:40 → Y3N 21:09
PROVIDERS: ADMIT Allergy & Immunology; ATTEND Surgery
PROC: HZ2ZZZZ Detoxification Services for Substance Abuse Treatment (ICD-10-PCS; principal; 2023-08-22)
DX: F10.230 Alcohol dependence with withdrawal, uncomplicated (principal); F14.20 Cocaine dependence, uncomplicated; F17.210 Nicotine dependence, cigarettes, uncomplicated; F25.9 Schizoaffective disorder, unspecified; F31.9 Bipolar disorder, unspecified; I10 Essential (primary) hypertension; J44.9 Chronic obstructive pulmonary disease, unspecified; J45.20 Mild intermittent asthma, uncomplicated; K21.9 Gastro-esophageal reflux disease without esophagitis; M17.11 Unilateral primary osteoarthritis, right knee; E11.9 Type 2 diabetes mellitus without complications; Z79.84 Long term (current) use of oral hypoglycemic drugs; Z99.89 Dependence on other enabling machines and devices; Z88.5 Allergy status to narcotic agent
CPT/HCPCS: 36415; 80053; 80305; 80307; 82962; 85027; 86593; 86780; 87389; 90677; 93005; 93010; G0009